=== PATIENT | female | born 1940 | race Hispanic/Latino ===

== ENCOUNTER 2016-12-16 10:14 | Emergency (ER) | payer MEDICARE ==
[~2016-12-16] VITALS: Ht 154.9 cm; Wt 70.5 kg
[~2016-12-16 10:14] MED LIST: AMLO5TAB2 PO; ASPI-973 PO; ATRINH INH; ATRV10T PO; Acetaminophen PO; BECL8.7A6 IH; CHOL100043 PO; FERR324T2 PO; FLUT16SP NS; GABA-500 PO; INSU100V7 SUBQ; LABE200T PO; LOPE2CAP PO; MONT10TA23 PO; MYCC TOPICAL; OMEP20CA11 PO; ONDA8TAB10 SL
[2016-12-16 10:44] VITALS: BP 128/46; PULSE 72; RESP 12; O2SAT 98
--- NOTE | 2016-12-16 11:30 | ED.REPORT ---
HPI-General Illness Date of Service Dec 16, 2016 ED Provider: Dariel Laguna MD 76 year old female with a history of diabetes, kidney diseased, and HTN presents to the ER via EMS accompanied by her daughter due to an episode of dizziness and near syncope this morning, with nausea and vomiting en route. Associated symptoms include weakness and fatigue. Daughter states that she accidentally took her morning amlodipine last night. She denies abdominal pain, hematemesis, bloody stools, melena, and fever. Patient was discharged from the hospital here a month ago with diagnoses of sepsis, and gangrenous cholecystitis. Since her discharge she has been weak and off-balance, and has fallen multiple times. Seen by Dr. Canada, Nephrology, yesterday for follow- up. Patient lives independently in her home, and receives weekly assistance from nurses at [facility]. Nursing Notes Stated Complaint: WEAK,DIZZY,NECK PAIN Chief Complaint: Neuro Symptoms/ Deficits Nursing Notes Reviewed: Yes Allergies: Coded Allergies: ciprofloxacin HCl (Verified Allergy, Mild, Rash,Itching,, 10/02/16) per PCP record from [facility] erythromycin base (Verified Allergy, Mild, unknown, 10/02/16) per PCP record at [facility] morphine (Verified Adverse Reaction, Intermediate, Nausea,Vomiting, ) Scheduled Amlodipine (Amlodipine) 5 Mg Tablet 10 MG PO DAILY Aspirin (Aspirin) 81 Mg Tablet 81 MG PO DAILY Atorvastatin (Lipitor) 10 Mg Tab 10 MG PO DAILY Cephalexin (Keflex) 500 Mg Capsule 500 MG PO QID Cholecalciferol (Vitamin D3) (Vitamin D) 1,000 Unit Tablet 2,000 UNIT PO DAILY Ferrous Sulfate (Ferrous Sulfate) 324 Mg Tablet.dr 324 MG PO DAILY Fluticasone Propionate (Fluticasone Propionate Nasal) 16 Gm [place].susp 2 SPRAY NS DAILY Gabapentin (Gabapentin) 100 Mg Capsule 100 MG PO HS Insulin Glargine (Lantus U100 Insulin Vial) 100 Unit/Ml Vial 8 UNIT SUBQ BID Ipratropium [place] (Atrovent HFA) 200 Puff/12.9 Gm Inhaler 2 PUFF INH QID Labetalol (Labetalol) 200 Mg Tablet 300 MG PO Q8H Montelukast (Montelukast) 10 Mg Tablet 10 MG PO HS Nystatin (Nystatin) 60 Applic/15 Gm Cream 1 APPLIC TOPICAL BID Omeprazole (Omeprazole) 20 Mg Capsule.dr 40 MG PO DAILY Scheduled PRN ([Acetaminophen]) 325 MG TABLET 650 MG PO QID PRN PRN For Pain Beclomethasone Dipropionate (Qvar) 8.7 Gm Aer.w.adap 2 PUFFS IH BID PRN PRN For Shortness of Breath Loperamide (Loperamide) 2 Mg Capsule 2 MG PO Q4H PRN PRN For Diarrhea or Loose Stool Miscellaneous Medications Ondansetron ODT (Ondansetron ODT) 8 Mg Tab.rapdis 8 MG SL General Time Seen by MD: 11:26 Chief Complaint Dizziness, Other (Near Syncope) Hx Obtained From: Patient Arrived By: Ambulance Sudden in Onset?: No Onset Occurred: 5 - 8 hours ago Associated with: Reports: Nausea, Vomiting, Denies: Abdominal pain, Chest pain, Cough, Fever, Shortness of breath Context Related History: Reports Diabetes mellitus Past Medical History Past Medical History h/o vertigo Severe HTN UTI Atypical pneumonia Reports: Asthma, Diabetes mellitus, GERD, Hyperlipidemia, Hypertension Reports: Kidney disease, Urinary tract infection Past Surgical History Reports: Appendectomy, Hysterectomy Family History noncontributory Smoking History Never Smoker Social History Alcohol Use: Denies alcohol use Other Social History: Good social support, , Local resident Ambulatory Status Independent Review of Systems Full Review of Systems Constitutional: Reports: Fatigue, Weakness - generalized, Denies: Chills, Fever Respiratory: Denies: Non-productive cough, Shortness of breath Cardiovascular: Denies: Chest pain GI: Reports: Nausea, Vomiting, Denies: Abdominal pain, Bloody/tarry stool, Hematemesis, Hematochezia, Melena Neurologic: Reports: Dizziness, Lightheaded, Problem walking, Denies: Focal weakness, Headache Complete sys rev & neg: except as marked. Physical Exam Vital Signs Vital Signs Date Time Temp Pulse Resp B/P Pulse Ox O2 Delivery O2 Flow Rate FiO2 12/16/16 15:21 81 13 155/53 96 Room Air 12/16/16 14:41 81 13 155/53 96 Room Air 12/16/16 14:18 84 13 152/48 97 Room Air 12/16/16 12:43 71 13 135/54 98 Room Air 12/16/16 10:44 36.4 72 12 128/46 98 Room Air Initial VS: Reviewed Neck: Supple, Non-tender, Full range of motion Extremities: Vascular intact, Neuro intact, No swelling, No tenderness Skin: Warm, Dry, No cyanosis Neurologic: Alert, Oriented, Nonfocal General/Constitutional: Awake, Alert, Well developed, Well nourished Head / Eyes: Atraumatic, Normocephalic, PERRL, EOMI Respiratory / Chest: Breath sounds NL, No respiratory distress, No rales, No rhonchi, No wheezing Cardiovascular: Heart rate NL, Regular rhythm, Heart sounds NL, Cap refill not delayed, Peripheral circulation NL Abdomen: Non-tender, No guarding, No rebound Neurologic: Oriented X3, Speech NL, No motor deficits, No sensory deficits, CN II - XII intact Interpretation & Diagnostics Lab Results Interpretation Result Diagram: 12/16/16 1145 12/16/16 1145 Test 12/16/16 11:45 12/16/16 12:40 White Blood Count 8.5th/mm3 (3.8-10.1) Red Blood Count 3.78mil/mm3 (3.90-5.20) Hemoglobin 10.5g/dL (12.0-15.6) Hematocrit 32.9% (35.0-46.0) Mean Corpuscular Volume 87.0fL (81-100) Mean Corpuscular Hemoglobin 27.8pg (27.0-35.0) Mean Corpuscular Hemoglobin Concent 31.9% (32.0-37.0) Red Cell Distribution Width 14.9% (12.3-15.4) Platelet Count 305bil/L (150-400) Neutrophils (%) (Auto) 57.4% (40-74) Lymphocytes (%) (Auto) 20.8% (14-46) Monocytes (%) (Auto) 8.2% (4-12) Eosinophils (%) (Auto) 9.4% (0-5) Basophils (%) (Auto) 0.9% (0-3) Sodium Level 139mEq/L (134-144) Potassium Level 4.4mEq/L (3.5-5.2) Chloride Level 105mEq/L (97-108) Carbon Dioxide Level 21mmol/L (18-29) Blood Urea Nitrogen 33mg/dL (8-27) Creatinine 1.54mg/dL (0.57-1.00) Estimat Glomerular Filtration Rate 47mL/min (>59) Glucose Level 38mg/dL (60-99) Calcium Level 9.5mg/dL (8.5-10.1) Magnesium Level 1.6mg/dL (1.6-2.6) Total Bilirubin 0.2mg/dL (0.0-1.2) Aspartate Amino Transf (AST/SGOT) 31U/L (0-50) Alanine Aminotransferase (ALT/SGPT) 35U/L (0-32) Alkaline Phosphatase 135U/L (25-165) Total Protein 8.3g/dL (6.4-8.4) Albumin 3.9g/dL (3.4-5.0) Urine Color Yellow (YELLOW) Urine Appearance Slightly cloudy Urine pH 5.5 (5.0-8.0) Urine Specific [place] 1.030 (1.003-1.035) Urine Protein 100mg/dL (NEG,TRACE) Urine Glucose (UA) Negativemg/dL (NEGATIVE) Urine Ketones Negativemg/dL (NEGATIVE) Urine Occult Blood Negative (NEGATIVE) Urine Nitrite Negative (NEGATIVE) Urine Bilirubin Negative (NEGATIVE) Urine Urobilinogen Normalmg/dL (NORMAL) Urine Leukocyte Esterase Trace (NEGATIVE) Urine RBC 0-2/hpf (0-2) Urine WBC 6-10/hpf (0-5) Urine Epithelial Cells Occasional/hpf (NONE-MOD) Urine Crystals Amorphous urates (NONE Urine Bacteria Many/hpf (NONE-FEW) Urine Hyaline Casts None/lpf (NONE) Urine Granular Casts None seen (NONE SEEN) Urine Waxy Casts None seen (NONE SEEN) Urine Red Blood Cell Casts None seen (NONE SEEN) Urine White Blood Cell Casts None seen (NONE SEEN) Urine Mucus None seen (None Seen) Urine Trichomonas None seen (NONE SEEN) Urine Yeast None (NONE SEEN) Urinalysis Comment None Urine Culture Reflexed Indicated ECG Interpretation ECG Interpretation: sinus rhythm, rate [address] changes T wave inversions in v5 and v6 Time: 13:13 Interpreted by: ED physician X-Ray Chest Interpretation Chest Xray Interpretation: IMPRESSION: Increased pulmonary vascularity suggesting mild pulmonary congestion. Dictated by: Odilia Kessler M.D. on 12/16/2016 at 12:20 Approved by: Odilia Kessler M.D. on 12/16/2016 at 12:21 View: Portable, 1 view Interpretation / Wet Read by: Interpret - Radiologist Re-Eval/Medical Decision Med Decision/Clinical Course 76-year-old female history of CK D, diabetes, hypertension presenting complaining of weakness 1 month. She reports she has felt weak since being discharged from the hospital one month ago. She is able to ambulate. Lab stable. Vital signs stable. Urine with UTI. Blood sugar was 200 home. It was 38 here but she had not eaten for many hours. She was given 1 amp of D50 and food and her blood sugar remained stable at 200 for greater than 1 hour. Patient was given 1 dose of Rocephin for UTI. We will treat for UTI. Recommend she follow up with primary doctor in 2 days. Recheck blood sugar every couple hours today. Return precautions given. Source of Hx: Old records Time of Eval: 14:47 Re-Evaluation/Progress Note: Discussed lab and radiology results and plan to discharge. Patient understands and agrees to the plan. Return precautions given. All other questions addressed. Counseled Regarding: Diagnosis, Lab results, Need for follow-up, When/why to return to ED Discharge & Departure Primary Impression: UTI (urinary tract infection) Additional Impression: Hypoglycemia Disposition: Home Discharge Condition All VS Reviewed: Yes Condition: Stable Patient Instructions: Urinary Tract Infection in Women (DC) Additional Instructions: Take antibiotics as scheduled, continue blood sugar checks every two hours. Follow-up with your primary care provider tomorrow. Return to the ER if you develop vomiting, abdominal pain, fever, vomiting, or any other worsening or concerning symptoms. Referrals: Jovana Estrada MD (PCP) Fangibmary jo Attestation Portions of this note were transcribed by Khanh Foss. I, Dr. Laguna, personally performed the history, physical exam and medical decision-making; I reviewed and confirmed the accuracy of the information in the transcribed note. Signed by: Genet Gillis, 12/16/2016 - 15:16 copies to: Jovana Estrada MD, Ben M MD Dec 16, 2016 11:29 KHANH FOSS Dec 16, 2016 11:44 Hernesto Amato Dec 16, 2016 13:11
[2016-12-16] MEDS ORDERED: 0.9% Sodium Chloride 1,000 ML IV ONE (11:44)
[2016-12-16] MEDS ORDERED: Ondansetron 2 mg/mL 2 mL Inj IVPUSH ONE (11:45)
[2016-12-16] MEDS ORDERED: Ondansetron 2 mg/mL 2 mL Inj IVPUSH PRN (11:45)
[2016-12-16 12:03] LABS: BASOPHILS % (AUTO) 0.9 % (0-3); EOSINOPHILS % (AUTO) 9.4 % (0-5); MONOCYTES % (AUTO) 8.2 % (4-12); Mean Corpuscular Hemoglobin 27.8 pg (27.0-35.0); NEUTROPHILS % (AUTO) 57.4 % (40-74); Platelet Count 305 bil/L (150-400)
--- NOTE | 2016-12-16 12:23 | DRSVH ---
PROCEDURE: X-RAY CHEST ONE VIEW, PORTABLE ([id number]) INDICATIONS: vomiting, weakness TECHNIQUE: One view of the chest was acquired. COMPARISON: [facility], CR, XR CHEST 1VW (PORTABLE), 10/14/2016, 5:10. FINDINGS: Surgical changes and devices: None. Lungs and pleura: Increased pulmonary vascularity. No focal consolidation. No pleural effusions or p neumothorax. Mediastinum: Mediastinal contours appear normal. Heart size is normal. Bones and chest wall: No suspicious bony lesions. Overlying soft tissues appear unremarkable. IMPRESSION: Increased pulmonary vascularity suggesting mild pulmonary congestion. Dictated by: Odilia Kessler M.D. on 12/16/2016 at 12:20 Approved by: Odilia Kessler M.D. on 12/16/2016 at 12:21
[2016-12-16 12:42] LABS: Magnesium 1.6 mg/dL (1.6-2.6)
[2016-12-16 12:43] VITALS: BP 135/54; PULSE 71; RESP 13; O2SAT 98
[2016-12-16 13:05] LABS: APPEARANCE,URINE SLIGHTLY CLOUDY (CLEAR,HAZY); COLOR,URINE YELLOW (YELLOW); OCCULT BLOOD,URINE NEGATIVE (NEGATIVE); PH,URINE 5.5 (5.0-8.0)
[2016-12-16 13:06] LABS: UROBILINOGEN,URINE NORMAL (NORMAL)
[2016-12-16] MEDS ORDERED: cefTRIAXone Inj 1,000 MG in Dextrose 5% Minibag Plus 50 ML IV SCH (13:20)
[2016-12-16 14:18] VITALS: BP 152/48; PULSE 84; RESP 13; O2SAT 97
[2016-12-16 14:41] VITALS: BP 155/53; PULSE 81; RESP 13; O2SAT 96
[2016-12-16] MEDS ORDERED: CEPH-512 PO (14:58)
[2016-12-16 15:21] VITALS: BP 155/53; PULSE 81; RESP 13; O2SAT 96
== END 2016-12-16 15:03 | disposition home or self-care (01) ==
LOC: EDUNIT# 10:14 → SED 10:14 → EDBD 10:14 → SED 15:03
DX: N39.0 Urinary tract infection, site not specified (principal); E11.649 Type 2 diabetes mellitus with hypoglycemia without coma; B96.89 Other specified bacterial agents as the cause of diseases classified elsewhere; R53.1 Weakness; I12.9 Hypertensive chronic kidney disease with stage 1 through stage 4 chronic kidney disease, or unspecified chronic kidney disease; E11.22 Type 2 diabetes mellitus with diabetic chronic kidney disease; N18.9 Chronic kidney disease, unspecified; J45.909 Unspecified asthma, uncomplicated; K21.9 Gastro-esophageal reflux disease without esophagitis; E78.5 Hyperlipidemia, unspecified; Z79.82 Long term (current) use of aspirin; Z79.4 Long term (current) use of insulin; Z88.1 Allergy status to other antibiotic agents; Z88.5 Allergy status to narcotic agent
CPT/HCPCS: 36415; 71010; 80053; 81000; 82948; 83735; 85025; 87086; 87088; 93005; 96361; 96365; 96375; 99285; J0696; J2405; J7030

== ENCOUNTER 2017-01-05 13:18 | Observation (INO) | payer MEDICARE ==
[~2017-01-05] VITALS: Ht 154.9 cm; Wt 68.5 kg
[2017-01-05] VITALS (11 sets, daily range): BP systolic 135–187; BP diastolic 52–70; PULSE 72–85; RESP 12–18; O2SAT 96–99
[~2017-01-05 13:18] MED LIST changes: +CEPH-512 PO
[2017-01-05 13:51] LABS: BASOPHILS % (AUTO) 0.4 % (0-3); EOSINOPHILS % (AUTO) 0.4 % (0-5); MONOCYTES % (AUTO) 2.4 % (4-12); Mean Corpuscular Hemoglobin 27.7 pg (27.0-35.0); Mean Corpuscular Volume 86.8 fL (81-100); NEUTROPHILS % (AUTO) 81.4 % (40-74); Platelet Count 278 bil/L (150-400)
[2017-01-05] MEDS ORDERED: 0.9% Sodium Chloride 1,000 ML IV ONE (14:09)
[2017-01-05] MEDS ORDERED: Ondansetron 2 mg/mL 2 mL Inj IV PRN ×2 (14:10→16:15)
--- NOTE | 2017-01-05 14:50 | ED.REPORT ---
HPI-Syncope Date of Service Jan 05, 2017 ED Provider: Abi Barillas MD History of Present Illness: Patient is a 76 y.o. F with past medical history of diabetes type II, TIA, HTN, vertigo, asthma, ROLA. She presents to ED via EMS with complaint of witnessed near sycopal episode. Patient reports that she was feeling ill and nauseaous, went into the kitichen and began to faint. Her son who witnessed the event stated that "I caught her and helped her and braced her up in a ebar hug and she woke up a bit and then vomited." Son stated that after patient vomited she was very confused and not herself. Patient stated that she has vomited 3-4 times since initial event. At time of examination patient states that she is feeling better, vomiting has made her feel better, able to recall events before and after near syncope, denies head trauma, reports similar events in the past. Patient denies headache, gait imbalance, visual loss, blood in vomit, diarrhea, constipation, dysuria, fever, chills. Nursing Notes Stated Complaint: NEAR SYNCOPE Chief Complaint: Neuro Symptoms/ Deficits Nursing Notes Reviewed: Yes Allergies: Coded Allergies: ciprofloxacin HCl (Verified Allergy, Mild, Rash,Itching,, 01/05/17) per PCP record from [facility] erythromycin base (Verified Allergy, Mild, unknown, 01/05/17) per PCP record at [facility] morphine (Verified Adverse Reaction, Intermediate, Nausea,Vomiting, ) Scheduled Amlodipine (Amlodipine) 5 Mg Tablet 10 MG PO DAILY Aspirin (Aspirin) 81 Mg Tablet 81 MG PO DAILY Atorvastatin (Lipitor) 10 Mg Tab 10 MG PO DAILY Cephalexin (Keflex) 500 Mg Capsule 500 MG PO QID Cholecalciferol (Vitamin D3) (Vitamin D) 1,000 Unit Tablet 2,000 UNIT PO DAILY Ferrous Sulfate (Ferrous Sulfate) 324 Mg Tablet.dr 324 MG PO DAILY Fluticasone Propionate (Fluticasone Propionate Nasal) 16 Gm [place].susp 2 SPRAY NS DAILY Gabapentin (Gabapentin) 100 Mg Capsule 100 MG PO HS Insulin Glargine (Lantus U100 Insulin Vial) 100 Unit/Ml Vial 8 UNIT SUBQ BID Ipratropium [place] (Atrovent HFA) 200 Puff/12.9 Gm Inhaler 2 PUFF INH QID Labetalol (Labetalol) 200 Mg Tablet 300 MG PO Q8H Montelukast (Montelukast) 10 Mg Tablet 10 MG PO HS Nystatin (Nystatin) 60 Applic/15 Gm Cream 1 APPLIC TOPICAL BID Omeprazole (Omeprazole) 20 Mg Capsule.dr 40 MG PO DAILY Scheduled PRN ([Acetaminophen]) 325 MG TABLET 650 MG PO QID PRN PRN For Pain Beclomethasone Dipropionate (Qvar) 8.7 Gm Aer.w.adap 2 PUFFS IH BID PRN PRN For Shortness of Breath Loperamide (Loperamide) 2 Mg Capsule 2 MG PO Q4H PRN PRN For Diarrhea or Loose Stool Miscellaneous Medications Ondansetron ODT (Ondansetron ODT) 8 Mg Tab.rapdis 8 MG SL General Time Seen by Provider: 13:50 Chief Complaint Almost passed out Hx Obtained From: Patient, Spouse, Son Arrived By: Ambulance Onset Occurred: Just prior to arrival Progression Since Onset: Rapidly improving Immunizations: All up to date Similar Sx Previous: Yes Risk-Syncope CAD Risk Stratification Hypertension PERC Rule Age 50 or over Well's Criteria for PE Well's PE Score: 0-2 pts (low risk 3.6%) KODY for STEMI Age 65-74 (2), DM / HTN / Angina (1) KODY for STEMI Score: 3 pts (4.4% 30d mort) KODY for UA/NSTEMI Age 65 yrs or over (1), 3+ CAD risk factors (1) KODY for UA/NSTEMI Score: 2 pts (8.3% 30d mort) Past Medical History Past Medical History h/o vertigo Severe HTN UTI Atypical pneumonia Reports: Asthma, Diabetes mellitus, GERD, Hyperlipidemia, Hypertension Reports: Kidney disease, Urinary tract infection Past Surgical History Reports: Appendectomy, Hysterectomy Family History noncontributory Smoking History Never Smoker Social History Alcohol Use: Denies alcohol use Other Social History: Good social support, , Local resident Ambulatory Status Independent Review of Systems Basic Review of Systems : No dysuria, No frequency Hematologic: No bleeding, No bruising Endocrine: No cold intolerance, No heat intolerance, No weight gain, No weight loss Constitutional: Denies: Chills, Fatigue, Fever Eyes: Denies: Blurred bilateral Ears / Nose / Throat: Denies: Ear ringing bilateral, Hearing loss bilateral Cardiovascular: Reports: Syncope, Denies: Chest pain, Dyspnea on exertion GI: Reports: Nausea, Vomiting, Denies: Abdominal pain, Bloody/tarry stool, Diarrhea, Hematemesis, Melena Musculoskeletal: Denies: Back pain, Extremity pain, Extremity swelling Neurologic: Reports: Syncope, Denies: Abnormal movement, Change LOC, Confusion, Dizziness, Focal weakness, Headache, Lightheaded, Numbness, Problem walking, Seizure, Shaking, Slurred speech, Unable to speak, Vision change, Weakness Complete sys rev & neg: except as marked. Physical Exam Initial Vital Signs Vital Signs (First) Date Time Temp Pulse Resp B/P Pulse Ox O2 Delivery O2 Flow Rate FiO2 01/05/17 13:30 36.9 77 18 152/56 98 Room Air Initial VS: Reviewed Head / Eyes: Atraumatic, Normocephalic, PERRL ENT: Mucous membranes moist, Conjunctiva normal, No scleral icterus Neck: Supple, Non-tender, Full range of motion Abdomen / GI: Soft, Non-tender, No guarding, No rebound, No distention Back: No CVA tenderness Lymphatic: No lymphadenopathy Upper Extremities: Vascular intact, Neuro intact, No swelling, No tenderness Psychiatric: Mood/affect normal, Behavior normal, Normal thought content General/Constitutional: Awake, Alert, Well appearing Respiratory / Chest: Breath sounds NL, Breath sounds = bilat, No respiratory distress, No rales, No rhonchi, No wheezing Cardiovascular: Heart rate NL, Regular rhythm, Heart sounds NL, No murmurs, Cap refill not delayed, Peripheral circulation NL Lower Extremity / Pelvis / MS: Inspection NL, No swelling, Non-tender, No erythema, No deformity, Neurologic intact, Vascular intact, No edema Neurologic: Oriented X3, Speech NL, No motor deficits, No sensory deficits, CN II - XII intact, Reflexes equal bilat, Cerebellar NL, Memory NL Abdomen: Soft, Non-tender, No guarding, No rebound Interpretation & Diagnostics Lab Results Interpretation Result Diagram: 01/05/17 1335 01/05/17 1400 Test 01/05/17 13:35 01/05/17 14:00 White Blood Count 9.8th/mm3 (3.8-10.1) Red Blood Count 4.01mil/mm3 (3.90-5.20) Hemoglobin 11.1g/dL (12.0-15.6) Hematocrit 34.8% (35.0-46.0) Mean Corpuscular Volume 86.8fL (81-100) Mean Corpuscular Hemoglobin 27.7pg (27.0-35.0) Mean Corpuscular Hemoglobin Concent 31.9% (32.0-37.0) Red Cell Distribution Width 14.5% (12.3-15.4) Platelet Count 278bil/L (150-400) Neutrophils (%) (Auto) 81.4% (40-74) Lymphocytes (%) (Auto) 13.2% (14-46) Monocytes (%) (Auto) 2.4% (4-12) Eosinophils (%) (Auto) 0.4% (0-5) Basophils (%) (Auto) 0.4% (0-3) Magnesium Level 1.6mg/dL (1.6-2.6) Sodium Level 141mEq/L (134-144) Potassium Level 4.1mEq/L (3.5-5.2) Chloride Level 105mEq/L (97-108) Carbon Dioxide Level 20mmol/L (18-29) Blood Urea Nitrogen 8mg/dL (8-27) Creatinine 0.58mg/dL (0.57-1.00) Estimat Glomerular Filtration Rate 146mL/min (>59) Glucose Level 64mg/dL (60-99) Calcium Level 8.3mg/dL (8.5-10.1) Total Bilirubin 0.3mg/dL (0.0-1.2) Aspartate Amino Transf (AST/SGOT) 31U/L (0-50) Alanine Aminotransferase (ALT/SGPT) 31U/L (0-32) Alkaline Phosphatase 165U/L (25-165) Troponin T < 0.010ug/L (0.0-0.011) Total Protein 5.9g/dL (6.4-8.4) Albumin 2.9g/dL (3.4-5.0) Hold [place] Top Tube Received (Received) ECG Interpretation Time: 14:00 Normal ECG Interpretation: Normal rate (78), Normal sinus rhythm, No acute ischemic changes, Normal QRS Atrium and Vent Size: Ventricle enlarged - L (with secondary repolarization abnormality) X-Ray Chest Interpretation Chest Xray Interpretation: IMPRESSION: No acute cardiopulmonary abnormality Dictated by: Roland Lua M.D. on 01/05/2017 at 14:49 Approved by: Roland Lua M.D. on 01/05/2017 at 14:50 CT Head Interpretation IMPRESSION: 1. No acute intracranial abnormality. Dictated by: Alix Polo M.D. on 01/05/2017 at 15:53 Approved by: Alix Polo M.D. on 01/05/2017 at 15:54 Interpretation / Wet Read by: Interpret - Radiologist Re-Eval/Medical Decision Med Decision/Clinical Course Patient is a 76 y.o. F with multiple risk factors for TIA/CVA presented with hsitory of acute onset near syncope and altered mental status, nausea and vomiting. By time of presentation to ED patient's condition vastly improved, no focal neurological deficits seen on exam. At this time a stroke is not suspected. However, given patient's history and risk factors CT scan of head ordered to rule out TIA/acute intracranial bleed. EKG did not show acute STEMI, troponin ordered to r/o cardiogenic causes. Patient treated for volume depleation, nausea, vomiting. DDx TIA, intracranial bleed, UTI, gastroenteritis, cardiogenic syncope, vasovagal syncope, dehydration Counseled Regarding: Diagnosis, Lab results, Need for follow-up, When/why to return to ED Discharge & Departure Impression: Primary Impression: Syncope Syncope type: unspecified Qualified Code: R55 - Syncope and collapse Additional Impression: Type II diabetes mellitus Diabetes mellitus complication status: without complication Qualified Code: E11.9 - Type 2 diabetes mellitus without complications Disposition: ADMITTED TO HOSPITAL Referrals: Jovana Estrada MD (PCP) Attending Statement Patient seen and examined. Acute syncopal episode concern for TIA. CT of the brain is unremarkable. Certainly may have been a vasovagal episode but at this point neurologic and cardiac etiologies are higher in the differential and patient will be admitted for additional evaluation Risk Factors NIH Stroke Scale Level of Consciousness: Alert and responsive (0) Ask Month & Age: Both questions right (0) Open/Close Eyes/Hand Drying Machine Receiver: Performs both tasks (0) Horizontal EO Movements: None (0) Visual [place]: No visual loss (0) Facial Palsy: Normal symmetry (0) Right Arm Motor Drift (10s): No drift 10 sec (0) Left Arm Motor Drift (10s): No drift 10 sec (0) Right Leg Motor Drift (5s): No drift 5 sec (0) Left Leg Motor Drift (5s): No drift 5 sec (0) Limb Ataxia FNF/Heel-Marrero: No ataxia (0) Sensation (Arms/Legs/Face): No sensory loss (0) Language Aphasia: No aphasia, normal (0) Dysarthria: No dysarthria, normal (0) Extinction/Inattention: No exctinct/inattent (0) NIHSS Score: 0 Time NIHSS Performed: 14:10 Date NIHSS Performed: Jan 05, 2017 )( CVA Risk Stratification Age >60 Diabetes mellitus Hypertension Prior CVA/TIA CONNOR NORTON DO Jan 05, 2017 14:50 Abi Barillas MD Jan 05, 2017 16:37
--- NOTE | 2017-01-05 14:52 | DRSVH ---
PROCEDURE: X-RAY CHEST ONE VIEW, PORTABLE ([id number]) INDICATIONS: SYNCOPAL TECHNIQUE: One view of the chest was acquired. COMPARISON: 12/16/2016 FINDINGS: Surgical changes and devices: None. Lungs and pleura: No pleural effusions or pneumothorax. Lungs are clear. Mediastinum: Mediastinal contours appear normal. Heart size is normal. Aortic calcifications. Prob able calcifications in the mitral annulus. Bones and chest wall: No suspicious bony lesions. Overlying soft tissues appear unremarkable. IMPRESSION: No acute cardiopulmonary abnormality Dictated by: Roland Lua M.D. on 01/05/2017 at 14:49 Approved by: Roland Lua M.D. on 01/05/2017 at 14:50
[2017-01-05 14:58] LABS: TROPONIN T < 0.010 ug/L (0.0-0.011)
--- NOTE | 2017-01-05 15:56 | DRSVH ---
PROCEDURE: CT BRAIN WITHOUT CONTRAST ([id number]) INDICATIONS: Syncope. TECHNIQUE: Noncontrast 4.5 mm thick angled axial sections acquired from the foramen magnum to the vertex, with c oronal reformats. COMPARISON: [facility], CT, CT BRAIN WO CON, 10/02/2016, 21:29. [facility], CT, CT BRAIN WO CON, 07/05/2015, 13:45. [facility], CT, BRAIN W/O CONTRAST, 09/06/2014, 18:47. FINDINGS: Image quality: Excellent. CSF spaces: Basal cisterns are patent. No extra-axial fluid collections. The ventricles are symmet willie in size and shape. Brain: No intracranial bleeds or masses. There is cerebral volume loss for age, with resultant vent ricular and sulcal prominence. There are periventricular and deep white matter chronic small vessel ischemic changes. There is intracranial internal carotid artery atherosclerosis. Skull and face: Calvarium and visualized facial bones appear intact, without suspicious lesions. Sinuses: Visualized sinuses and mastoids are clear. IMPRESSION: 1. No acute intracranial abnormality. Dictated by: Alix Polo M.D. on 01/05/2017 at 15:53 Approved by: Alix Polo M.D. on 01/05/2017 at 15:54
[2017-01-05] MEDS ORDERED: Polyethylene Glycol (PEG) 17 Gm Powder PO PRN (16:15)
[2017-01-05] MEDS ORDERED: Alum-Mag Hydrox-Simeth 30 mL Suspension PO PRN (16:15)
[2017-01-05] MEDS ORDERED: Labetalol 5 mg/mL 4 mL Inj IVPUSH PRN (16:15)
[2017-01-05] MEDS ORDERED: HYDROcodone-APAP 5-325 mg Tablet PO PRN (16:15)
[2017-01-05] MEDS ORDERED: Glucose 40% Oral Gel 15 Gm Tube PO PRN (16:40)
--- NOTE | 2017-01-05 17:03 | PCM.HPMED ---
Subjective Date of Service Jan 05, 2017 Primary Provider: Admitting Physician: Primary Care Physician: Jovana Estrada MD Attending Physician: Admit Status: From the Emergency Department, 23-Hour Observation Chief Complaint: Altered Mental Status, Fall History of Present Illness: Patient is a 76 year old female with a past medical history of Essential Hypertension, Diabetes Mellitus Type II, Hyperlipidemia, BPV, Asthma, and GERD. She presents to the ER at [facility] after experiencing a fall earlier today. Pt does not completely remember the fall, and therefore hx is taken from her son who witnessed the event. Pts son reports hearing his mother fall in the living room. When he ran into the room, he found her laying on her left side clutching her walker. He states she had not lost consciousness, but was unable to stand as bilateral legs seemed to be very weak. Pts son lifted her up and sat her on the couch. He reports his mother seemed very confused and was able to respond to his verbal commands. She also appeared to have left sided facial droop and appeared to drool out of the left side of her mouth. Pt then suddenly became nauseated and began to vomit. Shortly after vomiting, pts mentation returned to baseline and her facial droop resolved. Pt denies any preceding chest pain, shortness of breath, visual changes, palpitations, and headache. Pt denies any weakness in her upper and lower extremities at present. Pt is currently taking Aspirin daily. No other complaints or concerns at this time. Review of Systems: All systems reviewed and are negative except for what has already been mentioned in the HPI. Allergies Coded Allergies: ciprofloxacin HCl (Verified Allergy, Mild, Rash,Itching,, 01/05/17) per PCP record from [facility] erythromycin base (Verified Allergy, Mild, unknown, 01/05/17) per PCP record at [facility] morphine (Verified Adverse Reaction, Intermediate, Nausea,Vomiting, ) Home Medications Pts home medications have not yet been reconciled. PMH 1. Essential Hypertension 2. TIA 3. Hyperlipidemia 4. Asthma 5. Diabetes Mellitus Type II 6. BPV Surgical History 1. Hysterectomy 2. Appendectomy Family History Sister - Diabetes Mellitus Type II Social History Hx Alcohol Use: No Hx Substance Use: No Hx Tobacco Use: No Smoking Status: Never Smoker Exam Vital Signs Vital Sign - Last Date Time Temp Pulse Resp B/P Pulse Ox O2 Delivery O2 Flow Rate FiO2 01/05/17 13:30 36.9 77 18 152/56 98 Room Air Exam GENERAL: NAD, Pt laying in bed comfortably HEENT: AT/NC, PERRLA, EOMI, Mucus Membranes are moist CARDIAC: RRR; No M/R/G PULM: CTAB; No wheezes or rhonchi bilaterally ABD: Soft, Nontender, Nondistended, Positive bowel sounds in all quadrants, No Hepatosplenomegaly appreciated EXT: No C/C/E; No calf tenderness bilaterally SKIN: Warm, Dry, [place], and Intact NEURO: Alert and oriented x3; Following all commands; CN II-XII grossly intact ; 4/5 strength in bilateral upper and lower extremities PSYCH: Normal mood and affect Lab and Diagnostics Result Diagram: 01/05/17 1335 01/05/17 1400 X-Rays, CTs and MRIs CT BRAIN WITHOUT CONTRAST INDICATIONS: Syncope. TECHNIQUE: Noncontrast 4.5 mm thick angled axial sections acquired from the foramen magnum to the vertex, with coronal reformats. COMPARISON: [facility], CT, CT BRAIN WO CON, 10/02/2016, 21:29. [facility], CT, CT BRAIN WO CON, 07/05/2015, 13:45. [facility], CT, BRAIN W/O CONTRAST, 09/06/2014, 18:47. FINDINGS: Image quality: Excellent. CSF spaces: Basal cisterns are patent. No extra-axial fluid collections. The ventricles are symmetric in size and shape. Brain: No intracranial bleeds or masses. There is cerebral volume loss for age , with resultant ventricular and sulcal prominence. There are periventricular and deep white matter chronic small vessel ischemic changes. There is intracranial internal carotid artery atherosclerosis. Skull and face: Calvarium and visualized facial bones appear intact, without suspicious lesions. Sinuses: Visualized sinuses and mastoids are clear. IMPRESSION: 1. No acute intracranial abnormality. Assessment & Plan Patient is a 76 year old female with a past medical history of Essential Hypertension, Hyperlipidemia, Diabetes Mellitus Type II, TIA, GERD, and Asthma who presents to hospital with an Acute CVA. 1. Acute CVA - This is likely a TIA - Will admit to floor under observation - NPO for now - Will obtain a Speech Therapy evaluation before starting a diet - Start IV NS at 80 mL/hour while NPO - Continue home Aspirin - Start Plavix 75 mg PO daily, first dose now - Start Atorvastatin 40 mg PO daily - Check fasting lipid panel in AM - Will order MRI of brain without contrast - Will order an Echocardiogram - Will order a Carotid Duplex US - Will order a PT/OT evaluation - Telemetry monitoring - Hold antihypertensives for now to allow hypertension for first 24 hours - Give IV Lebatolol PRN for SBP greater than 220 mmHg 2. Essential Hypertension - Well controlled - Hold home antihypertensives for now given #1 - Monitor BP closely 3. Hyperlipidemia - Increase Atorvastatin to 40 mg PO daily now - Check fasting lipid panel in AM 4. Diabetes Mellitus, Type II - Start medium dose SSI - Check FSBS q AC and HS - Check HgbA1c now 5. Asthma - Not in acute exacerbation - Continue home inhalers 6. Prophylaxis - SCDs - PPI CODE STATUS: Partial Code (chest compressions okay, but DNI), per discussion with patient and family at bedside. Blake Evans MD Jan 05, 2017 17:03
[2017-01-05 17:19] LABS: APPEARANCE,URINE CLEAR (CLEAR,HAZY); COLOR,URINE YELLOW (YELLOW); OCCULT BLOOD,URINE MODERATE (NEGATIVE); PH,URINE 7.5 (5.0-8.0); UROBILINOGEN,URINE NORMAL (NORMAL)
[2017-01-05 17:52] LABS: TROPONIN T < 0.010 ug/L (0.0-0.011)
[2017-01-05] MEDS ORDERED: ATRINH INH (17:53)
[2017-01-05] MEDS ORDERED: ALBU8.5H2 INHALATION (17:53)
[2017-01-05] MEDS ORDERED: AMLO5TAB2 PO (17:53)
[2017-01-05] MEDS ORDERED: LABE300T PO (17:53)
[2017-01-05] MEDS ORDERED: INSU100V7 SUBQ (17:53)
--- NOTE | 2017-01-05 18:00 | DRSVH ---
PROCEDURE: US BILATERAL DUPLEX DOPPLER IMAGING OF THE CAROTIDS ([id number]) INDICATIONS: Evaluate stroke follow up TECHNIQUE: Color and pulse Doppler interrogation was performed of both carotid systems, with image documentation and velocity measurements. COMPARISON: [facility], US, US CAROTID DPLX DOPPLER BILAT, 10/07/2016, 15:11. FINDINGS: All stenosis calculations are based on NASCET criteria. Right side: Brachial blood pressure: Not obtained secondary to IV Common carotid artery peak systolic velocity: 77 cm/sec. Internal carotid artery peak systolic velocity: 80 cm/sec. Internal carotid artery end diastolic velocity: 14 cm/sec. External carotid artery peak systolic velocity: 154 cm/sec. ICA/CCA peak systolic ratio: 1.15. Man scale imaging description: Mild plaque at the bifurcation Percent internal carotid artery stenosis: Less than 50%. Vertebral artery: Flow direction is antegrade. Left side: Brachial blood pressure: 179/68 mm Hg. Common carotid artery peak systolic velocity: 90 cm/sec. Internal carotid artery peak systolic velocity: 90 cm/sec. Internal carotid artery end diastolic velocity: 18 cm/sec. External carotid artery peak systolic velocity: 183 cm/sec. ICA/CCA peak systolic ratio: 1.0. Man scale imaging description: Calcified plaque in the bifurcation and proximal ICA Percent internal carotid artery stenosis: 1.0. Vertebral artery: Flow direction is antegrade. IMPRESSION: Bilateral less than 50% ICA stenoses. Dictated by: Aguilar Palma M.D. on 01/05/2017 at 17:55 Approved by: Aguilar Palma M.D. on 01/05/2017 at 17:58
[2017-01-05 18:03] LABS: Magnesium 1.6 mg/dL (1.6-2.6)
[2017-01-05] MEDS: 0.9% Sodium Chloride 1,000 ML IV SCH (18:21)
--- NOTE | 2017-01-05 18:27 | NUR ---
ADMIT TO [facility] [place] Arrived to room 3010 and self transferred to hospital bed independently. Alert and oriented. Neurovascular checks within normal limits. C/o generalized weakness and mild nausea. c/o stiff neck pain to right side of neck, states present for 2 days now. Admit completed by patient and family. Med rec done by admit nurse. Reminded patient that she is NPO for now until swallow screen is completed. IV fluids running. director medical surgical on, sinus rhythm in 80's. Hourly monitoring continues.
[2017-01-05] MEDS ORDERED: Ipratropium 0.02% 0.5 mg/2.5 mL Inhalation Solution NEB ONE (20:25)
[2017-01-05] MEDS ORDERED: Fluticasone 100 mCg Inhaler INHALATION PRN (20:30)
[2017-01-05] MEDS: Ipratropium 0.02% 0.5 mg/2.5 mL Inhalation Solution NEB SCH (21:01)
[2017-01-05] MEDS: Insulin LISPRO 300 Unit/3 mL Inj SUBQ SCH ×2 (22:00→23:18)
[2017-01-05] MEDS: Famotidine Inj 20 MG in IV Premix 1 EACH IV SCH (22:59)
[2017-01-06] VITALS (14 sets, daily range): BP systolic 90–218; BP diastolic 50–92; PULSE 70–84; RESP 16–19; O2SAT 94–99
--- NOTE | 2017-01-06 06:38 | NUR ---
Activity Patient ambulating to BR with SBA. Patient states no pain. VSS. Neuro checks are unremarkable. Call light within reach. Care continues.
[2017-01-06 07:49] LABS: BASOPHILS % (AUTO) 0.5 % (0-3); EOSINOPHILS % (AUTO) 1.1 % (0-5); Mean Corpuscular Hemoglobin 27.6 pg (27.0-35.0); Mean Corpuscular Volume 86.7 fL (81-100); NEUTROPHILS % (AUTO) 63.8 % (40-74); Platelet Count 279 bil/L (150-400)
[2017-01-06 08:00] LABS: Magnesium 1.8 mg/dL (1.6-2.6)
[2017-01-06] MEDS: Insulin LISPRO 300 Unit/3 mL Inj SUBQ SCH ×4 (08:00→22:22)
[2017-01-06] MEDS: 0.9% Sodium Chloride 1,000 ML IV SCH ×2 (08:17→17:12)
[2017-01-06] MEDS: Fluticasone 0.05% 15 Spray/2 Gm 16 Gm Nasal Spray NASAL SCH (08:19)
[2017-01-06] MEDS: Ipratropium 0.02% 0.5 mg/2.5 mL Inhalation Solution NEB SCH ×4 (08:28→20:16)
[2017-01-06 08:50] LABS: INR 0.98 ratio
--- NOTE | 2017-01-06 09:41 | NUR ---
Evaluation completed. Please go to "Notes" then click on "Assessments and Notes" (bottom left corner of screen). Then select appropriate discipline tab on top of screen.
--- NOTE | 2017-01-06 10:30 | NUR ---
BP Pt BP at 218/84, HR 75. PRN Labetalol for BP 220/120. MD notified of VS. Repeated BP Q hour in 200's/80's. Continuing to monitor closely. Pt has no sx of CVA. Equal family service caseworker, no fascial droop, no slurred speech.
--- NOTE | 2017-01-06 11:00 | NUR ---
Pt off floor to MRI. rachel BARRETT removed. Addendum: 01/06/17 at 1404 by IAN ESCOBAR RN OFF FLOOR TO MRI AT 1200
--- NOTE | 2017-01-06 11:44 | DRSVH ---
[facility] [address] [place] [address] Echocardiogram Report Name: HORACE BERRY Date: Height: 61 in Hospital Exam Location: [facility] Weight: 148 lb Gender: Female BSA: 1.7 m2 : 1940 Age: 76 yrs BP: 181/76 mmHg Reason For Study: CVA Ordering Physician: Performed By: [facility] Interpretation Summary The ejection fraction is estimated to be 60-65%. There is moderate mitral annular calcification. There is trace tricuspid regurgitation. The right ventricular systolic pressure is estimated at 50 mmHg assuming a right atrial pressure of 3 mm Hg. Procedure: A two-dimensional transthoracic echocardiogram with color flow and Doppler was performed. The study quality was technically adequate. Comparison is made with the echocardiogram of 10-03-16. There has been no significant change since the previous study. The patient was in normal sinus rhythm during the exam. Left Ventricle: The left ventricle is normal in size, wall thickness, and systolic function without any focal wall motion abnormalities. The ejection fraction is estimated to be 60-65%. Assessment of diastolic parameters suggests a pseudonormalization pattern, consistent with elevated filling pressures. Right Ventricle: The right ventricle is normal in size, thickness and function. Atria: The left atrium is severely dilated. Right atrial size is normal. The interatrial septum is intact with no evidence for an atrial septal defect. Mitral Valve: The mitral valve leaflets appear mildly thickened, but open well. There is moderate mitral annular calcification. Aortic Valve: The aortic valve is trileaflet. The aortic valve opens well. No aortic regurgitation is present. Tricuspid Valve: The tricuspid valve leaflets are thin and pliable. There is trace tricuspid regurgitation. The right ventricular systolic pressure is estimated at 50 mmHg assuming a right atrial pressure of 3 mm Hg. Pulmonic Valve: The pulmonic valve is normal in structure and function. There is trace pulmonic regurgitation. Great Vessels: The aortic root is normal size. The dimensions of the ascending aorta are normal. The IVC is of normal diameter and collapses greater than 50% with a sniff. This suggests a low right atrial pressure of 3 mm Hg. Pericardium/ Pleura There is no pericardial effusion. There is no pleural effusion. MMode/2D Measurements & Calculations LVIDd: 5.5 cm LA dimension: 4.1 cm RA long axis Ao root diam LVIDs: 3.5 cm FS: 36.2 % LA A2 area: 23.3 cm RA area Aortic Jxn: 2.3 cm IVSd: 0.77 cm LA A4 area: 27.7 cm Ao Arch Diam (Prox LVPWd: 0.94 cm LA length (vol) : 14.1 cm Trans): 2.1 cm RA vol LA vol: 96.2 ml : 39.8 ml LA vol index RA : 23.9 mm/ RVDd major IVC diam: 1.5 cm : 4.9 cm LV casillas. diameter/BSA LV sys. diameter/BSA RVD1 (basal) RVD2 (mid): 2.9 cm (cm/m^2): 3.3 (cm/m^2): 2.1 Doppler Measurements & Calculations Ao V2 max MV E max cornelio MV E/A: 1.0 TR max cornelio : 146.3 cm/sec : 132.7 cm/sec Med Peak E' Cornelio : 342.2 cm/sec Ao max PG MV A max cornelio TR max PG : 8.6 mmHg : 128.3 cm/sec E/E' med: 42.2 : 46.8 mmHg Ao mean PG MV P1/2t: 72.9 msec Lat Peak E' Cornelio PA V2 max : 4.1 mmHg : 87.0 cm/sec E/E' lat: 26.6 PA mean PG E/e' average: 34.4 MV A dur: 0.14 sec PA Accel Time : 0.17 sec MV dec time MV P1/2t max cornelio Ao V2 mean PA V2 mean : 0.24 sec : 93.0 cm/sec : 61.5 cm/sec MVA(P1/2t): 3.0 cm2 Ao V2 VTI: 36.6 cm Electronically signed by: Clay De La Torre on Reading Physician:01/06/2017 11:43 AM
--- NOTE | 2017-01-06 11:47 | NUR ---
Evaluation completed. Please go to "Notes" then click on "Assessments and Notes" (bottom left corner of screen). Then select appropriate discipline tab on top of screen.
[2017-01-06] MEDS: Famotidine Inj 20 MG in IV Premix 1 EACH IV SCH ×2 (12:56→22:24)
--- NOTE | 2017-01-06 13:24 | DRSVH ---
PROCEDURE: MRI BRAIN WITHOUT CONTRAST ([id number]) INDICATIONS: TIA TECHNIQUE: Non-contrast axial T1 spin echo, axial T2 fast spin echo, sagittal and axial FLAIR, coronal T2 fast s pin echo, axial gradient echo, axial diffusion and ADC through the brain. COMPARISON: None. FINDINGS: Image quality: Excellent. CSF spaces: Ventricles appear symmetric in size and shape. Basal cisterns are patent. No extra-axi al fluid collections. Brain: No intracranial bleeds or mass effects. There is cerebral volume loss for age. There are pe riventricular and deep white matter chronic small vessel ischemic changes. Brainstem appears normal. Diffusion-weighted images show no acute ischemic insults. No chronic ischemic insults. Normal int ravascular flow voids are present. Skull and face: Calvarial bone marrow is normal in signal. Orbits are normal. Sinuses: A small amount of fluid is present within the left maxillary sinus. Sinuses and mastoids ar e otherwise clear. IMPRESSION: 1. No acute intracranial findings. Specifically, no acute or subacute infarct. 2. Mild findings likely associated with chronic microvascular ischemic changes. Dictated by: Jami Dean M.D. on 01/06/2017 at 13:04 Approved by: Jami Dean M.D. on 01/06/2017 at 13:23
[2017-01-06] MEDS ORDERED: CLOP75TA28 PO (14:00)
--- NOTE | 2017-01-06 14:05 | PCM.DIMED ---
Discharge Instructions Date of Service Jan 06, 2017 Dates of Hospitalization Jan 05, 2017 at 17:02 Discharge Diagnosis Discharge Diagnosis 1. Acute fall and transient altered mental status, resolved prior to admission. Unclear exact etiology but possibly due to acute transient ischemic attack (TIA). - workup including brain CT and MRI, echocardiogram, and carotid artery ultrasound all without any acute findings. 2. Essential Hypertension 3. Hyperlipidemia 4. Diabetes Mellitus, Type II 5. Asthma. stable. 6. Chronic kidney disease. stable. Diet Low fat, Low Sodium, Heart Healthy, Diabetic Activity No restrictions Call your provider Fever or Chills, Shortness of breath, Bleeding, Chest pain, Vomitting, Excessive diarrhea, Weakness (unilateral) Patient Instructions Seek immediate medical attention if any new or worsening signs or symptoms occur. Follow-up plan 1. Followup with primary care provider in 3-7 days Follow-up Provider: Jovana Estrada MD, Masoud Jan 06, 2017 14:05
[2017-01-06] MEDS ORDERED: Labetalol 5 mg/mL 4 mL Inj IVPUSH ONE (14:50)
[2017-01-06] MEDS ORDERED: hydrALAZINE 20 mg/mL Inj IV ONE (15:40)
--- NOTE | 2017-01-06 15:46 | PCM.DC.MED ---
Discharge Summary Date of Service Jan 06, 2017 Dates of Hospitalization Date of Hospital Admission Jan 05, 2017 at 17:02 Date of Discharge: Jan 06, 2017 Providers: Admitting Physician: Blake Evans MD Primary Care Physician: Jovana Estrada MD Attending Physician: Blake Evans MD Diagnosis at Time of Discharge Diagnosis at Time of Discharge 1. Acute fall and transient altered mental status, resolved prior to admission. Unclear exact etiology but possibly due to acute transient ischemic attack (TIA). - workup including brain CT and MRI, echocardiogram, and carotid artery ultrasound all without any acute findings. 2. Essential Hypertension 3. Hyperlipidemia 4. Diabetes Mellitus, Type II 5. Asthma. stable. 6. Chronic kidney disease. stable. Procedures XRay, CTs & MRIs Date of Service: 01/05/17 1413 PROCEDURE: CT BRAIN WITHOUT CONTRAST ([id number]) IMPRESSION: 1. No acute intracranial abnormality. Dictated by: Alix Polo M.D. on 01/05/2017 at 15:53 Approved by: Alix Polo M.D. on 01/05/2017 at 15:54 Date of Service: 01/06/17 0800 PROCEDURE: MRI BRAIN WITHOUT CONTRAST ([id number]) IMPRESSION: 1. No acute intracranial findings. Specifically, no acute or subacute infarct. 2. Mild findings likely associated with chronic microvascular ischemic changes. Dictated by: Jami Dean M.D. on 01/06/2017 at 13:04 Approved by: Jami Dean M.D. on 01/06/2017 at 13:23 Cardiac Echo Impression Date of Service: 01/06/17 0800 Echocardiogram Report Interpretation Summary The ejection fraction is estimated to be 60-65%. There is moderate mitral annular calcification. There is trace tricuspid regurgitation. The right ventricular systolic pressure is estimated at 50 mmHg assuming a right atrial pressure of 3 mm Hg. Electronically signed by: Clay De La Torre on Reading Physician:01/06/2017 11:43 AM Other Diagnostics Date of Service: 01/05/17 1612 PROCEDURE: US BILATERAL DUPLEX DOPPLER IMAGING OF THE CAROTIDS ([id number]) IMPRESSION: Bilateral less than 50% ICA stenoses. Dictated by: Aguilar Palma M.D. on 01/05/2017 at 17:55 Approved by: Aguilar Palma M.D. on 01/05/2017 at 17:58 Brief History As noted in H&P by Dr. Evans: Patient is a 76 year old female with a past medical history of Essential Hypertension, Diabetes Mellitus Type II, Hyperlipidemia, BPV, Asthma, and GERD. She presents to the ER at [facility] after experiencing a fall earlier today. Pt does not completely remember the fall, and therefore hx is taken from her son who witnessed the event. Pts son reports hearing his mother fall in the living room. When he ran into the room, he found her laying on her left side clutching her walker. He states she had not lost consciousness, but was unable to stand as bilateral legs seemed to be very weak. Pts son lifted her up and sat her on the couch. He reports his mother seemed very confused and was able to respond to his verbal commands. She also appeared to have left sided facial droop and appeared to drool out of the left side of her mouth. Pt then suddenly became nauseated and began to vomit. Shortly after vomiting, pts mentation returned to baseline and her facial droop resolved. Pt denies any preceding chest pain, shortness of breath, visual changes, palpitations, and headache. Pt denies any weakness in her upper and lower extremities at present. Pt is currently taking Aspirin daily. No other complaints or concerns at this time. Hospital Course 1. Acute fall and transient altered mental status, resolved prior to admission. Unclear exact etiology but possibly due to acute transient ischemic attack (TIA). - workup including brain CT and MRI, echocardiogram, and carotid artery ultrasound all without any acute findings. 2. Essential Hypertension - Blood pressure was elevated on day of d/c with SBP about 200 after her BP meds were placed on hold on admission. She received a dose of IV Labetalol, and Amlodipine 5mg po x 1 prior to discharge. Her BP has improved to 171/70 and plan is to resume home BP meds upon discharge home. 3. Hyperlipidemia - c/w home meds 4. Diabetes Mellitus, Type II - c/w home meds and f/u w/ PCP for further management 5. Asthma. stable. 6. Chronic kidney disease. stable. Exam Vital Signs (Last) Date Time Temp Pulse Resp B/P Pulse Ox O2 Delivery O2 Flow Rate FiO2 01/06/17 15:20 36.7 71 16 206/92 99 Room Air Test 01/05/17 14:00 01/05/17 16:42 01/05/17 17:05 01/06/17 06:05 Total Bilirubin 0.3mg/dL (0.0-1.2) Aspartate Amino Transf (AST/SGOT) 31U/L (0-50) Alanine Aminotransferase (ALT/SGPT) 31U/L (0-32) Alkaline Phosphatase 165U/L (25-165) Total Protein 5.9g/dL (6.4-8.4) Albumin 2.9g/dL (3.4-5.0) Hold [place] Top Tube Received (Received) Troponin T < 0.010ug/L (0.0-0.011) Urine Color Yellow (YELLOW) Urine Appearance Clear (CLEAR,HAZY) Urine pH 7.5 (5.0-8.0) Urine Specific [place] 1.020 (1.003-1.035) Urine Protein Negativemg/dL (NEG,TRACE) Urine Glucose (UA) Negativemg/dL (NEGATIVE) Urine Ketones Negativemg/dL (NEGATIVE) Urine Occult Blood Moderate (NEGATIVE) Urine Nitrite Negative (NEGATIVE) Urine Bilirubin Negative (NEGATIVE) Urine Urobilinogen Normalmg/dL (NORMAL) Urine Leukocyte Esterase Negative (NEGATIVE) Urine RBC 3-10/hpf (0-2) Urine WBC 0-5/hpf (0-5) Urine Epithelial Cells Few/hpf (NONE-MOD) Urine Crystals None seen (NONE SEEN) Urine Bacteria Few/hpf (NONE-FEW) Urine Hyaline Casts None/lpf (NONE) Urine Granular Casts None seen (NONE SEEN) Urine Waxy Casts None seen (NONE SEEN) Urine Red Blood Cell Casts None seen (NONE SEEN) Urine White Blood Cell Casts None seen (NONE SEEN) Urine Mucus None seen (None Seen) Urine Trichomonas None seen (NONE SEEN) Urine Yeast None (NONE SEEN) Urinalysis Comment None Urine Culture Reflexed Not indicated White Blood Count 8.5th/mm3 (3.8-10.1) Red Blood Count 3.84mil/mm3 (3.90-5.20) Hemoglobin 10.6g/dL (12.0-15.6) Hematocrit 33.3% (35.0-46.0) Mean Corpuscular Volume 86.7fL (81-100) Mean Corpuscular Hemoglobin 27.6pg (27.0-35.0) Mean Corpuscular Hemoglobin Concent 31.8% (32.0-37.0) Red Cell Distribution Width 14.6% (12.3-15.4) Platelet Count 279bil/L (150-400) Neutrophils (%) (Auto) 63.8% (40-74) Lymphocytes (%) (Auto) 24.1% (14-46) Monocytes (%) (Auto) 9.0% (4-12) Eosinophils (%) (Auto) 1.1% (0-5) Basophils (%) (Auto) 0.5% (0-3) Sodium Level 137mEq/L (134-144) Potassium Level 4.6mEq/L (3.5-5.2) Chloride Level 104mEq/L (97-108) Carbon Dioxide Level 20mmol/L (18-29) Blood Urea Nitrogen 36mg/dL (8-27) Creatinine 1.40mg/dL (0.57-1.00) Estimat Glomerular Filtration Rate 53mL/min (>59) Glucose Level 139mg/dL (60-99) Calcium Level 9.3mg/dL (8.5-10.1) Magnesium Level 1.8mg/dL (1.6-2.6) Triglycerides Level 273mg/dL (0-149) Cholesterol Level 164mg/dL (100-199) LDL Cholesterol, Calculated 56.400mg/dL (0-99) VLDL Cholesterol 54.600mg/dL HDL Cholesterol 53mg/dL (>39) Cholesterol/HDL Ratio 3.09 (0.0-4.4) Test 01/06/17 08:25 Prothrombin Time 10.5sec (8.1-12.5) Prothromb Time International Ratio 0.98ratio Activated Partial Thromboplast Time 22.2sec (22.8-33.0) Discharge Medications Discharge Medications Amlodipine (Amlodipine) 5 Mg Tablet 5 MG PO DAILY (Reported) Aspirin (Aspirin) 81 Mg Tablet 81 MG PO DAILY Prescribed by: Parag HUNT MD Atorvastatin (Lipitor) 10 Mg Tab 10 MG PO HS (Reported) Cholecalciferol (Vitamin D3) (Vitamin D) 1,000 Unit Tablet 2,000 UNIT PO DAILY Prescribed by: YOMI RODRIGUEZ MD Clopidogrel (Clopidogrel) 75 Mg Tablet 75 MG PO DAILY Prescribed by: GERTRUDE JACOB MD Ferrous Sulfate (Ferrous Sulfate) 324 Mg Tablet.dr 324 MG PO DAILY (Reported) Gabapentin (Gabapentin) 100 Mg Capsule 100 MG PO HS (Reported) Insulin Glargine (Lantus U100 Insulin Vial) 100 Unit/Ml Vial 15-20 UNIT SUBQ BID (Reported) Ipratropium [place] (Atrovent HFA) 200 Puff/12.9 Gm Inhaler 2 PUFF INH QID ( Reported) Labetalol (Labetalol) 300 Mg Tablet 300 MG PO TID (Reported) Montelukast (Montelukast) 10 Mg Tablet 10 MG PO HS (Reported) Omeprazole (Omeprazole) 20 Mg Capsule.dr 20 MG PO BID (Reported) As needed Albuterol HFA (Proair HFA) 8.5 Gm Hfa.aer.ad 2 PUFFS INHALATION Q4H PRN PRN For Shortness of Breath (Reported) Fluticasone Propionate (Fluticasone Propionate Nasal) 16 Gm [place].susp 2 SPRAY NS DAILY PRN PRN allergies (Reported) Loperamide (Loperamide) 2 Mg Capsule 2 MG PO Q4H PRN PRN For Diarrhea or Loose Stool (Reported) Ondansetron ODT (Ondansetron ODT) 8 Mg Tab.rapdis 8 MG SL QID PRN PRN For Nausea (Reported) Followup Plan Disposition: Home Follow-up plan 1. Followup with primary care provider in 3-7 days Discharge Diet: Low fat, Low Sodium, Heart Healthy, Diabetic Discharge Activity: No restrictions Patient Instructions Seek immediate medical attention if any new or worsening signs or symptoms occur. Follow-up Provider: Jovana Estrada MD Time spent 40 min copies to: Jovana Estrada MD, Masoud Jan 06, 2017 15:46
--- NOTE | 2017-01-06 19:34 | NUR ---
BP Pt BP in 200s/80s. Given order for ONCE dose IV Labetalol. BP dropped to 190s/80s. MD Notified. New orders for IV Hydralazine and PO Amlodipine. BP dropped to 171/80. Check prior to Discharge BP at 90/50. MD paged, child therapist Hospitalist paged. Discharge postponed. Continuing with care, NOC shift aware and following up.
[2017-01-07] VITALS (14 sets, daily range): BP systolic 76–182; BP diastolic 49–80; PULSE 90–122; RESP 16–18; O2SAT 96–100
--- NOTE | 2017-01-07 01:43 | NUR ---
HTN Pt's Blood pressure returned to systolic of 179. She has no complaints. Equal strength throughout her extremities save she mobilizes with a walker. Denies pain. Care ongoing
[2017-01-07] MEDS: 0.9% Sodium Chloride 1,000 ML IV SCH (05:42)
[2017-01-07] MEDS: Ipratropium 0.02% 0.5 mg/2.5 mL Inhalation Solution NEB SCH ×4 (07:56→20:48)
[2017-01-07] MEDS: Famotidine Inj 20 MG in IV Premix 1 EACH IV SCH ×2 (08:30→20:34)
[2017-01-07] MEDS ORDERED: LABETALOL 300 MG PO SCH (08:30)
[2017-01-07] MEDS: Insulin LISPRO 300 Unit/3 mL Inj SUBQ SCH ×4 (10:11→21:54)
[2017-01-07] MEDS: LABETALOL PO SCH ×6 (10:12→20:35)
[2017-01-07] MEDS: Fluticasone 0.05% 15 Spray/2 Gm 16 Gm Nasal Spray NASAL SCH (10:12)
--- NOTE | 2017-01-07 10:14 | NUR ---
Social Work: Initial Assessment / Readiness for d/c Data: Pt is a 76 y/o female admitted for syncope, CVA r/o. Pt's PCP is Dr Estrada, pt's insurance is [employer]. EMR reviewed. Pt discussed in rounds. MD states pt likely to d/c today. PT recommending HH at this time. NEEDLE FELT MAKING MACHINE OPERATOR met with pt at bedside, role explained. Pt states that she lives in [place] with her spouse and son. She states she does not have AD/DPOA and declined information offered by NEEDLE FELT MAKING MACHINE OPERATOR. Pt states she has a walker and cane she uses at home, no hx of SNF, pt states she has HH, unsure of which company. Pt states she has no LTC or VA benefits, and is not a caregiver for anyone. NEEDLE FELT MAKING MACHINE OPERATOR checked pt's last visit and [facility] was referred at that time. NEEDLE FELT MAKING MACHINE OPERATOR called [facility], confirmed they are open with pt. Access given, no need for F2F. NEEDLE FELT MAKING MACHINE OPERATOR will continue to follow. Assessment: Pt who is independent at baseline. Plan: Pt will d/c home via POV with family, likely today per MD, with resume [facility]. NEEDLE FELT MAKING MACHINE OPERATOR will continue to follow. RAVINDER Hoover Addendum: 01/07/17 at 1023 by NEFTALI NGUYEN Amended: Links added.
--- NOTE | 2017-01-07 11:13 | NUR ---
Social Work: Discharge Data: Pt is on day 2 of hospitalization. EMR reviewed. D/C orders are in. WAREHOUSE INVENTORY CLERK notified [facility]. No further d/c planning needs at this time. WAREHOUSE INVENTORY CLERK will continue to follow if needs arise. Assessment: Pt who is independent at baseline. Plan: Pt will d/c home via POV with family with resume HH with [facility], PT. No further d/c planning needs at this time. WAREHOUSE INVENTORY CLERK will continue to follow if needs arise. RAVINDER Hoover
--- NOTE | 2017-01-07 15:05 | NUR ---
Dizziness/BP: According to family, patient had episode of unsteady while standing and not responding to questions while getting dressed. Patient states she remembers episode and felt dizzy. Neuro check negative, BP 108/65. MD notified. Requested orthostatic BP. Ortho BP 118/70 lying, 93/59 sitting, 76/49 stand. MD notified. Received orders to cancel discharge, restart IV, place on telemetry. Tele ST low 100s per telegraph operator.
--- NOTE | 2017-01-07 16:38 | PCM.PNMED ---
Subjective Date of Service Jan 07, 2017 Subjective pt reported unsteadiness and weakness yesterday prior to d/c and again today Exam Vital Signs Vital Sign - Last Date Time Temp Pulse Resp B/P Pulse Ox O2 Delivery O2 Flow Rate FiO2 01/07/17 15:28 104 130/72 100 Room Air 01/07/17 13:55 36.6 18 Intake and Output 01/06/17 01/06/17 01/07/17 Cumulative From/Thru 15:00 23:00 07:00 01/05/17 13:30 - 01/07/17 06:15 Intake Total 200 ml 300 ml 1814 ml Output Total 800 ml 2950 ml Balance 200 ml -500 ml -1136 ml Intake Oral 200 ml 300 ml 900 ml IV Total 914 ml Output Urine Total 800 ml 2950 ml # Voids 2 2 General: Alert, Cooperative, No Acute Distress Head: Normal Eyes: Scleral Anicteric Nose: Mucous Membr Moist/Babbie Mouth: Mucous Membr Moist/Babbie Neck: Supple Chest & Lungs: Chest Wall Normal, Clear to auscultation & percussion Cardiovascular: Regular Rate/Rhythm Abdomen: Non-tender, Non-distended, Normoactive bowel tones, Soft Extremities: No cyanosis/clubbing/edma bilat Neurological: Grossly Neurologically Intact, Normal Speech IVs and Medications Medications Reviewed: Medications were reviewed in detail Lab and Diagnostics Result Diagram: 01/06/17 0605 01/06/17 0605 X-Rays, CTs and MRIs Date of Service: 01/05/17 1413 PROCEDURE: CT BRAIN WITHOUT CONTRAST ([id number]) IMPRESSION: 1. No acute intracranial abnormality. Dictated by: Alix Polo M.D. on 01/05/2017 at 15:53 Approved by: Alix Polo M.D. on 01/05/2017 at 15:54 Date of Service: 01/06/17 0800 PROCEDURE: MRI BRAIN WITHOUT CONTRAST ([id number]) IMPRESSION: 1. No acute intracranial findings. Specifically, no acute or subacute infarct. 2. Mild findings likely associated with chronic microvascular ischemic changes. Dictated by: Jami Dean M.D. on 01/06/2017 at 13:04 Approved by: Jami Dean M.D. on 01/06/2017 at 13:23 Cardiac Echo Impressions Date of Service: 01/06/17 0800 Echocardiogram Report Interpretation Summary The ejection fraction is estimated to be 60-65%. There is moderate mitral annular calcification. There is trace tricuspid regurgitation. The right ventricular systolic pressure is estimated at 50 mmHg assuming a right atrial pressure of 3 mm Hg. Electronically signed by: Clay De La Torre on Reading Physician:01/06/2017 11:43 AM Additional Diagnostics Date of Service: 01/05/17 1612 PROCEDURE: US BILATERAL DUPLEX DOPPLER IMAGING OF THE CAROTIDS ([id number]) IMPRESSION: Bilateral less than 50% ICA stenoses. Dictated by: Aguilar Palma M.D. on 01/05/2017 at 17:55 Approved by: Aguilar Palma M.D. on 01/05/2017 at 17:58 Assessment & Plan 76 year old female with a past medical history of Essential Hypertension, Diabetes Mellitus Type II, Hyperlipidemia, BPV, Asthma, and GERD. She presents to the ER at [facility] after experiencing a fall earlier today. Pt does not completely remember the fall, and therefore hx is taken from her son who witnessed the event. Pts son reports hearing his mother fall in the living room. When he ran into the room, he found her laying on her left side clutching her walker. # Acute fall and transient altered mental status, resolved prior to admission. Unclear exact etiology but possibly due to acute transient ischemic attack (TIA) . - workup including brain CT and MRI, echocardiogram, and carotid artery ultrasound all without any acute findings. - workup 01/07 suggestive of underlying orthostatic hypotension, likely present on admission as well # Essential Hypertension with associated orthostatic hypotension. poa. - d/c was cancelled on 01/06 and again on 01/07 due to poor BP control with patient demonstrating significant hypertension at rest and orthostatic hypotension with standing and ambulation - resume home BP meds today and c/w physical therapy eval # Hyperlipidemia - c/w home meds # Diabetes Mellitus, Type II - c/w home meds and f/u w/ PCP for further management # Asthma. stable. # Chronic kidney disease. stable. Dispo: 1-2 days pending stabilizing BP VTE Mechanical Devices: Intermittant Pneumatic CD Time spent 35 min Ridge Cruz Jan 07, 2017 16:38
[2017-01-07] MEDS ORDERED: 0.9% Sodium Chloride 1,000 ML IV ONE (16:40)
[2017-01-08] VITALS (9 sets, daily range): BP systolic 109–176; BP diastolic 56–82; PULSE 81–115; RESP 18; O2SAT 95–98
--- NOTE | 2017-01-08 05:52 | NUR ---
activity pt up to the bathroom SBA with FWW multiple times this shift. she denies dizziness and was steady on her feet. scheduled BP meds given and pt has remained hypertensive. she has had no complaints, uneventful night. will continue to monitor.
[2017-01-08] MEDS: Famotidine Inj 20 MG in IV Premix 1 EACH IV SCH (08:02)
[2017-01-08] MEDS: LABETALOL PO SCH ×2 (08:02)
[2017-01-08] MEDS: Insulin LISPRO 300 Unit/3 mL Inj SUBQ SCH ×2 (08:03→11:36)
[2017-01-08 08:43] LABS: Mean Corpuscular Hemoglobin 27.6 pg (27.0-35.0); Mean Corpuscular Volume 87.5 fL (81-100)
[2017-01-08] MEDS: Ipratropium 0.02% 0.5 mg/2.5 mL Inhalation Solution NEB SCH (08:51)
[2017-01-08] MEDS: Fluticasone 0.05% 15 Spray/2 Gm 16 Gm Nasal Spray NASAL SCH (09:57)
--- NOTE | 2017-01-08 11:37 | NUR ---
Social Work: Discharge Data: Pt is on day 3 of hospitalization. EMR reviewed. D/C orders are in. Pt did not d/c yesterday due to blood pressure, per MD. JUTE BAG SEWER notified [facility]. No further d/c planning needs at this time. JUTE BAG SEWER will continue to follow if needs arise. Assessment: Pt who is independent at baseline. Plan: Pt will d/c home via POV with family with resume HH with [facility], PT. No further d/c planning needs at this time. JUTE BAG SEWER will continue to follow if needs arise. RAVINDER Hoover
--- NOTE | 2017-01-08 12:15 | NUR ---
discharge paperwork reviewed with pt and family-no questions at this time. belongings are bagged and given to pt, transported via W/C by [facility]. pt denies any distress/or pain and agrees to monitor her BP at home to prevent syncope episodes.
--- NOTE | 2017-01-08 16:50 | PCM.DC.MED ---
Discharge Summary Date of Service Jan 08, 2017 Dates of Hospitalization Date of Hospital Admission Jan 05, 2017 at 17:02 Date of Discharge: Jan 08, 2017 Providers: Admitting Physician: Blake Evans MD Primary Care Physician: Jovana Estrada MD Attending Physician: Blake Evans MD Diagnosis at Time of Discharge Diagnosis at Time of Discharge 1. Acute fall and transient altered mental status, resolved prior to admission. Unclear exact etiology but possibly due to acute transient ischemic attack (TIA). - workup including brain CT and MRI, echocardiogram, and carotid artery ultrasound all without any acute findings. 2. Essential Hypertension 3. Hyperlipidemia 4. Diabetes Mellitus, Type II 5. Asthma. stable. 6. Chronic kidney disease. stable. 7. Orthostatic hypotension Procedures XRay, CTs & MRIs Date of Service: 01/05/17 1413 PROCEDURE: CT BRAIN WITHOUT CONTRAST ([id number]) IMPRESSION: 1. No acute intracranial abnormality. Dictated by: Alix Polo M.D. on 01/05/2017 at 15:53 Approved by: Alix Polo M.D. on 01/05/2017 at 15:54 Date of Service: 01/06/17 0800 PROCEDURE: MRI BRAIN WITHOUT CONTRAST ([id number]) IMPRESSION: 1. No acute intracranial findings. Specifically, no acute or subacute infarct. 2. Mild findings likely associated with chronic microvascular ischemic changes. Dictated by: Jami Dean M.D. on 01/06/2017 at 13:04 Approved by: Jami Dean M.D. on 01/06/2017 at 13:23 Cardiac Echo Impression Date of Service: 01/06/17 0800 Echocardiogram Report Interpretation Summary The ejection fraction is estimated to be 60-65%. There is moderate mitral annular calcification. There is trace tricuspid regurgitation. The right ventricular systolic pressure is estimated at 50 mmHg assuming a right atrial pressure of 3 mm Hg. Electronically signed by: Clay De La Torre on Reading Physician:01/06/2017 11:43 AM Other Diagnostics Date of Service: 01/05/17 1612 PROCEDURE: US BILATERAL DUPLEX DOPPLER IMAGING OF THE CAROTIDS ([id number]) IMPRESSION: Bilateral less than 50% ICA stenoses. Dictated by: Aguilar Palma M.D. on 01/05/2017 at 17:55 Approved by: Aguilar Palma M.D. on 01/05/2017 at 17:58 Brief History As noted in H&P by Dr. Evans: Patient is a 76 year old female with a past medical history of Essential Hypertension, Diabetes Mellitus Type II, Hyperlipidemia, BPV, Asthma, and GERD. She presents to the ER at [facility] after experiencing a fall earlier today. Pt does not completely remember the fall, and therefore hx is taken from her son who witnessed the event. Pts son reports hearing his mother fall in the living room. When he ran into the room, he found her laying on her left side clutching her walker. He states she had not lost consciousness, but was unable to stand as bilateral legs seemed to be very weak. Pts son lifted her up and sat her on the couch. He reports his mother seemed very confused and was able to respond to his verbal commands. She also appeared to have left sided facial droop and appeared to drool out of the left side of her mouth. Pt then suddenly became nauseated and began to vomit. Shortly after vomiting, pts mentation returned to baseline and her facial droop resolved. Pt denies any preceding chest pain, shortness of breath, visual changes, palpitations, and headache. Pt denies any weakness in her upper and lower extremities at present. Pt is currently taking Aspirin daily. No other complaints or concerns at this time. Hospital Course # Acute fall and transient altered mental status, resolved prior to admission. Unclear exact etiology but possibly due to acute transient ischemic attack (TIA) . - workup including brain CT and MRI, echocardiogram, and carotid artery ultrasound all without any acute findings. - workup 01/07 suggestive of underlying orthostatic hypotension, likely present on admission as well - She is being discharged on additional Plavix at this time with presumption that her presentation may have been partially due to TIA. further f/u and adjustment of her meds will be deferred to her PCP as outpatient. # Essential Hypertension with associated orthostatic hypotension. poa. - d/c was cancelled on 01/06 and again on 01/07 due to poor BP control with patient demonstrating significant hypertension at rest and orthostatic hypotension with standing and ambulation - resumed home BP meds on 01/07 - she was evaluated by PT on 01/08 who noted patient able to tolerate the ambulation and PT exercises without any reported lightheadedness but towards the end of PT she was noted to be hypotensive while standing which resolved fairly quickly after sitting down in bed. It is felt that patient's orthostatic hypotension may be partially due to generalized deconditioning that may improve with further home PT. Given her h/o of DM she may also have some underlying autonomic dysfunction. I attempted to set her up with outpatient neurology f/u but unfortunately the earliest available appointment with out neurologist was in May 2017. Instead she has been setup with f/u with PCP office next week with hope of further outpatient referral and setup with neurology to be considered by the PCP. # Hyperlipidemia - c/w home meds # Diabetes Mellitus, Type II - c/w home meds and f/u w/ PCP for further management # Asthma. stable. # Chronic kidney disease. stable. by day of d/c lungs CTA bilat. CV: RRR. she denies any lightheadedness or discomfort and requesting d/c home. Exam Vital Signs (Last) Date Time Temp Pulse Resp B/P Pulse Ox O2 Delivery O2 Flow Rate FiO2 01/08/17 11:06 159/69 01/08/17 11:05 Room Air 01/08/17 10:21 36.7 81 18 95 Test 01/05/17 14:00 01/05/17 16:42 01/05/17 17:05 01/06/17 06:05 Total Bilirubin 0.3mg/dL (0.0-1.2) Aspartate Amino Transf (AST/SGOT) 31U/L (0-50) Alanine Aminotransferase (ALT/SGPT) 31U/L (0-32) Alkaline Phosphatase 165U/L (25-165) Total Protein 5.9g/dL (6.4-8.4) Albumin 2.9g/dL (3.4-5.0) Hold [place] Top Tube Received (Received) Troponin T < 0.010ug/L (0.0-0.011) Urine Color Yellow (YELLOW) Urine Appearance Clear (CLEAR,HAZY) Urine pH 7.5 (5.0-8.0) Urine Specific [place] 1.020 (1.003-1.035) Urine Protein Negativemg/dL (NEG,TRACE) Urine Glucose (UA) Negativemg/dL (NEGATIVE) Urine Ketones Negativemg/dL (NEGATIVE) Urine Occult Blood Moderate (NEGATIVE) Urine Nitrite Negative (NEGATIVE) Urine Bilirubin Negative (NEGATIVE) Urine Urobilinogen Normalmg/dL (NORMAL) Urine Leukocyte Esterase Negative (NEGATIVE) Urine RBC 3-10/hpf (0-2) Urine WBC 0-5/hpf (0-5) Urine Epithelial Cells Few/hpf (NONE-MOD) Urine Crystals None seen (NONE SEEN) Urine Bacteria Few/hpf (NONE-FEW) Urine Hyaline Casts None/lpf (NONE) Urine Granular Casts None seen (NONE SEEN) Urine Waxy Casts None seen (NONE SEEN) Urine Red Blood Cell Casts None seen (NONE SEEN) Urine White Blood Cell Casts None seen (NONE SEEN) Urine Mucus None seen (None Seen) Urine Trichomonas None seen (NONE SEEN) Urine Yeast None (NONE SEEN) Urinalysis Comment None Urine Culture Reflexed Not indicated Neutrophils (%) (Auto) 63.8% (40-74) Lymphocytes (%) (Auto) 24.1% (14-46) Monocytes (%) (Auto) 9.0% (4-12) Eosinophils (%) (Auto) 1.1% (0-5) Basophils (%) (Auto) 0.5% (0-3) Magnesium Level 1.8mg/dL (1.6-2.6) Triglycerides Level 273mg/dL (0-149) Cholesterol Level 164mg/dL (100-199) LDL Cholesterol, Calculated 56.400mg/dL (0-99) VLDL Cholesterol 54.600mg/dL HDL Cholesterol 53mg/dL (>39) Cholesterol/HDL Ratio 3.09 (0.0-4.4) Test 01/06/17 08:25 01/08/17 08:20 Prothrombin Time 10.5sec (8.1-12.5) Prothromb Time International Ratio 0.98ratio Activated Partial Thromboplast Time 22.2sec (22.8-33.0) White Blood Count 9.2th/mm3 (3.8-10.1) Red Blood Count 3.84mil/mm3 (3.90-5.20) Hemoglobin 10.6g/dL (12.0-15.6) Hematocrit 33.6% (35.0-46.0) Mean Corpuscular Volume 87.5fL (81-100) Mean Corpuscular Hemoglobin 27.6pg (27.0-35.0) Mean Corpuscular Hemoglobin Concent 31.5% (32.0-37.0) Red Cell Distribution Width 14.6% (12.3-15.4) Platelet Count 242bil/L (150-400) Sodium Level 134mEq/L (134-144) Potassium Level 5.0mEq/L (3.5-5.2) Chloride Level 103mEq/L (97-108) Carbon Dioxide Level 20mmol/L (18-29) Blood Urea Nitrogen 40mg/dL (8-27) Creatinine 1.50mg/dL (0.57-1.00) Estimat Glomerular Filtration Rate 49mL/min (>59) Glucose Level 301mg/dL (60-99) Calcium Level 8.9mg/dL (8.5-10.1) Thyroid Stimulating Hormone (TSH) 2.150uIU/mL (0.450-4.500) Free Thyroxine 1.08ng/dL (0.82-1.77) Discharge Medications Discharge Medications Amlodipine (Amlodipine) 5 Mg Tablet 5 MG PO DAILY (Reported) Aspirin (Aspirin) 81 Mg Tablet 81 MG PO DAILY Prescribed by: Parag HUNT MD Atorvastatin (Lipitor) 10 Mg Tab 10 MG PO HS (Reported) Cholecalciferol (Vitamin D3) (Vitamin D) 1,000 Unit Tablet 2,000 UNIT PO DAILY Prescribed by: YOMI RODRIGUEZ MD Clopidogrel (Clopidogrel) 75 Mg Tablet 75 MG PO DAILY Prescribed by: GERTRUDE JACOB MD Ferrous Sulfate (Ferrous Sulfate) 324 Mg Tablet.dr 324 MG PO DAILY (Reported) Gabapentin (Gabapentin) 100 Mg Capsule 100 MG PO HS (Reported) Insulin Glargine (Lantus U100 Insulin Vial) 100 Unit/Ml Vial 15-20 UNIT SUBQ BID (Reported) Ipratropium [place] (Atrovent HFA) 200 Puff/12.9 Gm Inhaler 2 PUFF INH QID ( Reported) Labetalol (Labetalol) 300 Mg Tablet 300 MG PO TID (Reported) Montelukast (Montelukast) 10 Mg Tablet 10 MG PO HS (Reported) Omeprazole (Omeprazole) 20 Mg Capsule.dr 20 MG PO BID (Reported) As needed Albuterol HFA (Proair HFA) 8.5 Gm Hfa.aer.ad 2 PUFFS INHALATION Q4H PRN PRN For Shortness of Breath (Reported) Fluticasone Propionate (Fluticasone Propionate Nasal) 16 Gm [place].susp 2 SPRAY NS DAILY PRN PRN allergies (Reported) Loperamide (Loperamide) 2 Mg Capsule 2 MG PO Q4H PRN PRN For Diarrhea or Loose Stool (Reported) Ondansetron ODT (Ondansetron ODT) 8 Mg Tab.rapdis 8 MG SL QID PRN PRN For Nausea (Reported) Followup Plan Disposition: Home with Follow-up plan 1. Followup with primary care provider in 3-7 days Discharge Diet: Low fat, Low Sodium, Heart Healthy, Diabetic Discharge Activity: No restrictions Patient Instructions Seek immediate medical attention if any new or worsening signs or symptoms occur. Follow-up Provider: Jovana Estrada MD Time spent 35 min copies to: Jovana Estrada MD, Masoud Jan 08, 2017 16:50
== END 2017-01-08 12:16 | disposition home or self-care (01) ==
LOC: EDUNIT# 13:18 → EDBD 13:18 → SED 13:18 → MPC 17:02
PROVIDERS: ADMIT Family Medicine; ATTEND Family Medicine
DX: R41.82 Altered mental status, unspecified (principal); I95.1 Orthostatic hypotension; I12.9 Hypertensive chronic kidney disease with stage 1 through stage 4 chronic kidney disease, or unspecified chronic kidney disease; E11.22 Type 2 diabetes mellitus with diabetic chronic kidney disease; N18.9 Chronic kidney disease, unspecified; Z79.4 Long term (current) use of insulin; Z79.82 Long term (current) use of aspirin; E78.5 Hyperlipidemia, unspecified; J45.909 Unspecified asthma, uncomplicated; K21.9 Gastro-esophageal reflux disease without esophagitis; W18.30XA Fall on same level, unspecified, initial encounter; Y93.9 Activity, unspecified; Y92.018 Other place in single-family (private) house as the place of occurrence of the external cause; Y99.8 Other external cause status; Z86.73 Personal history of transient ischemic attack (TIA), and cerebral infarction without residual deficits
CPT/HCPCS: 36415; 70450; 70551; 71010; 80048; 80053; 80061; 81000; 83735; 84439; 84443; 84484; 85025; 85027; 85610; 85730; 92610; 93005; 93880; 94640; 94664; 96361; 96374; 96375; 96376; 97116; 97162; 97166; 99285; C8929; G0378; J0360; J1815; J2405; J3490; J7030

== ENCOUNTER 2017-01-16 09:34 | Emergency (ER) | payer MEDICARE ==
[~2017-01-16] VITALS: Ht 154.9 cm; Wt 68.6 kg
[~2017-01-16 09:34] MED LIST changes: +ALBU8.5H2 INHALATION; -Acetaminophen PO; -BECL8.7A6 IH; -CEPH-512 PO; +CLOP75TA28 PO; -LABE200T PO; +LABE300T PO; -MYCC TOPICAL
[2017-01-16 09:46] VITALS: BP 108/60; PULSE 89; RESP 10; O2SAT 97
--- NOTE | 2017-01-16 10:11 | ED.REPORT ---
HPI-Abd Pain F 40 and Over Date of Service Jan 16, 2017 ED Provider: Tani Pace DO The patient is a 76 year old female w/ a hx of HTN, asthma, DM, and recent CO who presents to the ED accompanied by her family due to diarrhea every ten minutes since yesterday evening. Associated symptoms include abdominal pain and 3 episodes of vomiting. Per the pt's family, she was in the hospital last week for 3 days due to a CO w/ brief LOC. Since the hospitalization, she had one episode of LOC after her her blood sugar dropped. The paramedics were called but she did not go to the hospital. Another family member was recently hospitalized with rotavirus. She denies hematochezia, hematemesis, and nausea. Nursing Notes Stated Complaint: DIARRHEA Chief Complaint: Female Abdominal Pain Nursing Notes Reviewed: Yes Allergies: Coded Allergies: pioglitazone (Verified Allergy, Intermediate, Nausea,Vomiting, 01/05/17) rosiglitazone (Verified Allergy, Intermediate, Nausea,Vomiting, 01/05/17) amoxicillin (Verified Allergy, Mild, itching, 01/05/17) ciprofloxacin HCl (Verified Allergy, Mild, Rash,Itching,, 01/05/17) per PCP record from [facility] clavulanic acid (Verified Allergy, Mild, itching, 01/05/17) erythromycin base (Verified Allergy, Mild, unknown, 01/05/17) per PCP record at [facility] morphine (Verified Adverse Reaction, Intermediate, Nausea,Vomiting, ) Scheduled Amlodipine (Amlodipine) 5 Mg Tablet 5 MG PO DAILY Aspirin (Aspirin) 81 Mg Tablet 81 MG PO DAILY Atorvastatin (Lipitor) 10 Mg Tab 10 MG PO HS Cholecalciferol (Vitamin D3) (Vitamin D) 1,000 Unit Tablet 2,000 UNIT PO DAILY Clopidogrel (Clopidogrel) 75 Mg Tablet 75 MG PO DAILY Ferrous Sulfate (Ferrous Sulfate) 324 Mg Tablet.dr 324 MG PO DAILY Gabapentin (Gabapentin) 100 Mg Capsule 100 MG PO HS Insulin Glargine (Lantus U100 Insulin Vial) 100 Unit/Ml Vial 15-20 UNIT SUBQ BID Ipratropium [place] (Atrovent HFA) 200 Puff/12.9 Gm Inhaler 2 PUFF INH QID Labetalol (Labetalol) 300 Mg Tablet 300 MG PO TID Montelukast (Montelukast) 10 Mg Tablet 10 MG PO HS Omeprazole (Omeprazole) 20 Mg Capsule.dr 20 MG PO BID Scheduled PRN Albuterol HFA (Proair HFA) 8.5 Gm Hfa.aer.ad 2 PUFFS INHALATION Q4H PRN PRN For Shortness of Breath Fluticasone Propionate (Fluticasone Propionate Nasal) 16 Gm [place].susp 2 SPRAY NS DAILY PRN PRN allergies Loperamide (Loperamide) 2 Mg Capsule 2 MG PO Q4H PRN PRN For Diarrhea or Loose Stool Ondansetron ODT (Ondansetron ODT) 8 Mg Tab.rapdis 8 MG SL QID PRN PRN For Nausea Ondansetron ODT (Zofran ODT) 4 Mg Tablet 4 MG PO Q4H PRN PRN For Nausea General Time Seen by MD: 10:10 Chief Complaint Diarrhea moderate Hx Obtained From: Patient Arrived By: Walk-in Sudden in Onset?: Yes Onset Occurred: Yesterday Symptom Duration: Since onset Progression since Onset: Unchanged Location: : Abdomen lower: Abdomen upper Radiation: : Does not radiate Severity: Current: Mild Recent Healthcare: Recent doctor visit, Recent hospitalization Similar Sx Previous: No Past Medical History Past Medical History h/o vertigo Severe HTN UTI Atypical pneumonia recent [place] Reports: Asthma, Diabetes mellitus, GERD, Hyperlipidemia, Hypertension Reports: Kidney disease, Urinary tract infection Past Surgical History Reports: Appendectomy, Hysterectomy Family History noncontributory Smoking History Never Smoker Social History Alcohol Use: Denies alcohol use Other Social History: Good social support, , Local resident Ambulatory Status Independent Review of Systems GI: Reports: Abdominal pain, Diarrhea, Vomiting, Denies: Hematemesis, Hematochezia, Nausea Complete sys rev & neg: except as marked. Physical Exam Vital Signs Vital Signs (First) Date Time Temp Pulse Resp B/P Pulse Ox O2 Delivery O2 Flow Rate FiO2 01/16/17 09:46 36.9 89 10 108/60 97 Room Air Initial VS: Reviewed Head / Eyes: Atraumatic, Normocephalic, PERRL ENT: Mucous membranes moist, Conjunctiva normal, No scleral icterus Extremities: Vascular intact, Neuro intact, No swelling, No tenderness Skin: Warm, Dry, No cyanosis Neurologic: Alert, Oriented, Nonfocal General/Constitutional: Awake, Alert, Cooperative, Not toxic appearing Respiratory / Chest: Atraumatic, Breath sounds NL, Breath sounds = bilat, No respiratory distress Cardiovascular: Heart rate NL, Regular rhythm, Heart sounds NL, No gallop, No murmurs, No rubs Abdomen: Atraumatic, Soft, No guarding, No rebound Tenderness/Guarding/Rebound: Positive: Tender LLQ... (Mild), Tender RLQ... ( Mild), Tender suprapubic Back: Atraumatic, Inspection NL, Full range of motion, Painless range of motion , Non-tender Interpretation & Diagnostics Lab Results Interpretation Result Diagram: 01/16/17 1150 01/16/17 1150 Test 01/16/17 11:50 01/16/17 13:25 01/16/17 15:11 White Blood Count 9.7th/mm3 (3.8-10.1) Red Blood Count 4.00mil/mm3 (3.90-5.20) Hemoglobin 11.1g/dL (12.0-15.6) Hematocrit 34.2% (35.0-46.0) Mean Corpuscular Volume 85.5fL (81-100) Mean Corpuscular Hemoglobin 27.8pg (27.0-35.0) Mean Corpuscular Hemoglobin Concent 32.5% (32.0-37.0) Red Cell Distribution Width 14.4% (12.3-15.4) Platelet Count 269bil/L (150-400) Neutrophils (%) (Auto) 76% (40-74) Lymphocytes (%) (Auto) 14% (14-46) Monocytes (%) (Auto) 3% (4-12) Eosinophils (%) (Auto) 3% (0-5) Basophils (%) (Auto) 0% (0-3) Band Neutrophils % 2% (1-5) Metamyelocytes % 1% (0-0) Myelocytes % 1% (0-0) Sodium Level 131mEq/L (134-144) Potassium Level 4.9mEq/L (3.5-5.2) Chloride Level 97mEq/L (97-108) Carbon Dioxide Level 18mmol/L (18-29) Blood Urea Nitrogen 36mg/dL (8-27) Creatinine 1.53mg/dL (0.57-1.00) Estimat Glomerular Filtration Rate 48mL/min (>59) Glucose Level 139mg/dL (60-99) Calcium Level 8.8mg/dL (8.5-10.1) Magnesium Level 1.4mg/dL (1.6-2.6) Total Bilirubin 0.4mg/dL (0.0-1.2) Aspartate Amino Transf (AST/SGOT) 91U/L (0-50) Alanine Aminotransferase (ALT/SGPT) 92U/L (0-32) Alkaline Phosphatase 121U/L (25-165) Total Protein 6.9g/dL (6.4-8.4) Albumin 3.6g/dL (3.4-5.0) Lipase 50U/L (13-60) Lactic Acid Level 0.6mmol/L (0.4-2.0) Urine Color Straw (YELLOW) Urine Appearance Hazy (CLEAR,HAZY) Urine pH 6.0 (5.0-8.0) Urine Specific [place] 1.015 (1.003-1.035) Urine Protein 30mg/dL (NEG,TRACE) Urine Glucose (UA) Negativemg/dL (NEGATIVE) Urine Ketones Negativemg/dL (NEGATIVE) Urine Occult Blood Moderate (NEGATIVE) Urine Nitrite Positive (NEGATIVE) Urine Bilirubin Negative (NEGATIVE) Urine Urobilinogen Normalmg/dL (NORMAL) Urine Leukocyte Esterase Negative (NEGATIVE) Urine RBC 0-2/hpf (0-2) Urine WBC 6-10/hpf (0-5) Urine Epithelial Cells Occasional/hpf (NONE-MOD) Urine Crystals None seen (NONE SEEN) Urine Bacteria Many/hpf (NONE-FEW) Urine Hyaline Casts None/lpf (NONE) Urine Granular Casts None seen (NONE SEEN) Urine Waxy Casts None seen (NONE SEEN) Urine Red Blood Cell Casts None seen (NONE SEEN) Urine White Blood Cell Casts None seen (NONE SEEN) Urine Mucus None seen (None Seen) Urine Trichomonas None seen (NONE SEEN) Urine Yeast None (NONE SEEN) Urinalysis Comment None Urine Culture Reflexed Indicated X-Ray Abdominal Interpretation IMPRESSION: No acute abnormality as above Dictated by: Aguilar Palma M.D. on 01/16/2017 at 11:58 Approved by: Aguilar Palma M.D. on 01/16/2017 at 11:59 Study: 2 view Interpretation / Wet Read by: Interpret - Radiologist Re-Eval/Medical Decision Med Decision/Clinical Course 76-year-old female with a history of hypertension, CKD 3 with a baseline creatinine of 1.5, and diabetes presents with diarrhea and nausea since last evening. A family member is hospitalized currently with rotavirus. Interestingly her stool PCR returned positive for Norovirus. Advised her that there is nothing we can do other than symptomatic cares. It does not appear that she is excessively dehydrated at this time as her creatinine is at baseline. She was given 1 L of fluid while in the emergency department today. Her nausea is improved with Zofran. I have discharged her with Zofran and parameters of when to return to the hospital she is not getting better. I have also advised her regarding contact precautions at home to prevent the spread of this contagious illness. Patient understands the plan and agrees. Re-Evaluation/Progress : Time of Eval: 15:11 Patient Status: Condition improved Re-Evaluation/Progress Note: Pt rechecked. Informed pt of diagnosis of norovirus and plan of treatment. F/U and RTER warnings given. Pt understands and agrees with plan. Counseled Regarding: Diagnosis, Lab results, Need for follow-up, When/why to return to ED Discharge & Departure Primary Impression: Norovirus Additional Impressions: Diarrhea Nausea & vomiting Vomiting type: unspecified Vomiting Intractability: unspecified Qualified Code: R11.2 - Nausea with vomiting, unspecified Disposition: Home Discharge Condition All VS Reviewed: Yes Condition: Stable Additional Instructions: There are no dangerous causes for your symptoms. Your lab results show that you have Norovirus. This is a common virus that can lead to a lot of vomiting, nausea and diarrhea. The best course of action is to drink plenty of fluids, stay well hydrated, and get a lot of rest. Make sure you are urinating at least twice a day. I will give you a prescription for antinausea medication, Zofran. Discontinue taking Loperamide while you are sick as this will continue to irritate your stomach. The virus is very contagious, so make sure everyone in the family is washing their hands thoroughly and maintaining good hygiene. The virus is contagious for as long as she is having loose stools. Follow up with your primary care physician in a week for further care and evaluation. Return to the Emergency Department for any new or worsening symptoms. I hope you feel better soon! Referrals: Jovana Estrada MD (PCP) Isabel Attestation Portion of this note were transcribed by Jessica Shannon. I, Dr. Pace, personally performed the history, physical exam, and medical decision-making: I reviewed and confirmed the accuracy for the information in the transcribed note. Signed by: isabel Vazquez, 01/16/17 1300 copies to: Jovana Estrada MD, Gary R DO Jan 16, 2017 10:11 Jessica Shannon Jan 16, 2017 10:52
[2017-01-16] MEDS ORDERED: Ondansetron 2 mg/mL 2 mL Inj IVPUSH ONE (10:50)
[2017-01-16] MEDS ORDERED: Ketorolac 15 mg/mL Inj IVPUSH ONE (10:50)
[2017-01-16] MEDS ORDERED: 0.9% Sodium Chloride 1,000 ML IV ONE (10:50)
--- NOTE | 2017-01-16 12:01 | DRSVH ---
PROCEDURE: X-RAY ACUTE ABDOMINAL SERIES ([id number]) INDICATIONS: abdominal pain TECHNIQUE: One view chest and two views of the abdomen were acquired. COMPARISON: [facility], CR, XR ABD ACUTE SERIES 3VW, 05/06/2016, 12:50. FINDINGS: Surgical changes and devices: None. Chest: Lungs are clear. Heart size is normal. No pleural effusions. No pneumoperitoneum. Abdomen: Bowel gas pattern is normal. No suspicious calcifications. Visualized solid organ contour s appear normal. Bones: No suspicious bony lesions. IMPRESSION: No acute abnormality as above Dictated by: Aguilar Palma M.D. on 01/16/2017 at 11:58 Approved by: Aguilar Palma M.D. on 01/16/2017 at 11:59
[2017-01-16 12:59] LABS: Mean Corpuscular Hemoglobin 27.8 pg (27.0-35.0); Mean Corpuscular Volume 85.5 fL (81-100); Platelet Count 269 bil/L (150-400)
[2017-01-16 13:19] LABS: BASOPHILS % (AUTO) 0 % (0-3); EOSINOPHILS % (AUTO) 3 % (0-5); MONOCYTES % (AUTO) 3 % (4-12); NEUTROPHILS % (AUTO) 76 % (40-74)
[2017-01-16 13:22] LABS: Magnesium 1.4 mg/dL (1.6-2.6)
[2017-01-16] MEDS ORDERED: ONDA4TAB9 PO (15:29)
[2017-01-16 15:41] LABS: APPEARANCE,URINE HAZY (CLEAR,HAZY); COLOR,URINE STRAW (YELLOW); OCCULT BLOOD,URINE MODERATE (NEGATIVE); UROBILINOGEN,URINE NORMAL (NORMAL)
[2017-01-16 16:09] VITALS: BP 159/55; PULSE 89; RESP 10; O2SAT 97
== END 2017-01-16 16:10 | disposition home or self-care (01) ==
LOC: SED 09:34
DX: A08.11 Acute gastroenteropathy due to Norwalk agent (principal); J45.909 Unspecified asthma, uncomplicated; K21.9 Gastro-esophageal reflux disease without esophagitis; E78.5 Hyperlipidemia, unspecified; E11.59 Type 2 diabetes mellitus with other circulatory complications; I11.9 Hypertensive heart disease without heart failure; I25.2 Old myocardial infarction; Z79.82 Long term (current) use of aspirin; Z79.4 Long term (current) use of insulin; Z88.1 Allergy status to other antibiotic agents; Z88.5 Allergy status to narcotic agent; Z88.8 Allergy status to other drugs, medicaments and biological substances
CPT/HCPCS: 36415; 74022; 80053; 81000; 83605; 83690; 83735; 85025; 87086; 87088; 87507; 96361; 96374; 96375; 99285; J1885; J2405; J7030

== ENCOUNTER 2017-02-15 11:40 | Inpatient (IN) | payer MEDICARE ==
[~2017-02-15] VITALS: Ht 154.9 cm; Wt 69.0 kg
[~2017-02-15 11:40] MED LIST changes: +ONDA4TAB9 PO
[2017-02-15 11:44] VITALS: BP 105/60; PULSE 84; RESP 16; O2SAT 98
--- NOTE | 2017-02-15 11:55 | ED.REPORT ---
HPI-NVD Date of Service Feb 15, 2017 ED Provider: Elvi Navas History of Present Illness: diarrhea for a few days, yesterday more than 15 times and 7 times this am. no blood. Bautista Estrada is primary care. last visit was 7 days ago for check on diabetes. vomiting also yesterday 4 to 5 times a day. Abd pain with vomiting Nursing Notes Stated Complaint: DIARRHEA/POSSIBLE DEHYDRATION Chief Complaint: Female Abdominal Pain Nursing Notes Reviewed: Yes Allergies: Coded Allergies: pioglitazone (Verified Allergy, Intermediate, Nausea,Vomiting, 02/15/17) rosiglitazone (Verified Allergy, Intermediate, Nausea,Vomiting, 02/15/17) amoxicillin (Verified Allergy, Mild, itching, 02/15/17) ciprofloxacin HCl (Verified Allergy, Mild, Rash,Itching,, 02/15/17) per PCP record from [facility] clavulanic acid (Verified Allergy, Mild, itching, 02/15/17) erythromycin base (Verified Allergy, Mild, unknown, 02/15/17) per PCP record at [facility] morphine (Verified Adverse Reaction, Intermediate, Nausea,Vomiting, 02/15/17 ) Scheduled Amlodipine (Amlodipine) 5 Mg Tablet 5 MG PO DAILY Aspirin (Aspirin) 81 Mg Tablet 81 MG PO DAILY Atorvastatin (Lipitor) 10 Mg Tab 10 MG PO HS Cholecalciferol (Vitamin D3) (Vitamin D) 1,000 Unit Tablet 2,000 UNIT PO DAILY Clopidogrel (Clopidogrel) 75 Mg Tablet 75 MG PO DAILY Ferrous Sulfate (Ferrous Sulfate) 324 Mg Tablet.dr 324 MG PO DAILY Gabapentin (Gabapentin) 100 Mg Capsule 100 MG PO HS Insulin Glargine (Lantus U100 Insulin Vial) 100 Unit/Ml Vial 15-20 UNIT SUBQ BID Ipratropium [place] (Atrovent HFA) 200 Puff/12.9 Gm Inhaler 2 PUFF INH QID Labetalol (Labetalol) 300 Mg Tablet 300 MG PO TID Montelukast (Montelukast) 10 Mg Tablet 10 MG PO HS Omeprazole (Omeprazole) 20 Mg Capsule.dr 20 MG PO BID Scheduled PRN Albuterol HFA (Proair HFA) 8.5 Gm Hfa.aer.ad 2 PUFFS INHALATION Q4H PRN PRN For Shortness of Breath Fluticasone Propionate (Fluticasone Propionate Nasal) 16 Gm [place].susp 2 SPRAY NS DAILY PRN PRN allergies Loperamide (Loperamide) 2 Mg Capsule 2 MG PO Q4H PRN PRN For Diarrhea or Loose Stool Ondansetron ODT (Ondansetron ODT) 8 Mg Tab.rapdis 8 MG SL QID PRN PRN For Nausea Ondansetron ODT (Zofran ODT) 4 Mg Tablet 4 MG PO Q4H PRN PRN For Nausea General Time Seen by MD: 11:54 Chief Complaint Nausea, Vomiting, Diarrhea Hx Obtained From: Patient Onset Occurred: 2 days ago Symptom Duration: Since onset Diarrhea: Diarrhea > 10 episodes Past Medical History Past Medical History h/o vertigo Severe HTN UTI Atypical pneumonia recent [place] Reports: Asthma, Diabetes mellitus, GERD, Hyperlipidemia, Hypertension Reports: Kidney disease, Urinary tract infection Past Surgical History Reports: Appendectomy, Hysterectomy Family History noncontributory Smoking History Never Smoker Social History Alcohol Use: Denies alcohol use Other Social History: Good social support, , Local resident Occupation lives with and son, no work or school 02/15/2017 Ambulatory Status Independent Review of Systems Basic Review of Systems Eyes: Vision NL, No discharge Hematologic: No bleeding, No bruising Psychiatric: Normal thought content Physical Exam Initial Vital Signs Vital Signs (First) Date Time Temp Pulse Resp B/P Pulse Ox O2 Delivery O2 Flow Rate FiO2 02/15/17 11:44 36.4 84 16 105/60 98 Room Air Initial VS: Reviewed, Vital signs normal Head / Eyes: Atraumatic, Normocephalic, PERRL ENT: Mucous membranes moist, Conjunctiva normal, No scleral icterus Neck: Supple, Non-tender, Full range of motion Respiratory: Breath sounds normal, Clear to auscultation, No respiratory distress Cardiovascular: Regular rate & rhythm, Heart sounds normal, Intact distal pulses Back: No CVA tenderness Lymphatic: No lymphadenopathy Extremities: Vascular intact, Neuro intact, No swelling, No tenderness Skin: Warm, Dry, No cyanosis Neurologic: Alert, Oriented, Nonfocal Psychiatric: Mood/affect normal, Behavior normal, Normal thought content General/Constitutional: Awake, Alert, No acute distress, Well appearing, Well developed, Well hydrated Abdomen: Atraumatic, Soft, Non-tender, [place]'s non-tender Bowel Sounds / Distention: Positive: Bowel sounds hyperactive ENT: Atraumatic, Airway patent, Mucous membranes moist, Pharynx NL Respiratory / Chest: Atraumatic, Breath sounds NL, Breath sounds = bilat, No respiratory distress Cardiovascular: Heart rate NL, Regular rhythm, Heart sounds NL, No gallop Interpretation & Diagnostics Lab Results Interpretation Result Diagram: 02/15/17 1230 02/15/17 1528 Test 02/15/17 12:30 02/15/17 14:52 02/15/17 15:28 White Blood Count 8.0th/mm3 (3.8-10.1) Red Blood Count 3.87mil/mm3 (3.90-5.20) Hemoglobin 10.7g/dL (12.0-15.6) Hematocrit 34.4% (35.0-46.0) Mean Corpuscular Volume 88.9fL (81-100) Mean Corpuscular Hemoglobin 27.6pg (27.0-35.0) Mean Corpuscular Hemoglobin Concent 31.1% (32.0-37.0) Red Cell Distribution Width 13.8% (12.3-15.4) Platelet Count 291bil/L (150-400) Neutrophils (%) (Auto) 64% (40-74) Lymphocytes (%) (Auto) 12% (14-46) Monocytes (%) (Auto) 11% (4-12) Eosinophils (%) (Auto) 4% (0-5) Basophils (%) (Auto) 0% (0-3) Band Neutrophils % 3% (1-5) Metamyelocytes % 2% (0-0) Myelocytes % 4% (0-0) Prothrombin Time 10.8sec (8.1-12.5) Prothromb Time International Ratio 1.01ratio Sodium Level 134mEq/L (134-144) Potassium Level 5.1mEq/L (3.5-5.2) Chloride Level 98mEq/L (97-108) Carbon Dioxide Level 19mmol/L (18-29) Estimat Glomerular Filtration Rate 32mL/min (>59) Glucose Level 89mg/dL (60-99) Calcium Level 9.6mg/dL (8.5-10.1) Magnesium Level 1.3mg/dL (1.6-2.6) Total Bilirubin 0.3mg/dL (0.0-1.2) Aspartate Amino Transf (AST/SGOT) 95U/L (0-50) Alanine Aminotransferase (ALT/SGPT) 105U/L (0-32) Alkaline Phosphatase 125U/L (25-165) Total Protein 8.2g/dL (6.4-8.4) Albumin 4.0g/dL (3.4-5.0) Procalcitonin 0.13ng/mL (0.00-0.08) Lactic Acid Level 0.6mmol/L (0.4-2.0) Blood Urea Nitrogen 30mg/dL (8-27) Creatinine 1.85mg/dL (0.57-1.00) BUN/Creatinine Ratio 16.21 (7-24) Lab Results Interpretation: PCR is positive for e-coli and rotravirus A Re-Eval/Medical Decision Med Decision/Clinical Course 77 year old female presents for evualation of diarrhea and vomiting for 2 to 3 days. Stool pcr is positive for e-coli and rotra virus A. No sign of appy or bowel obstruction Discharge & Departure Impression: Primary Impression: Diarrhea Diarrhea type: unspecified type Qualified Code: R19.7 - Diarrhea, unspecified Additional Impression: E. coli infection Disposition: ADMITTED TO HOSPITAL Referrals: Jovana Estrada MD (PCP) EDSupervising Provider for APC: Luan Gregg MD copies to: Jovana Estrada MD, Sue ARNP Feb 15, 2017 11:55
[2017-02-15] MEDS ORDERED: Ondansetron 2 mg/mL 2 mL Inj IVPUSH ONE (12:10)
[2017-02-15] MEDS ORDERED: 0.9% Sodium Chloride 1,000 ML IV ONE ×3 (12:10→15:25)
[2017-02-15 12:42] LABS: Mean Corpuscular Hemoglobin 27.6 pg (27.0-35.0); Mean Corpuscular Volume 88.9 fL (81-100); Platelet Count 291 bil/L (150-400)
[2017-02-15 13:00] LABS: Magnesium 1.3 mg/dL (1.6-2.6)
[2017-02-15 13:39] LABS: BASOPHILS % (AUTO) 0 % (0-3); EOSINOPHILS % (AUTO) 4 % (0-5); MONOCYTES % (AUTO) 11 % (4-12); NEUTROPHILS % (AUTO) 64 % (40-74)
[2017-02-15 14:21] LABS: INR 1.01 ratio
[2017-02-15 15:14] VITALS: BP 129/68; PULSE 88; RESP 18; O2SAT 97
[2017-02-15] MEDS ORDERED: Ondansetron 2 mg/mL 2 mL Inj IVPUSH PRN (15:55)
[2017-02-15] MEDS ORDERED: Alum-Mag Hydrox-Simeth 30 mL Suspension PO PRN (15:55)
[2017-02-15] MEDS ORDERED: HYDROcodone-APAP 5-325 mg Tablet PO PRN (15:55)
[2017-02-15] MEDS ORDERED: Polyethylene Glycol (PEG) 17 Gm Powder PO PRN (15:55)
[2017-02-15] MEDS ORDERED: Magnesium Sulf 4 Gm/100 mL H2O 4 GM in IV Premix 1 EACH IV ONE (16:00)
--- NOTE | 2017-02-15 16:06 | PCM.HPMED ---
Subjective Date of Service Feb 15, 2017 Primary Provider: Admitting Physician: Blake Evans MD Primary Care Physician: Jovana Estrada MD Attending Physician: Blake Evans MD Admit Status: From the Emergency Department Chief Complaint: Diarrhea, Nausea and Vomiting History of Present Illness: Patient is a 77 year old female with a past medical history of Essential Hypertension, Diabetes Mellitus Type II, Hyperlipidemia, TIA, Asthma, Chronic Kidney Disease, and GERD. She presents to the ER at [facility] complaining of diarrhea for the last day or so. She has also been experiencing significant nausea and vomiting. She has been unable to tolerate any PO for a day and a half now. She has been having up to 15 watery bowel movements per day. Pt does complain of some mild abdominal cramping. Pt denies any recent sick contacts. Pt has not had any antibiotics recently. No other complaints or concerns at this time. Review of Systems: All systems reviewed and are negative except for what has already been mentioned in the HPI. Allergies Coded Allergies: pioglitazone (Verified Allergy, Intermediate, Nausea,Vomiting, 02/15/17) rosiglitazone (Verified Allergy, Intermediate, Nausea,Vomiting, 02/15/17) amoxicillin (Verified Allergy, Mild, itching, 02/15/17) ciprofloxacin HCl (Verified Allergy, Mild, Rash,Itching,, 02/15/17) per PCP record from [facility] clavulanic acid (Verified Allergy, Mild, itching, 02/15/17) erythromycin base (Verified Allergy, Mild, unknown, 02/15/17) per PCP record at [facility] morphine (Verified Adverse Reaction, Intermediate, Nausea,Vomiting, 02/15/17 ) Home Medications Pts medication reconciliation has not yet been completed. PMH 1. Essential Hypertension 2. Chronic Kidney Disease 3. Hyperlipidemia 4. Diabetes Mellitus, Type II 5. TIA 6. Asthma Surgical History 1. Hysterectomy 2. Appendectomy Family History Sister - Diabetes Mellitus Social History Hx Alcohol Use: No Hx Substance Use: No Hx Tobacco Use: No Smoking Status: Never Smoker Exam Vital Signs Vital Sign - Last Date Time Temp Pulse Resp B/P Pulse Ox O2 Delivery O2 Flow Rate FiO2 02/15/17 15:14 36.9 88 18 129/68 97 Room Air Exam GENERAL: NAD, Pt laying in bed comfortably HEENT: AT/NC, PERRLA, EOMI, Mucus Membranes are moist CARDIAC: RRR; No M/R/G PULM: CTAB; No wheezes or rhonchi bilaterally ABD: Soft, Mild TTP , Nondistended, Positive bowel sounds in all quadrants, No Hepatosplenomegaly appreciated EXT: No C/C/E; No calf tenderness bilaterally SKIN: Warm, Dry, [place], and Intact NEURO: Alert and oriented x3; Following all commands PSYCH: Normal mood and affect Lab and Diagnostics Result Diagram: 02/15/17 1230 02/15/17 1230 Assessment & Plan 1. Gastroenteritis, Viral - Will send stool for rapid biofire now - Start IV NS at 100 mL/hour - Pt was bolused with 3 liters of NS in the ER - Advance diet as tolerated - IV Zofran PRN for nausea and vomiting - Repeat BMP in AM 2. Acute Kidney Injury on CKD - Basline creatinine is around 1.4-1.5 - Continue IV fluids - Recheck BMP in AM - Avoid nephrotoxic substances - Likely secondary to severe dehydration from diarrhea 3. Dehydration - See #1 and #2 4. Essential Hypertension - Resume home medications 5. Diabetes Mellitus Type II - Check FSBS q AC and HS - SSI for now 6. Hyperlipidemia - Continue home statin therapy Partial Code, per discussion with patient at bedside. She would like chest compressions only and DOES NOT want to be intubated. Blake Evans MD Feb 15, 2017 16:06
[2017-02-15] MEDS ORDERED: Glucose 40% Oral Gel 15 Gm Tube PO PRN (16:25)
[2017-02-15 17:14] VITALS: BP 160/67; PULSE 95; RESP 18; O2SAT 100
[2017-02-15] MEDS: Insulin LISPRO 300 Unit/3 mL Inj SUBQ SCH ×2 (17:30→23:45)
[2017-02-15] MEDS: 0.9% Sodium Chloride 1,000 ML IV SCH (17:32)
[2017-02-15 17:52] VITALS: PULSE 95
--- NOTE | 2017-02-15 19:16 | NUR ---
Admit patient admitted to room 1003 from ER for abd pain with diarrhea for last few days up to 15 stools in a day. Patient with left upper abd/flank pain rated 10/10 refused narcotic for pain took Tylenol only. patient did ask for ibuprofen but Dr declined to order related to patients kidney function and this was relayed to patient .. family at bedside and precautions discussed regarding enteric precautions as patient is being tested for several stool infections.
[2017-02-15 19:51] VITALS: BP 170/74; PULSE 101; RESP 19; O2SAT 95
[2017-02-15 20:00] VITALS: PULSE 101
[2017-02-16 00:29] VITALS: BP 157/65; PULSE 86; RESP 18; O2SAT 93
[2017-02-16] MEDS: 0.9% Sodium Chloride 1,000 ML IV SCH ×3 (01:51→18:29)
[2017-02-16 05:25] LABS: Mean Corpuscular Hemoglobin 28.2 pg (27.0-35.0); Mean Corpuscular Volume 90.4 fL (81-100); Platelet Count 235 bil/L (150-400)
[2017-02-16 05:27] VITALS: BP 165/72; PULSE 84; RESP 18; O2SAT 93
[2017-02-16 05:45] LABS: Magnesium 2.4 mg/dL (1.6-2.6)
--- NOTE | 2017-02-16 05:59 | DRSVH ---
PROCEDURE: X-RAY ACUTE ABDOMINAL SERIES ([id number]) INDICATIONS: vomiting diarrhea TECHNIQUE: One view chest and two views of the abdomen were acquired. COMPARISON: None. FINDINGS: Surgical changes and devices: None. Chest: There is diffuse interstitial disease. No focal consolidation.. Heart size is normal. No ple ural effusions. No pneumoperitoneum. Abdomen: Bowel gas pattern is normal. No suspicious calcifications. Visualized solid organ contour s appear normal. Bones: No suspicious bony lesions. IMPRESSION: No bowel obstruction or free air. Dictated by: Aguilar Palma M.D. on 02/15/2017 at 13:17 Approved by: Aguilar Palma M.D. on 02/15/2017 at 13:22
[2017-02-16 06:07] LABS: BASOPHILS % (AUTO) 0 % (0-3); EOSINOPHILS % (AUTO) 0 % (0-5); MONOCYTES % (AUTO) 18 % (4-12); NEUTROPHILS % (AUTO) 50 % (40-74)
--- NOTE | 2017-02-16 06:36 | NUR ---
Incontinence/Pain Patient incontinent of both bladder and bowel, Small skin tears noted on anus, treated with frequent changes and application of Calmoseptine. Pain poorly managed Tylenol marginally effective. Heat used in addition to medication.
[2017-02-16] MEDS: Insulin LISPRO 300 Unit/3 mL Inj SUBQ SCH ×4 (08:00→22:00)
[2017-02-16] MEDS ORDERED: PANT40TA3 PO (08:29)
[2017-02-16] MEDS ORDERED: CHOL200047 PO (08:29)
[2017-02-16] MEDS ORDERED: ATRINH INH (08:42)
[2017-02-16] MEDS ORDERED: RANI150C4 PO (08:42)
[2017-02-16 09:45] VITALS: PULSE 76
[2017-02-16 10:33] LABS: APPEARANCE,URINE HAZY (CLEAR,HAZY); COLOR,URINE YELLOW (YELLOW); OCCULT BLOOD,URINE TRACE (NEGATIVE); PH,URINE 5.5 (5.0-8.0); UROBILINOGEN,URINE NORMAL (NORMAL)
--- NOTE | 2017-02-16 10:38 | PCM.PNMED ---
Subjective Date of Service Feb 16, 2017 Subjective Pt complains of continued diarrhea. She states it is better than previous. She denies nausea and vomiting at present. She does complain of significant urinary frequency and dysuria since last night. No other complaints or concerns at this time. Exam Vital Signs Vital Sign - Last Date Time Temp Pulse Resp B/P Pulse Ox O2 Delivery O2 Flow Rate FiO2 02/16/17 09:45 76 02/16/17 05:27 37.3 18 165/72 93 Room Air Intake and Output 02/15/17 02/15/17 02/16/17 Cumulative From/Thru 15:00 23:00 07:00 02/15/17 11:44 - 02/16/17 06:33 Intake Total 2000 ml 1000 ml 720 ml 3720 ml Output Total 0 ml 0 ml Balance 2000 ml 1000 ml 720 ml 3720 ml Intake Oral 0 ml 720 ml 720 ml IV Total 2000 ml 1000 ml 3000 ml Output Urine Total 0 ml 0 ml # Voids 3 3 # Bowel Movements 1 1 Exam GENERAL: NAD, Pt laying in bed comfortably HEENT: AT/NC, PERRLA, EOMI, Mucus Membranes are moist CARDIAC: RRR; No M/R/G PULM: CTAB; No wheezes or rhonchi bilaterally ABD: Soft, Nontender, Nondistended, Positive bowel sounds in all quadrants, No Hepatosplenomegaly appreciated EXT: No C/C/E; No calf tenderness bilaterally SKIN: Warm, Dry, [place], and Intact NEURO: Alert and oriented x3; Following all commands PSYCH: Normal mood and affect IVs and Medications Medications Reviewed: Medications were reviewed in detail Lab and Diagnostics Result Diagram: 02/16/17 0438 02/16/17 043 Assessment & Plan 1. Gastroenteritis, Viral - Stool positive for Epec and Rotavirus - Continue IV NS at 100 mL/hour - Pt was bolused with 3 liters of NS in the ER - Advance diet as tolerated - Continue IV Zofran PRN for nausea and vomiting - Repeat BMP in AM 2. Acute Kidney Injury on CKD - Pts renal function is returning to baseline with IV fluids - Basline creatinine is around 1.4-1.5 - Continue IV fluids at current rate for now - Recheck BMP in AM - Avoid nephrotoxic substances - Likely secondary to severe dehydration from diarrhea 3. Dysuria - Possibly secondary to UTI - Check UA with culture if indicated 4. Dehydration - See #1 and #2 5. Essential Hypertension - Resume home medications 6. Diabetes Mellitus Type II - Check FSBS q AC and HS - SSI for now 7. Hyperlipidemia - Continue home statin therapy VTE Mechanical Devices: Intermittant Pneumatic CD Blake Evans MD Feb 16, 2017 10:38
[2017-02-16 11:07] VITALS: BP 173/62; PULSE 78; RESP 17; O2SAT 96
--- NOTE | 2017-02-16 13:03 | NUR ---
Social Work-initial assessment: Data:See initial assessment. Pt is a 77 y/o female who was admitted on 02/15/17 for E Coli per H&P. Pt's insurance is [facility] and PCP is Jovana Estrada MD. EMR Reviewed. Pt's readmission score is 3-high risk. SW met with pt at bedside to discuss discharge planning, SW role explained. Pt is alert and oriented x3. pt resides at home with her where she remains independent with ADLS. Pt uses a fww at baseline and does not drive. Pt is currently open with [facility] for RN and PT. SW confirmed with Yazan Borrego and provided access. Pt has no SNF history. Pt has no [facility]PC care or VA benefits. SW discussed DPOA/ advanced directive, pt confirms she has not completed this and is not interested in any information. Pt states her will provide transport home at discharge. Pt will need resume HH orders through [facility] at discharge. SW provided phone number and plan on white board in room.SW will continue to follow. Assessment:Pt who is independent at baseline. plan:Pt to discharge home when medically stable via pOV. Pt will need resume HH orders for RN and PT through [facility]. SW will continue to follow. RAVINDER Medrano Addendum: 02/16/17 at 1307 by DENISE BUSH SS Amended: Links added.
--- NOTE | 2017-02-16 13:19 | NUR ---
diarrhea pt continues to have large amt diarrhea, WIRE MACHINE CUTTER reported very large liquid stool, denies nausea, eating a little, but seems to have poor appetite still. Also skin around anus is very red and raw, applied Camoseptine
[2017-02-16 15:20] VITALS: BP 197/86; PULSE 85; RESP 17; O2SAT 97
[2017-02-16 20:09] VITALS: BP 195/73; PULSE 81; RESP 16; O2SAT 97
[2017-02-17] VITALS (9 sets, daily range): BP systolic 168–192; BP diastolic 62–81; PULSE 59–92; RESP 14–20; O2SAT 95–99
--- NOTE | 2017-02-17 04:37 | NUR ---
Diarrhea Continues to have copious amount of very watery diarrhea. Perianal area very tender, red and excoriated; treated with barrier cream with every change. Intermittent abdominal cramping marginally well treated with prn Tylenol. Med rec in computer completed per RN notified to review. Hourly rounding ongoing.
[2017-02-17] MEDS: 0.9% Sodium Chloride 1,000 ML IV SCH ×2 (04:57→16:30)
[2017-02-17 05:33] LABS: BASOPHILS % (AUTO) 0.3 % (0-3); EOSINOPHILS % (AUTO) 3.9 % (0-5); MONOCYTES % (AUTO) 13.3 % (4-12); Mean Corpuscular Hemoglobin 27.7 pg (27.0-35.0); NEUTROPHILS % (AUTO) 57.7 % (40-74); Platelet Count 264 bil/L (150-400)
[2017-02-17] MEDS: Insulin LISPRO 300 Unit/3 mL Inj SUBQ SCH ×4 (07:30→21:18)
[2017-02-17] MEDS: cefTRIAXone Inj 2,000 MG in Dextrose 5% Minibag Plus 50 ML IV SCH (09:20)
--- NOTE | 2017-02-17 10:58 | PCM.PNMED ---
Subjective Date of Service Feb 17, 2017 Subjective Pt continues to complain of diarrhea. She has had 14 bowel movements in the last day. She denies nausea and vomiting. She continues to have dysuria. Pt denies any fever. No other complaints or concerns at this time. Exam Vital Signs Vital Sign - Last Date Time Temp Pulse Resp B/P Pulse Ox O2 Delivery O2 Flow Rate FiO2 02/17/17 09:22 37.0 85 14 181/62 97 Room Air Intake and Output 02/16/17 02/16/17 02/17/17 Cumulative From/Thru 15:00 23:00 07:00 02/15/17 11:44 - 02/17/17 06:19 Intake Total 2392 ml 2022 ml 8134 ml Output Total 670 ml 4858 ml 5528 ml Balance 1722 ml -2836 ml 2606 ml Intake Oral 420 ml 800 ml 1940 ml IV Total 1972 ml 1222 ml 6194 ml Output Urine Total 670 ml 170 ml 840 ml Urine/Stool Mix 4688 ml 4688 ml # Voids 9 14 26 # Bowel Movements 14 15 Exam GENERAL: NAD, Pt laying in bed comfortably HEENT: AT/NC, PERRLA, EOMI, Mucus Membranes are moist CARDIAC: RRR; No M/R/G PULM: CTAB; No wheezes or rhonchi bilaterally ABD: Soft, Nontender, Nondistended, Positive bowel sounds in all quadrants, No Hepatosplenomegaly appreciated EXT: No C/C/E; No calf tenderness bilaterally SKIN: Warm, Dry, [place], and Intact NEURO: Alert and oriented x3; Following all commands PSYCH: Normal mood and affect IVs and Medications Medications Reviewed: Medications were reviewed in detail Lab and Diagnostics Result Diagram: 02/17/172 02/17/17 044 Assessment & Plan 1. Gastroenteritis, Viral - Stool positive for Epec and Rotavirus - Continue IV NS at 100 mL/hour - Pt was bolused with 3 liters of NS in the ER - Continue to push PO - Continue IV Zofran PRN for nausea and vomiting - Repeat BMP in AM 2. Acute Kidney Injury on CKD - Pts renal function is back to baseline - Continue IV fluids at current rate for now given pt continues to have significant diarrhea - Recheck BMP in AM - Avoid nephrotoxic substances - Likely secondary to severe dehydration from diarrhea 3. Acute UTI - Present on admission - UA consistent with UTI, culture pending - Start Rocephin 2 grams IV daily now 4. Dehydration - See #1 and #2 5. Essential Hypertension - Uncontrolled - Increase Amlodipine to 10 mg PO daily 6. Diabetes Mellitus Type II - Continue to check FSBS q AC and HS - Continue SSI for now 7. Hyperlipidemia - Continue home statin therapy VTE Mechanical Devices: Intermittant Pneumatic CD Blake Evans MD Feb 17, 2017 10:58
--- NOTE | 2017-02-17 15:51 | NUR ---
GI/skin Denies abd pain and nausea. Tolerates general diet (sandwich and cottage cheese for lunch). Frequent diarrhea; incontinent of stool and urine. Aurea-rectal area/buttocks red and excoriated. Meticulous skin care with calmoseptine/barrier cream and frequent brief changes. Discussed fecal management system/rectal tube with patient and daughter, but pt adamantly refuses despite education.
--- NOTE | 2017-02-17 23:12 | NUR ---
Skin Pt has had 3 very loose diarreah stool this evening. Barrier creme applied as well as good jayson care. Pt is able to notify nurse when she has a BM which will decrease the amt of time the loose stool is on her skin. I encouraged her to do this measure. Care ongoing
[2017-02-18] MEDS: 0.9% Sodium Chloride 1,000 ML IV SCH ×3 (01:52→21:35)
--- NOTE | 2017-02-18 03:13 | NUR ---
Skin Pt's jayson area is very excoriated and bleeding (small amt) Pt cries when she is changed for loose stool. Barrier creme and camoseptime applied. Pt refuses rectal tube despite education. Pt refuses any pain medicine except tylenol.
[2017-02-18 04:35] VITALS: PULSE 97
[2017-02-18 04:54] VITALS: BP 170/73; PULSE 92; RESP 20; O2SAT 96
[2017-02-18 05:37] LABS: BASOPHILS % (AUTO) 0.2 % (0-3); EOSINOPHILS % (AUTO) 5.4 % (0-5); MONOCYTES % (AUTO) 9.2 % (4-12); Mean Corpuscular Hemoglobin 27.4 pg (27.0-35.0); Mean Corpuscular Volume 88.3 fL (81-100); NEUTROPHILS % (AUTO) 63.4 % (40-74); Platelet Count 259 bil/L (150-400)
[2017-02-18] MEDS: Insulin LISPRO 300 Unit/3 mL Inj SUBQ SCH ×4 (08:00→22:00)
[2017-02-18] MEDS ORDERED: Ipratropium HFA 200 Puff 12.9 Gm Inhaler INHALATION PRN (08:15)
[2017-02-18 08:54] VITALS: BP 183/79; PULSE 87; RESP 18; O2SAT 97
[2017-02-18] MEDS: Pantoprazole 40 mg ER24 Tablet PO SCH (10:07)
[2017-02-18] MEDS: cefTRIAXone Inj 2,000 MG in Dextrose 5% Minibag Plus 50 ML IV SCH (10:13)
[2017-02-18] MEDS ORDERED: Albuterol 2.5 mg/3 mL Inhalation Solution NEB PRN (11:00)
[2017-02-18 11:23] VITALS: PULSE 80
--- NOTE | 2017-02-18 12:09 | PCM.PNMED ---
Subjective Date of Service Feb 18, 2017 Subjective Pt continues to have diarrhea. She has had 7 bowel movements overnight. She denies nausea and vomiting. She denies fever and abdominal pain. No other complaints or concerns at this time. Exam Vital Signs Vital Sign - Last Date Time Temp Pulse Resp B/P Pulse Ox O2 Delivery O2 Flow Rate FiO2 02/18/17 11:23 80 02/18/17 08:54 36.6 18 183/79 97 Room Air Intake and Output 02/17/17 02/17/17 02/18/17 Cumulative From/Thru 15:00 23:00 07:00 02/15/17 11:44 - 02/18/17 06:27 Intake Total 1890 ml 1532 ml 13545 ml Output Total 687 ml 6215 ml Balance 1203 ml 1532 ml 5341 ml Intake Oral 900 ml 400 ml 3240 ml IV Total 990 ml 1132 ml 8316 ml Output Urine Total 840 ml Urine/Stool Mix 687 ml 5375 ml # Voids 3 29 # Bowel Movements 8 23 Exam GENERAL: NAD, Pt laying in bed comfortably HEENT: AT/NC, PERRLA, EOMI, Mucus Membranes are moist CARDIAC: RRR; No M/R/G PULM: CTAB; No wheezes or rhonchi bilaterally ABD: Soft, Nontender, Nondistended, Positive bowel sounds in all quadrants, No Hepatosplenomegaly appreciated EXT: No C/C/E; No calf tenderness bilaterally SKIN: Warm, Dry, [place], and Intact NEURO: Alert and oriented x3; Following all commands PSYCH: Normal mood and affect IVs and Medications Medications Reviewed: Medications were reviewed in detail Lab and Diagnostics Result Diagram: 02/18/1710 02/18/17 0510 Assessment & Plan 1. Gastroenteritis, Viral - Stool positive for Epec and Rotavirus - Continue IV NS at 100 mL/hour - Pt was bolused with 3 liters of NS in the ER - Continue to push PO - Continue IV Zofran PRN for nausea and vomiting - Repeat BMP in AM 2. Acute Kidney Injury on CKD - Pts renal function is back to baseline - Continue IV fluids at current rate for now given pt continues to have significant diarrhea - Recheck BMP in AM - Avoid nephrotoxic substances - Likely secondary to severe dehydration from diarrhea 3. Acute UTI - Present on admission - UA consistent with UTI, culture pending - Continue Rocephin 2 grams IV daily now 4. Dehydration - See #1 and #2 5. Essential Hypertension - Uncontrolled - Continue Amlodipine to 10 mg PO daily - Resume home Labetolol 300 mg PO BID 6. Diabetes Mellitus Type II - Continue to check FSBS q AC and HS - Continue SSI for now 7. Hyperlipidemia - Continue home statin therapy VTE Mechanical Devices: Intermittant Pneumatic CD Blake Evans MD Feb 18, 2017 12:09
[2017-02-18] MEDS: Fluticasone 0.05% 15 Spray/2 Gm 16 Gm Nasal Spray NASAL SCH (12:29)
--- NOTE | 2017-02-18 13:05 | NUR ---
Social work-continued d/c planning: Data:EMR reviewed. Pt si on day 3 for e-coli per H&P. Pt is not medically stable anticipate several more days. Pt resides at home with her and is open [facility]. Per RN notes, pt is a 2 person max assist, pt may need PT evaluation prior to discharge. SW will continue to follow. Assessment:pt who would benefit from HH. Plan;Pt to likely discharge home with resume [facility] when medically stable. Pt may need PT evaluation prior to discharge. SW will continue to follow. RAVINDER Medrano
[2017-02-18 14:38] VITALS: BP 157/68; PULSE 74; RESP 16; O2SAT 97
--- NOTE | 2017-02-18 14:49 | NUR ---
PCR LAB Per lab: PCR sent today. Results were identical to the 02/16 results. There for not logged into computer. Results remain the same. Care continues
--- NOTE | 2017-02-18 15:04 | NUR ---
NUTRITION ASSESSMENT: ASSESS: Pt is a 77yo F admitted for viral gastroenteritis. She continue to have persistent diarrhea. She is tolerating her heart healthy diet well at 25-100% of meals. Wt has been stable. PMHX: HTN, CKD, HLD, T2DM, TIA, Asthma LABS: Reviewed. Medicaid Nurse 1.11, Glu 210, ALT 39, Alb 3.2 MEDS: Reviewed. Vit D, Insulin GI: BMx14 02/18 SKIN: Kp 19 CURRENT WTS: 66.9kg, BMI 28.9kg/m2, admit wt 65.8kg DIET: Heart Healthy, PO 25-100% EST. NEEDS: Kcals: 1675-2005kcal/day (25-30kcal/kg) Pro: 65-80g/day (1.0-1.2g/kg) NUTRITION DIAGNOSIS: 1.) Altered GI function related to gastroenteritis as evidence by pt with persistent diarrhea NUTRITION INTERVENTION: 1.) Will add Glucerna on L tray to help supplement PO intake 2.) Encourage fluids MONITOR / EVAL: PO, GI, wt, labs, POC, nutrition status. Will continue to monitor per moderate nutrition risk guidelines.
[2017-02-18 17:08] VITALS: BP 147/64; PULSE 74; RESP 16; O2SAT 97
--- NOTE | 2017-02-18 18:36 | NUR ---
Wound Care Wound orders received, pt seen at bedside with nursing. 77 yo female admitted with rotovirus and e coli, reporting multiple episodes of loose stool. Patient now presents with moisture associated skin breakdown at both buttocks and groin. Recommend frequent pericare, utilizing wet wipes to clean stool and shield wipes for skin protection only, leave brief open to improve airflow. Encourage sidelying.
[2017-02-19] VITALS (8 sets, daily range): BP systolic 125–176; BP diastolic 58–71; PULSE 72–86; RESP 16; O2SAT 97–99
--- NOTE | 2017-02-19 05:20 | NUR ---
Incontinence Patient incontinent of both urine and stool and not notifying staff when brief needs to be changed. Skin tears on buttocks. Staff checking and changing patient every two hours or sooner as needed. Per wound nurse, wet wipes to clean stool and shield wipes for skin protection only and leave brief open for better airflow. Patient denied pain and nausea this shift. Call light and tray table within reach. Will continue to monitor patient hourly.
[2017-02-19] MEDS: Fluticasone 0.05% 15 Spray/2 Gm 16 Gm Nasal Spray NASAL SCH (08:43)
[2017-02-19] MEDS: Pantoprazole 40 mg ER24 Tablet PO SCH (08:45)
[2017-02-19] MEDS: Insulin LISPRO 300 Unit/3 mL Inj SUBQ SCH ×4 (08:45→22:20)
[2017-02-19] MEDS: cefTRIAXone Inj 2,000 MG in Dextrose 5% Minibag Plus 50 ML IV SCH (08:47)
[2017-02-19] MEDS: 0.9% Sodium Chloride 1,000 ML IV SCH (09:51)
--- NOTE | 2017-02-19 11:20 | PCM.PNMED ---
Subjective Date of Service Feb 19, 2017 Subjective Pt states she is feeling much better today. She states she has only had 2 bowel movements this morning, but did have 10 last night. Pt denies abdominal pain and fever. No other complaints or concerns at this time. Exam Vital Signs Vital Sign - Last Date Time Temp Pulse Resp B/P Pulse Ox O2 Delivery O2 Flow Rate FiO2 02/19/17 08:32 36.5 86 16 176/71 97 Room Air Intake and Output 02/18/17 02/18/17 02/19/17 Cumulative From/Thru 15:00 23:00 07:00 02/15/17 11:44 - 02/19/17 05:38 Intake Total 1160 ml 2082 ml 63368 ml Output Total 614 ml 6829 ml Balance 1160 ml 1468 ml 7969 ml Intake Oral 760 ml 300 ml 4300 ml IV Total 400 ml 1782 ml 41970 ml Output Urine Total 614 ml 1454 ml Urine/Stool Mix 5375 ml # Voids 3 1 33 # Bowel Movements 2 1 26 Exam GENERAL: NAD, Pt laying in bed comfortably HEENT: AT/NC, PERRLA, EOMI, Mucus Membranes are moist CARDIAC: RRR; No M/R/G PULM: CTAB; No wheezes or rhonchi bilaterally ABD: Soft, Nontender, Nondistended, Positive bowel sounds in all quadrants, No Hepatosplenomegaly appreciated NEURO: Alert and oriented x3; Following all commands PSYCH: Normal mood and affect IVs and Medications Medications Reviewed: Medications were reviewed in detail Lab and Diagnostics Result Diagram: 02/18/17 0510 02/19/17 0450 Assessment & Plan 1. Gastroenteritis, Viral - Improving - Stool positive for Epec and Rotavirus - Continue IV NS at 100 mL/hour while pt is having diarrhea - Pt was bolused with 3 liters of NS in the ER on admission - Continue to push PO - Continue IV Zofran PRN for nausea and vomiting - Repeat BMP in AM 2. Acute Kidney Injury on CKD - Pts renal function is back to baseline - Continue IV fluids at current rate for now given pt continues to have significant diarrhea - Recheck BMP in AM - Avoid nephrotoxic substances - Likely secondary to severe dehydration from diarrhea 3. Acute UTI - Present on admission - Urine culture is positive for E. Coli ESBL - Stop Rocephin now - ID consult placed in [employer] 4. Dehydration - Resolving with IV fluids as mentioned above - See #1 and #2 5. Essential Hypertension - Continue Amlodipine to 10 mg PO daily - Continue home Labetolol 300 mg PO BID 6. Diabetes Mellitus Type II - Continue to check FSBS q AC and HS - Continue SSI for now 7. Hyperlipidemia - Continue home statin therapy 8. Disposition - Anticipate discharge to home once pt is having no more than 3 bowel movements per day and is no longer requiring IV fluids, anticipate pt may be able to discharge to home in AM (02/20/2017) VTE Mechanical Devices: Intermittant Pneumatic CD Blake Evans MD Feb 19, 2017 11:20
--- NOTE | 2017-02-19 13:22 | NUR ---
Evaluation completed. Please go to "Notes" then click on "Assessments and Notes" (bottom left corner of screen). Then select appropriate discipline tab on top of screen.
--- NOTE | 2017-02-19 19:19 | NUR ---
Mentation / Ambulation Pt seems in better spirits today and seems more talkative with staff. Pt has also been using call light to tall staff when she needs to void and has been continent. Ambulating SBA 1 assist to commode. Care continues
--- NOTE | 2017-02-19 23:45 | CONS ---
[address] [address] CONSULTATION REPORT PATIENT: HORACE BERRY : 1940 MR#: [id number] ADMIT: 02/15/2017 JOB ID: [id number] DATE OF SERVICE: 02/19/[address] Evans for this consult. REASON FOR CONSULTATION: Diarrhea with possible UTI. 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 She reports that many other people in her family have had a similar process including a daughter and some grandchildren but she has been careful to isolate herself from them. One of her children had this so bad that she was actually seen here in the hospital fairly recently. The patient noted that she did not have any significant fevers, chills or sweats with these GI symptoms. She did note she also had a bit of dysuria which seems to have improved obtuse marginal the last day or two since she has been getting some antibiotics. She notes that the diarrhea is now starting to improve. PAST MEDICAL HISTORY: 1. Essential hypertension. 2. Chronic renal insufficiency. 3. Type 2 diabetes. 4. Hyperlipidemia. 5. Asthma. FAMILY HISTORY: Positive for diabetes in a sister but negative for tuberculosis in any family members she is aware of including 1st and 2nd degree family members. 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 She is a nonsmoker, nondrinker. PHYSICAL EXAMINATION: Reveals an afebrile woman, temperature 36.5, pulse 75, respiratory rate 16, blood pressure 125/58. She is saturating well on room air. She is mentally sharp, alert and oriented. No evidence of head trauma. No scleral icterus. Oral cavity without thrush or hairy leukoplakia. Neck is supple. Lungs are clear. Cardiac tones: Regular rate and rhythm. Abdomen is soft, nontender, without organomegaly. No suprapubic fullness. She does not have a Vargas catheter. No palpable cervical or inguinal adenopathy. No evidence of synovitis. No peripheral edema. No cellulitis. Patient is neurologically intact throughout. The remainder of the physical is normal. LABORATORIES: Include white count normal on admission 8000, still 8000. Normal diff though she did have a bit of a left shift when she first came in. Creatinine is 1.11. LFTs normal. Procalcitonin basically negative at 0.13. Urinalysis on admission had only 6-10 white cells, but it did grow two different organisms including an ESBL E. coli and a Klebsiella that was moderately resistant as well including resistance to first generation cephalosporins, Cipro and Bactrim. The stool was positive for rotavirus A. Interestingly, we looked back at the daughter's stool PCR as part of an epidemiologic investigation and found that she also had rotavirus A. IMAGING: Includes an abdominal radiograph done on the when she was in the ED that was negative. IMPRESSION: This woman presents with basically rotavirus infection. The EPEC found on the PCR is of uncertain significance as we get a lot of positives and some believed these may represent false positives, but the rotavirus is confirmed and definitely was circulating through her family. I doubt that she has much going on in terms of urinary tract infection, but she did note that she had some minimal dysuria. Her urinalysis is actually normal for a woman her age with less than 10 white cells, but it is probably reasonable to give a single dose of fosfomycin as treatment. Ceftriaxone will not work in terms of treating her urinary tract infection and will predispose her to worse problems. RECOMMENDATIONS: 1. DC ceftriaxone. 2. We have written for 3 g of fosfomycin x1. 3. From an Infectious Disease point of view, the patient can be discharged at any time. 4. ID will sign off. Thank you very much for this consult.
[2017-02-20 00:14] VITALS: BP 149/62; PULSE 75; RESP 16; O2SAT 99
[2017-02-20] MEDS: 0.9% Sodium Chloride 1,000 ML IV SCH (02:20)
--- NOTE | 2017-02-20 02:46 | NUR ---
Incontinence Pt refused to ambulate/BRP at night due to loose stool, which continues to irritate excoriation. This GAGE DESIGNER encouraged PT to continue use BRP to help less irritation to skin break down. Pt REF to ambulate at nights & would rather wear briefs. GAGE DESIGNER has been using skin barrier wipes with each brief change. GAGE DESIGNER has educated Pt about lack of using BRP, voiding & having stool lying in brief will not help heal open wound using skin barrier wipes. Pt will only get out of bed with male nurse, not with GAGE DESIGNER on shift.
--- NOTE | 2017-02-20 03:48 | NUR ---
Incontinent Patient continues to have several loose stools this shift. Patient wearing brief and incontinent. Patient was able to get up to the bathroom once this shift. Tylenol given for pain /10 once this shift. Standby assist with FWW, gate a bit unsteady. Vitals stable.
[2017-02-20 05:26] VITALS: BP 139/57; PULSE 74; RESP 18; O2SAT 98
[2017-02-20 08:00] VITALS: PULSE 84
[2017-02-20 08:13] VITALS: BP 138/67; PULSE 79; RESP 18; O2SAT 97
[2017-02-20] MEDS: Pantoprazole 40 mg ER24 Tablet PO SCH (09:10)
--- NOTE | 2017-02-20 09:17 | PCM.DIMED ---
Ziyad Haines DO 02/20/17 0916: Discharge Instructions Date of Service Feb 20, 2017 Dates of Hospitalization Feb 15, 2017 at 15:40 Discharge Diagnosis Discharge Diagnosis 1. Gastroenteritis, Viral 2. Acute Kidney Injury on Chronic Kidney Disease 3. Acute Urinary Tract Infection 4. Dehydration 5. Essential Hypertension 6. Diabetes Mellitus Type II 7. Hyperlipidemia Medication Instructions Please continue to take your home medications. Take them as directed. Diet Heart Healthy, Diabetic Activity Home Health Phyical Therapy Call your provider Fever or Chills, Shortness of breath, Bleeding, Chest pain, Vomitting, Excessive diarrhea, Weakness (unilateral) Patient Instructions During this hospitalization you were treated for a viral gastroenteritis ( Rotavirus) and possible urinary tract infection. You can continue to treat symptomatically and eat your regular diet as you tolerate. Follow-up plan You should follow up with your primary care physician, Dr. Jovana Estrada, to ensure you fully improve. Follow-up Provider: Jovana Estrada MD Follow-up with PCP in: 1 week John Lorenzo MD 02/20/17 1443: Discharge Instructions Attending's Statement The patient was seen and examined together with Dr. Haines on 02/20/2017 and I agree with the history, exam and plan as outlined in the note above. Ziyad Haines DO Feb 20, 2017 09:16 John Lorenzo MD Feb 20, 2017 14:43
[2017-02-20] MEDS: Insulin LISPRO 300 Unit/3 mL Inj SUBQ SCH ×2 (09:34→12:00)
[2017-02-20] MEDS: Fluticasone 0.05% 15 Spray/2 Gm 16 Gm Nasal Spray NASAL SCH (09:35)
--- NOTE | 2017-02-20 11:37 | PCM.DC.MED ---
Discharge Summary Date of Service Feb 20, 2017 Dates of Hospitalization Date of Hospital Admission Feb 15, 2017 at 15:40 Date of Discharge: Feb 20, 2017 Providers: Admitting Physician: Blake Evans MD Primary Care Physician: Jovana Estrada MD Attending Physician: Blake Evans MD Diagnosis at Time of Discharge Diagnosis at Time of Discharge 1. Viral gastroenteritis 2. Acute Kidney Injury on Chronic Kidney Disease 3. Acute Urinary Tract Infection 4. Dehydration 5. Essential Hypertension 6. Diabetes Mellitus Type II 7. Hyperlipidemia Consultations Dr. Vaughn Covarrubias of Infectious Disease Procedures XRay, CTs & MRIs Date of Service: 02/15/17 1208 PROCEDURE: X-RAY ACUTE ABDOMINAL SERIES ([id number]) INDICATIONS: vomiting diarrhea TECHNIQUE: One view chest and two views of the abdomen were acquired. COMPARISON: None. FINDINGS: Surgical changes and devices: None. Chest: There is diffuse interstitial disease. No focal consolidation.. Heart size is normal. No pleural effusions. No pneumoperitoneum. Abdomen: Bowel gas pattern is normal. No suspicious calcifications. Visualized solid organ contours appear normal. Bones: No suspicious bony lesions. IMPRESSION: No bowel obstruction or free air. Dictated by: Aguilra Palma M.D. on 02/15/2017 at 13:17 Brief History Per admit note by Dr. Blake Evans dated 02/15/2017: Patient is a 77 year old female with a past medical history of Essential Hypertension, Diabetes Mellitus Type II, Hyperlipidemia, TIA, Asthma, Chronic Kidney Disease, and GERD. She presents to the ER at [facility] complaining of diarrhea for the last day or so. She has also been experiencing significant nausea and vomiting. She has been unable to tolerate any PO for a day and a half now. She has been having up to 15 watery bowel movements per day. Pt does complain of some mild abdominal cramping. Pt denies any recent sick contacts. Pt has not had any antibiotics recently. No other complaints or concerns at this time. Hospital Course Patient is a 77 year old female with essential hypertension, Diabetes Mellitus Type II, Hyperlipidemia, TIA, Asthma, Chronic Kidney Disease, and GERD presenting with diarrhea, nausea and vomiting, and admitted for viral gastroenteritis. 1. Viral gastroenteritis. Present on admission. Improving - Stool positive for Epec and Rotavirus A - Patient received IV fluids and anti-emetics - Infectious Disease was consulted and determined EPEC is of uncertain significance and may be a false positive - Patient able to tolerate po, and her diarrhea improved by day of discharge 2. Acute Kidney Injury on CKD. Present on admission. Improving - Likely secondary to dehydration and diarrhea from above - Patient received IV fluids with improvement in creatinine 3. Acute UTI. Present on admission. Resolved - Urine culture positive for E. Coli ESBL - Infectious Disease was consulted and single dose fosfomycin was given as treatment 4. Dehydration. Present on admission. Resolved - Secondary to diarrhea and vomiting - Resolved with IV fluids as mentioned above 5. Essential Hypertension, chronic. Present on admission - Home antihypertensive regimen was continued during the hospitalization - amlodipine to 10 mg PO daily and labetalol 300 mg PO BID 6. Diabetes Mellitus Type II, chronic. Present on admission - Patient was placed on a correctional low dose insulin Lispro during hospitalization 7. Hyperlipidemia, chronic. Present on admission - Patient was continued on her home statin therapy Exam Vital Signs (Last) Date Time Temp Pulse Resp B/P Pulse Ox O2 Delivery O2 Flow Rate FiO2 02/20/17 08:13 35.5 79 18 138/67 97 Room Air Exam General: Patient sitting upright in bed. No acute distress, well-developed, well -nourished, appropriately interactive HEENT: Normocephalic, atraumatic. Oropharynx free of erythema and cobble stoning with moist mucosa. Neck: Supple Cardiovascular: Regular rate and rhythm with no murmurs, rubs, or gallops appreciated Pulmonary: Clear to auscultation bilaterally with no crackles, wheezes, or rhonchi. Normal respiratory effort with no use of accessory muscles. Abdomen: Bowel tones present. Soft, nontender, nondistended. Extremities: No clubbing, cyanosis, edema, or lymphadenopathy appreciated. Skin: Normal temperature, turgor, and texture; no rash, ulcers, or subcutaneous nodules appreciated. Neurological: Cranial nerves grossly intact. Psychiatric: Normal mood and affect. Alert and oriented to person, place, and time. Test 02/15/17 12:30 02/15/17 14:52 02/15/17 15:28 02/16/17 04:38 Metamyelocytes % 2% (0-0) Myelocytes % 4% (0-0) Prothrombin Time 10.8sec (8.1-12.5) Prothromb Time International Ratio 1.01ratio Lactic Acid Level 0.6mmol/L (0.4-2.0) BUN/Creatinine Ratio 16.21 (7-24) Band Neutrophils % 2% (1-5) Magnesium Level 2.4mg/dL (1.6-2.6) Procalcitonin 0.13ng/mL (0.00-0.08) Test 02/16/17 10:00 02/18/17 05:10 02/20/17 04:50 Urine Color Yellow (YELLOW) Urine Appearance Hazy (CLEAR,HAZY) Urine pH 5.5 (5.0-8.0) Urine Specific [place] 1.010 (1.003-1.035) Urine Protein Tracemg/dL (NEG,TRACE) Urine Glucose (UA) Negativemg/dL (NEGATIVE) Urine Ketones Negativemg/dL (NEGATIVE) Urine Occult Blood Trace (NEGATIVE) Urine Nitrite Positive (NEGATIVE) Urine Bilirubin Negative (NEGATIVE) Urine Urobilinogen Normalmg/dL (NORMAL) Urine Leukocyte Esterase Negative (NEGATIVE) Urine RBC 0-2/hpf (0-2) Urine WBC 6-10/hpf (0-5) Urine Epithelial Cells Few/hpf (NONE-MOD) Urine Crystals None seen (NONE SEEN) Urine Bacteria Many/hpf (NONE-FEW) Urine Hyaline Casts None/lpf (NONE) Urine Granular Casts None seen (NONE SEEN) Urine Waxy Casts None seen (NONE SEEN) Urine Red Blood Cell Casts None seen (NONE SEEN) Urine White Blood Cell Casts None seen (NONE SEEN) Urine Mucus None seen (None Seen) Urine Trichomonas None seen (NONE SEEN) Urine Yeast None (NONE SEEN) Urinalysis Comment None Urine Culture Reflexed Indicated White Blood Count 8.8th/mm3 (3.8-10.1) Red Blood Count 3.68mil/mm3 (3.90-5.20) Hemoglobin 10.1g/dL (12.0-15.6) Hematocrit 32.5% (35.0-46.0) Mean Corpuscular Volume 88.3fL (81-100) Mean Corpuscular Hemoglobin 27.4pg (27.0-35.0) Mean Corpuscular Hemoglobin Concent 31.1% (32.0-37.0) Red Cell Distribution Width 13.6% (12.3-15.4) Platelet Count 259bil/L (150-400) Neutrophils (%) (Auto) 63.4% (40-74) Lymphocytes (%) (Auto) 21.1% (14-46) Monocytes (%) (Auto) 9.2% (4-12) Eosinophils (%) (Auto) 5.4% (0-5) Basophils (%) (Auto) 0.2% (0-3) Sodium Level 144mEq/L (134-144) Potassium Level 3.8mEq/L (3.5-5.2) Chloride Level 113mEq/L (97-108) Carbon Dioxide Level 17mmol/L (18-29) Blood Urea Nitrogen 12mg/dL (8-27) Creatinine 1.17mg/dL (0.57-1.00) Estimat Glomerular Filtration Rate 65mL/min (>59) Glucose Level 142mg/dL (60-99) Calcium Level 8.8mg/dL (8.5-10.1) Total Bilirubin 0.2mg/dL (0.0-1.2) Aspartate Amino Transf (AST/SGOT) 23U/L (0-50) Alanine Aminotransferase (ALT/SGPT) 26U/L (0-32) Alkaline Phosphatase 88U/L (25-165) Total Protein 6.4g/dL (6.4-8.4) Albumin 3.4g/dL (3.4-5.0) Discharge Medications Discharge Medications Amlodipine (Amlodipine) 5 Mg Tablet 5 MG PO BID (Reported) Atorvastatin (Lipitor) 10 Mg Tab 10 MG PO HS (Reported) Cholecalciferol (Vitamin D3) (Vitamin D3) 2,000 Unit Capsule 2,000 UNIT PO DAILY (Reported) Clopidogrel (Clopidogrel) 75 Mg Tablet 75 MG PO DAILY Prescribed by: GERTRUDE JACOB MD Ferrous Sulfate (Ferrous Sulfate) 324 Mg Tablet.dr 324 MG PO DAILY (Reported) Fluticasone Propionate (Fluticasone Propionate Nasal) 16 Gm [place].susp 2 SPRAY NS Morning & Noon (Reported) Gabapentin (Gabapentin) 100 Mg Capsule 100-200 MG PO HS (Reported) Insulin Glargine (Lantus U100 Insulin Vial) 100 Unit/Ml Vial 15 UNIT SUBQ BIDWM (Reported) Labetalol (Labetalol) 300 Mg Tablet 300 MG PO TID (Reported) Montelukast (Montelukast) 10 Mg Tablet 10 MG PO HS (Reported) Pantoprazole DR (Pantoprazole DR) 40 Mg Tablet.dr 40 MG PO DAILY (Reported) Ranitidine (Ranitidine) 150 Mg Capsule 150 MG PO BID (Reported) As needed Albuterol HFA (Proair HFA) 8.5 Gm Hfa.aer.ad 2 PUFFS INHALATION TID PRN PRN For Shortness of Breath (Reported) Ipratropium [place] (Atrovent HFA) 200 Puff/12.9 Gm Inhaler 2 PUFF INH BID PRN PRN For Shortness of Breath (Reported) Loperamide (Loperamide) 2 Mg Capsule 2 MG PO DAILY PRN PRN For Diarrhea or Loose Stool (Reported) Ondansetron ODT (Zofran ODT) 4 Mg Tablet 4 MG PO Q4H PRN PRN For Nausea Prescribed by: RADHA DAUGHERTY, DO Additional med instructions Please continue to take your home medications. Take them as directed. Followup Plan Disposition: home Follow-up plan You should follow up with your primary care physician, Dr. Jovana Estrada, to ensure you fully improve. Discharge Diet: Heart Healthy, Diabetic Discharge Activity: Home Health Phyical Therapy Patient Instructions During this hospitalization you were treated for a viral gastroenteritis ( Rotavirus) and possible urinary tract infection. You can continue to treat symptomatically and eat your regular diet as you tolerate. Follow-up Provider: Jovana Estrada MD Follow-up with PCP in: 1 week Time spent 35 minutes reviewing chart and coordinating discharge Attending Statement The patient was seen and examined together with Dr. Haines on 02/20/2017 and I agree with the discharge summary outlined in the note above. copies to: Jovana Estrada MD, Bob A DO Feb 20, 2017 11:37 John Lorenzo MD Feb 20, 2017 14:44
[2017-02-20 12:47] VITALS: BP 174/77; PULSE 72; RESP 18; O2SAT 97
--- NOTE | 2017-02-20 13:58 | NUR ---
Discharge All DC education and instructions given to patient with family present. Patient and family verbalize understanding of all medications and follow up plan of care. DC packet and Care notes reviewed with patient and family. IV access DC'd intact.
== END 2017-02-20 14:36 | disposition home or self-care (01) | DRG 392 ==
LOC: SED 11:40 → OSC 15:40
PROVIDERS: ADMIT Family Medicine; ATTEND Family Medicine
DX: A08.0 Rotaviral enteritis (principal); N39.0 Urinary tract infection, site not specified; N17.9 Acute kidney failure, unspecified; I10 Essential (primary) hypertension; E78.5 Hyperlipidemia, unspecified; K21.9 Gastro-esophageal reflux disease without esophagitis; E11.9 Type 2 diabetes mellitus without complications; J45.909 Unspecified asthma, uncomplicated; Z16.19 Resistance to other specified beta lactam antibiotics; E86.0 Dehydration; Z79.4 Long term (current) use of insulin; Z79.51 Long term (current) use of inhaled steroids

== ENCOUNTER 2017-05-26 14:45 | Inpatient (IN) | payer MEDICARE ==
[~2017-05-26] VITALS: Ht 154.9 cm; Wt 68.3 kg
[~2017-05-26 14:45] MED LIST changes: -ASPI-973 PO; -CHOL100043 PO; +CHOL200047 PO; -OMEP20CA11 PO; -ONDA8TAB10 SL; +PANT40TA3 PO; +RANI150C4 PO
[2017-05-26 14:48] VITALS: BP 93/50; PULSE 72; RESP 16; O2SAT 98
--- NOTE | 2017-05-26 16:35 | ED.REPORT ---
HPI-NVD Date of Service May 26, 2017 ED Provider: History of Present Illness: diarrhea times 4 days, worse today and stomach pain that started with the diarrhea. vomiting 3 times today. last urinate just [employer]. primary care is priscila estrada. diabetic. asthma. denies blood in stool or vomit. Nursing Notes Stated Complaint: NOT FEELING WELL, DIARRHEA, DIZZY, HEADACHE Chief Complaint: Female Abdominal Pain Nursing Notes Reviewed: Yes Allergies: Coded Allergies: pioglitazone (Verified Allergy, Intermediate, Nausea,Vomiting, 05/26/17) rosiglitazone (Verified Allergy, Intermediate, Nausea,Vomiting, 05/26/17) amoxicillin (Verified Allergy, Mild, itching, 05/26/17) ciprofloxacin HCl (Verified Allergy, Mild, Rash,Itching,, 05/26/17) per PCP record from [facility] clavulanic acid (Verified Allergy, Mild, itching, 05/26/17) erythromycin base (Verified Allergy, Mild, unknown, 05/26/17) per PCP record at [facility] morphine (Verified Adverse Reaction, Intermediate, Nausea,Vomiting, ) Scheduled Amlodipine (Amlodipine) 5 Mg Tablet 10 MG PO DAILY Atorvastatin (Lipitor) 10 Mg Tab 10 MG PO HS Cholecalciferol (Vitamin D3) (Vitamin D3) 2,000 Unit Capsule 2,000 UNIT PO DAILY Clopidogrel (Clopidogrel) 75 Mg Tablet 75 MG PO DAILY Ferrous Sulfate (Ferrous Sulfate) 324 Mg Tablet.dr 324 MG PO DAILY Fluticasone Propionate (Fluticasone Propionate Nasal) 16 Gm [place].susp 2 SPRAY NS Morning & Noon Gabapentin (Gabapentin) 100 Mg Capsule 100-200 MG PO HS Insulin Glargine (Lantus U100 Insulin Vial) 100 Unit/Ml Vial 15 UNIT SUBQ BIDWM Labetalol (Labetalol) 300 Mg Tablet 300 MG PO TID Montelukast (Montelukast) 10 Mg Tablet 10 MG PO HS Pantoprazole DR (Pantoprazole DR) 40 Mg Tablet.dr 40 MG PO DAILY Ranitidine (Ranitidine) 150 Mg Capsule 150 MG PO BID Scheduled PRN Albuterol HFA (Proair HFA) 8.5 Gm Hfa.aer.ad 2 PUFFS INHALATION TID PRN PRN For Shortness of Breath Beclomethasone Dipropionate (Qvar) 8.7 Gm Aer.w.adap 2 PUFF INHALATION DIRECTED PRN PRN For Wheezing Ipratropium [place] (Atrovent HFA) 200 Puff/12.9 Gm Inhaler 2 PUFF INH BID PRN PRN For Shortness of Breath Loperamide (Loperamide) 2 Mg Capsule 2 MG PO DAILY PRN PRN For Diarrhea or Loose Stool Ondansetron ODT (Zofran ODT) 4 Mg Tablet 4 MG PO Q4H PRN PRN For Nausea General Time Seen by MD: 16:34 Chief Complaint Nausea, Vomiting, Diarrhea, Abd pain, intermittent Hx Obtained From: Patient Onset Occurred: 4 days ago Symptom Duration: Since onset Vomiting: Vomiting 4-6 episodes Diarrhea: Diarrhea 4-6 episodes Associated with: Reports: Abdominal pain Past Medical History Past Medical History h/o vertigo Severe HTN UTI Atypical pneumonia recent [place] Reports: Asthma, Diabetes mellitus, GERD, Hyperlipidemia, Hypertension Reports: Kidney disease, Urinary tract infection Past Surgical History Reports: Appendectomy, Cholecystectomy, Hysterectomy Family History noncontributory Smoking History Never Smoker Social History Alcohol Use: Denies alcohol use Other Social History: Good social support, , Local resident Occupation lives with and son, no work or school 02/15/2017 Ambulatory Status Independent Review of Systems Basic Review of Systems Eyes: Vision NL, No discharge Hematologic: No bleeding, No bruising Psychiatric: Normal thought content Physical Exam Initial Vital Signs Vital Signs (First) Date Time Temp Pulse Resp B/P Pulse Ox O2 Delivery O2 Flow Rate FiO2 05/26/17 14:48 36.4 72 16 93/50 98 Room Air Initial VS: Reviewed, Vital signs normal Head / Eyes: Atraumatic, Normocephalic, PERRL ENT: Mucous membranes moist, Conjunctiva normal, No scleral icterus Neck: Supple, Non-tender, Full range of motion Respiratory: Breath sounds normal, Clear to auscultation, No respiratory distress Cardiovascular: Regular rate & rhythm, Heart sounds normal, Intact distal pulses Back: No CVA tenderness Lymphatic: No lymphadenopathy Extremities: Vascular intact, Neuro intact, No swelling, No tenderness Skin: Warm, Dry, No cyanosis Neurologic: Alert, Oriented, Nonfocal Psychiatric: Mood/affect normal, Behavior normal, Normal thought content General/Constitutional: Awake, Alert, No acute distress, Well appearing, Well developed, Well hydrated, Well nourished, Cooperative, Not toxic appearing Abdomen: Atraumatic, Soft, Non-tender, McBurney's non-tender, No guarding, No rebound, BS normoactive (decrease bowel tones), No distention, No hernia, No palpable mass, No pulsatile mass ENT: Atraumatic, Airway patent, Mucous membranes moist, Pharynx NL Respiratory / Chest: Atraumatic, Breath sounds NL, Breath sounds = bilat, No respiratory distress Cardiovascular: Heart rate NL, Regular rhythm, Heart sounds NL, No gallop Interpretation & Diagnostics Interpretation & Diagnostics: TECHNIQUE: Noncontrast 5 mm thick sections acquired from the diaphragms to the symphysis. 5 mm thick coronal and sagittal reformats were then performed. For radiation dose reduction, the following was used: automated exposure control, adjustment of mA and/or kV according to patient size. COMPARISON: [facility], CT, CT ABD PELVIS W CON, 10/20/2016, 10:14. FINDINGS: Image quality: Excellent. Lung bases: No change in mild bibasilar interstitial pulmonary opacification. Lung bases are otherwise clear. Heart size is normal. Urinary system: Both kidneys are normal in size. No kidney stones. No hydronephrosis or perinephric fat stranding. Both ureters appear non-dilated throughout their expected courses. Bladder wall thickness is normal; no calcified bladder stones. Moderate gas within the urinary bladder is present. Other solid organs: Liver and spleen are normal in size. Gallbladder is surgically absent. Pancreas is normal in contours. No adrenal nodules. Peritoneum and bowel: No change and small hiatal hernia. Unenhanced bowel loops demonstrate normal wall thickness and caliber. No free fluid or air. Nodes and vessels: No retroperitoneal or mesenteric adenopathy by size criteria. Aorta and inferior vena cava are normal in caliber. Abdominal wall: No change in 15 mm diameter fat-containing umbilical hernia. Pelvis: No free pelvic fluid. No inguinal hernias or adenopathy. Bones: No suspicious bony lesions. 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 No vertebral body compression fractures. IMPRESSION: 1. No evidence of urinary tract calcification, nor obstruction. 2. Gas within the urinary bladder, which may represent recent catheterization. Correlation recommended. If there is no history of recent bladder catheterization, colovesical fistula should be considered. 3. Appendix not seen. No evidence of appendicitis. 4. Bilateral pars interarticularis defects. 5. Small hiatal hernia. Dictated by: Alix Polo M.D. on 05/26/2017 at 18:57 Approved by: Alix Polo M.D. on 05/26/2017 at 19:00 Lab Results Interpretation Result Diagram: 05/26/17 1705 05/26/17 2155 Test 05/26/17 17:05 05/26/17 17:09 White Blood Count 5.4th/mm3 (3.8-10.1) Red Blood Count 3.94mil/mm3 (3.90-5.20) Hemoglobin 10.7g/dL (12.0-15.6) Hematocrit 33.4% (35.0-46.0) Mean Corpuscular Volume 84.8fL (81-100) Mean Corpuscular Hemoglobin 27.2pg (27.0-35.0) Mean Corpuscular Hemoglobin Concent 32.0% (32.0-37.0) Red Cell Distribution Width 13.6% (12.3-15.4) Platelet Count 257bil/L (150-400) Neutrophils (%) (Auto) 55.8% (40-74) Lymphocytes (%) (Auto) 22.7% (14-46) Monocytes (%) (Auto) 16.8% (4-12) Eosinophils (%) (Auto) 3.3% (0-5) Basophils (%) (Auto) 0.7% (0-3) Sodium Level 133mEq/L (134-144) Chloride Level 103mEq/L (97-108) Carbon Dioxide Level 13mmol/L (18-29) Blood Urea Nitrogen 43mg/dL (8-27) Creatinine 2.73mg/dL (0.57-1.00) Estimat Glomerular Filtration Rate 24mL/min (>59) Glucose Level 124mg/dL (60-99) Calcium Level 9.2mg/dL (8.5-10.1) Magnesium Level 1.6mg/dL (1.6-2.6) Total Bilirubin 0.3mg/dL (0.0-1.2) Aspartate Amino Transf (AST/SGOT) 52U/L (0-50) Alanine Aminotransferase (ALT/SGPT) 53U/L (0-32) Alkaline Phosphatase 145U/L (25-165) Total Protein 7.9g/dL (6.4-8.4) Albumin 3.9g/dL (3.4-5.0) Lipase 37U/L (13-60) Hold [place] Top Tube Received (Received) Lactic Acid Level 1.0mmol/L (0.4-2.0) Troponin T < 0.010ug/L (0.0-0.011) Lab Results Interpretation: awaiting stool and urine samples X-Ray Chest Interpretation Chest Xray Interpretation: ROCEDURE: X-RAY CHEST, TWO VIEWS ([id number]) INDICATIONS: abd pain, vomiting TECHNIQUE: 2 views of the chest were acquired. COMPARISON: [facility], CR, XR CHEST 2VW, 10/06/2016, 10:36. [facility], CR, XR CHEST 2VW, 07/30/2016, 13:31. [facility], CR, XR CHEST 2VW, 05/06/2016, 14:31. [facility], CR, XR ABD ACUTE SERIES 3VW, 02/15/2017, 12:23. FINDINGS: Surgical changes and devices: None. Lungs and pleura: No pleural effusions or pneumothorax. Mild basilar predominant interstitial pulmonary opacity is unchanged. Lungs are otherwise clear. Mediastinum: Mediastinal contours are normal. Heart size is normal. Bones and chest wall: No suspicious bony abnormalities. Soft tissues appear unremarkable. IMPRESSION: No acute process. Dictated by: Alix Polo M.D. on 05/26/2017 at 17:14 Approved by: Alix Polo M.D. on 05/26/2017 at 17:14 Re-Eval/Medical Decision Med Decision/Clinical Course 77 year old female presents to the ER for 4 days hx of vomiting and diarrhea with abd pain. Patient is diabetic and has asthma. Labs indicate acute renal injury. Fluids are running, awaiting urine and stool samples. Will not treat mild elevation in potassium, EKG is normal and patient is getting fluid and will be getting insulin later. Discussed with Dr. Merida will admit. No sign of appendicitis or acute abd. Discharge & Departure Impression: Primary Impression: Acute kidney injury Additional Impressions: Nausea & vomiting Vomiting type: unspecified Diarrhea Diarrhea type: unspecified type Qualified Code: R19.7 - Diarrhea, unspecified Type II diabetes mellitus Disposition: ADMITTED TO HOSPITAL Referrals: Jovana Estrada MD (PCP) EDSupervising Provider for APC: Ryder Merida MD Attending Statement I saw the patient with the LAST REPAIRER HELPER. I agree with the plan and findings as documented above. Has an ROLA and hyperkalemia w/o acute changes on EKG. Plan for admission as per above. copies to: Jovana Estrada MD, Sue ARNP May 26, 2017 16:34 Ryder Merida MD May 26, 2017 18:34 Elvi Navas May 26, 2017 16:34 Ryder Merida MD May 26, 2017 18:34
[2017-05-26] MEDS ORDERED: Ondansetron 2 mg/mL 2 mL Inj IVPUSH ONE (16:45)
[2017-05-26] MEDS ORDERED: HYDROmorphone 0.5 mg/0.5 mL iSecure Syringe IVPUSH ONE (16:45)
[2017-05-26] MEDS ORDERED: 0.9% Sodium Chloride 1,000 ML IV ONE ×2 (16:45→18:35)
[2017-05-26 17:08] LABS: BASOPHILS % (AUTO) 0.7 % (0-3); EOSINOPHILS % (AUTO) 3.3 % (0-5); MONOCYTES % (AUTO) 16.8 % (4-12); Mean Corpuscular Hemoglobin 27.2 pg (27.0-35.0); Mean Corpuscular Volume 84.8 fL (81-100); NEUTROPHILS % (AUTO) 55.8 % (40-74); Platelet Count 257 bil/L (150-400)
--- NOTE | 2017-05-26 17:16 | DRSVH ---
PROCEDURE: X-RAY CHEST, TWO VIEWS ([id number]) INDICATIONS: abd pain, vomiting TECHNIQUE: 2 views of the chest were acquired. COMPARISON: [facility], CR, XR CHEST 2VW, 10/06/2016, 10:36. [facility], C R, XR CHEST 2VW, 07/30/2016, 13:31. [facility], CR, XR CHEST 2VW, 05/06/2016, 14:31. [facility], CR, XR ABD ACUTE SERIES 3VW, 02/15/2017, 12:23. FINDINGS: Surgical changes and devices: None. Lungs and pleura: No pleural effusions or pneumothorax. Mild basilar predominant interstitial pulmon tommie opacity is unchanged. Lungs are otherwise clear. Mediastinum: Mediastinal contours are normal. Heart size is normal. Bones and chest wall: No suspicious bony abnormalities. Soft tissues appear unremarkable. IMPRESSION: No acute process. Dictated by: Alix Polo M.D. on 05/26/2017 at 17:14 Approved by: Alix Polo M.D. on 05/26/2017 at 17:14
[2017-05-26 18:12] VITALS: BP 145/56; PULSE 62; O2SAT 97
[2017-05-26 18:21] LABS: Magnesium 1.6 mg/dL (1.6-2.6)
--- NOTE | 2017-05-26 19:02 | DRSVH ---
PROCEDURE: CT KUB ([id number]) INDICATIONS: abd apin TECHNIQUE: Noncontrast 5 mm thick sections acquired from the diaphragms to the symphysis. 5 mm thick coronal an d sagittal reformats were then performed. For radiation dose reduction, the following was used: aut omated exposure control, adjustment of mA and/or kV according to patient size. COMPARISON: [facility], CT, CT ABD PELVIS W CON, 10/20/2016, 10:14. FINDINGS: Image quality: Excellent. Lung bases: No change in mild bibasilar interstitial pulmonary opacification. Lung bases are otherwi se clear. Heart size is normal. Urinary system: Both kidneys are normal in size. No kidney stones. No hydronephrosis or perinephri c fat stranding. Both ureters appear non-dilated throughout their expected courses. Bladder wall th ickness is normal; no calcified bladder stones. Moderate gas within the urinary bladder is present. Other solid organs: Liver and spleen are normal in size. Gallbladder is surgically absent. Pancrea s is normal in contours. No adrenal nodules. Peritoneum and bowel: No change and small hiatal hernia. Unenhanced bowel loops demonstrate normal wa ll thickness and caliber. No free fluid or air. Nodes and vessels: No retroperitoneal or mesenteric adenopathy by size criteria. Aorta and inferior vena cava are normal in caliber. Abdominal wall: No change in 15 mm diameter fat-containing umbilical hernia. Pelvis: No free pelvic fluid. No inguinal hernias or adenopathy. Bones: No suspicious bony lesions. 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 No ve rtebral body compression fractures. IMPRESSION: 1. No evidence of urinary tract calcification, nor obstruction. 2. Gas within the urinary bladder, which may represent recent catheterization. Correlation recommende d. If there is no history of recent bladder catheterization, colovesical fistula should be considered . 3. Appendix not seen. No evidence of appendicitis. 4. Bilateral pars interarticularis defects. 5. Small hiatal hernia. Dictated by: Alix Polo M.D. on 05/26/2017 at 18:57 Approved by: Alix Polo M.D. on 05/26/2017 at 19:00
[2017-05-26 19:25] VITALS: BP 147/45; PULSE 74; O2SAT 97
[2017-05-26] MEDS ORDERED: Alum-Mag Hydrox-Simeth 30 mL Suspension PO PRN (19:30)
[2017-05-26] MEDS ORDERED: Ondansetron 2 mg/mL 2 mL Inj IVPUSH PRN (19:30)
[2017-05-26] MEDS ORDERED: Polyethylene Glycol (PEG) 17 Gm Powder PO PRN (19:30)
--- NOTE | 2017-05-26 19:41 | PCM.HPMED ---
Subjective Date of Service May 26, 2017 Primary Provider: Admitting Physician: Primary Care Physician: Jovana Estrada MD Attending Physician: Chief Complaint: Diarrhea and vomiting for 4 days History of Present Illness: Jessica Hunter is a 77-year-old female with past medical issues significant for [place], TIA, diabetes mellitus, hyperlipidemia, hypertension, and cholecystectomy in October 2016 who presents with ongoing diarrhea since cholecystectomy. Patient is Wallisian-speaking and was in the bathroom for a significant portion of my history due to ongoing diarrhea. History was therefore obtained from both the patient, , and daughter. Patient was admitted in February for diarrhea and stool was positive for rotavirus. Patient received supportive therapy and symptomatically improved. Patient states that diarrhea has continued since this hospitalization waxing and waning with significant worsening over the last 4 days. Patient has had poor oral intake as this typically causes diarrhea and vomiting. Patient also notes diffuse abdominal pain with no radiation. She states it feels like a bloating, gassy feeling. Patient had recent antibiotic use with Bactrim started on 05/10/17. Patient's believes she has had a colonoscopy in the past but I found no records to support this. Patient has also been taking Tylenol daily to help with her abdominal pain. Patient has been trialed on H2 blockers and proton pump inhibitors with no improvement. In the ED vitals were temperature 36.4, pulse 72, respiratory rate 16, blood pressure 93/50, pulse oximetry 98% on room air. Initial labs significant for potassium of 6.0,, BUN 43, creatinine 2.73, lactic acid 1.0, AST 52, ALT 53. EKG normal sinus rhythm with minimally peaked T waves in the anterior leads. In the ED patient was given 2 L of fluid along with Zofran. Review of Systems: Comprehensive review of systems was conducted with the patient and found to be negative except as noted above in HPI. Allergies Coded Allergies: pioglitazone (Verified Allergy, Intermediate, Nausea,Vomiting, 05/26/17) rosiglitazone (Verified Allergy, Intermediate, Nausea,Vomiting, 05/26/17) amoxicillin (Verified Allergy, Mild, itching, 05/26/17) ciprofloxacin HCl (Verified Allergy, Mild, Rash,Itching,, 05/26/17) per PCP record from [facility] clavulanic acid (Verified Allergy, Mild, itching, 05/26/17) erythromycin base (Verified Allergy, Mild, unknown, 05/26/17) per PCP record at [facility] morphine (Verified Adverse Reaction, Intermediate, Nausea,Vomiting, ) Home Medications Albuterol Amlodipine 10 mg daily Atorvastatin 10 mg daily Atrovent 2 puffs 4 times a day Clopidogrel 75 mg daily Ferrous sulfate 324 mg daily Gabapentin 900 mg nightly Labetalol 300 mg 3 times a day Lantus 15 units twice a day Loperamide 2 mg when necessary Meclizine when necessary Zofran when necessary Pantoprazole 40 mg daily Qvar twice a day Ranitidine 150 mg twice a day PMH Severe Hypertension Chronic kidney disease stage IV Hyperlipidemia Diabetes mellitus type II Asthma TIA Surgical History Cystectomy, hysterectomy, appendectomy Family History Siblings - Diabetes Mellitus Parents when patient was 4 years old No history of cancer or heart disease Social History Hx Alcohol Use: No Hx Substance Use: No Hx Tobacco Use: No Smoking Status: Never Smoker Living Arrangement: with Family Exam Vital Signs Vital Sign - Last Date Time Temp Pulse Resp B/P Pulse Ox O2 Delivery O2 Flow Rate FiO2 05/26/17 19:25 74 147/45 97 Room Air 05/26/17 14:48 36.4 16 Exam General: No acute distress, well-developed, well-nourished, appropriately interactive HEENT: Normocephalic, atraumatic. External ears without defect. Pupils equal, round, and reactive to light and accommodation. Anicteric sclerae, moist conjunctivae, and no lid lag. Oropharynx free of erythema and cobble stoning with moist mucosa. Neck: Supple with full range of motion. No jugular venous distension. No bruits. No lymphadenopathy or thyromegaly. Cardiovascular: Regular rate and rhythm with no murmurs, rubs, or gallops appreciated Pulmonary: Clear to auscultation bilaterally with no crackles, wheezes, or rhonchi. Normal respiratory effort with no use of accessory muscles. Abdomen: Bowel tones present. Soft, nontender, nondistended. No hepatosplenomegaly or masses appreciated. Extremities: No clubbing, cyanosis, edema, or lymphadenopathy appreciated. Skin: Normal temperature, turgor, and texture; no rash, ulcers, or subcutaneous nodules appreciated. Neurological: Cranial nerves grossly intact. Normal muscle strength, tone, and bulk. Reflexes, coordination, and sensory function within normal limits. No known gait impairment. Psychiatric: Normal mood and affect. Alert and oriented to person, place, and time. Lab and Diagnostics Labs AST 52 ALT 53 Lactic acid 1 Troponin less than 0.010 Result Diagram: 05/26/17 1705 05/26/17 1705 Microbiology Blood, stool, and urine cultures obtained and sent. X-Rays, CTs and MRIs CT KUB IMPRESSION: 1. No evidence of urinary tract calcification, nor obstruction. 2. Gas within the urinary bladder, which may represent recent catheterization. Correlation recommended. If there is no history of recent bladder catheterization, colovesical fistula should be considered. 3. Appendix not seen. No evidence of appendicitis. 4. Bilateral pars interarticularis defects. 5. Small hiatal hernia. Dictated by: Alix Polo M.D. on 05/26/2017 at 18:57 Approved by: Alix Polo M.D. on 05/26/2017 at 19:00 X-RAY CHEST, TWO VIEWS IMPRESSION: No acute process. Dictated by: Alix Polo M.D. on 05/26/2017 at 17:14 Approved by: Alix Polo M.D. on 05/26/2017 at 17:14 12-lead ECG EKG on 05/26/17: Sinus rhythm with rate of 68 Minimally peaked T waves in anterior leads Cardiac Echo Impressions Echocardiogram Report Interpretation Summary The ejection fraction is estimated to be 60-65%. There is moderate mitral annular calcification. There is trace tricuspid regurgitation. The right ventricular systolic pressure is estimated at 50 mmHg assuming a right atrial pressure of 3 mm Hg. Electronically signed by: Clay De La Torre on Reading Physician:01/06/2017 11:43 AM Assessment & Plan Jessica Hunter is a 77-year-old female with past medical issues significant for [place], TIA, diabetes mellitus, hyperlipidemia, hypertension, and cholecystectomy in October 2016 who presents with ongoing diarrhea since cholecystectomy. Admitted for acute on chronic kidney injury, hyperkalemia, and ongoing diarrhea. Diarrhea, present on admission, active. - Etiology possibly secondary to cholecystectomy in October versus viral etiology versus recent antibiotic use. - Stool PCR ordered and sent from the ED. - 2 L of IV fluids given in the ED. Continue at 150 ml/hr. - Advance diet as tolerated. - Closely monitor electrolytes and fluid status. - Repeat BMP in the morning. Hyperkalemia, present on admission, active. - Potassium 6.0 on admission. - Repeat potassium pending as patient has had no intervention has been 4 hours since last check. - If potassium remains elevated will likely treat with insulin as patient will need her daily dose of Lantus. Acute on chronic kidney injury, present on admission, active. - Per outpatient records BUN and creatinine were 28 and 1.45 on 03/20/17. - On presentation to ED BUN was 43 and creatinine 2.73. - Likely secondary to ongoing diarrhea and vomiting. - IV fluids as above. - Day to consider renal ultrasound. - Urinalysis and culture pending. CT finding of gas within the urinary bladder, present on admission, active. - Patient with no recent history of catheterization. - Consider further workup including cystogram. Hypertension, present on admission, active. - Continue home regimen of amlodipine 5 mg twice a day. - Held home regimen of labetalol 300 mg 3 times a day. Day team to reassess in the morning if appropriate to restart.. Diabetes mellitus type II insulin using, present on admission, active. - Home regimen includes glargine 15 units twice a day. Will reduce to 10 units once a day. - Lispro low-dose correctional scale. - Gabapentin 100 200 mg nightly for neuropathy. History of TIA, present on admission, ongoing. - Continue clopidogrel 75 mg daily. Asthma, present on admission, chronic. - Continue home inhalers including Atrovent and albuterol. PRN Medications - Acetaminophen as needed for mild pain/fever/headache - Bowel regimen as needed - Antiemetic as needed Patient is admitted under observation status with expected length of stay less than 2 midnights due to severity of presenting symptoms, risk of adverse event, and complexity of treatment plan. GI Prophylaxis: Not indicated Resuscitation Status: Limited Interventions (DO NOT INTUBATE) Limited Interventions: Compressions, Cardioversion/Defibrillation Attending Statement The patient was seen and examined together with Dr. Ambrocio on 05/26 and I agree with the history, exam and plan as outlined in the note above. Colonoscopy should be considered due to recurrent diarrhea. Patient has recent antibiotics exposure and C difficile testing pending. ELIEZER AMBROCIO DO May 26, 2017 19:41 Prabhu Morales MD May 26, 2017 22:53
[2017-05-26 20:25] VITALS: BP 147/45; PULSE 74; RESP 16; O2SAT 97
[2017-05-26 20:55] LABS: APPEARANCE,URINE HAZY (CLEAR,HAZY); COLOR,URINE YELLOW (YELLOW); OCCULT BLOOD,URINE TRACE (NEGATIVE); UROBILINOGEN,URINE NORMAL (NORMAL)
[2017-05-26 20:56] VITALS: BP 169/63; PULSE 79; RESP 18; O2SAT 98
[2017-05-26 21:20] VITALS: PULSE 84
[2017-05-26] MEDS ORDERED: Albuterol 2.5 mg/3 mL Inhalation Solution NEB PRN (21:51)
[2017-05-26] MEDS ORDERED: Ipratropium 0.02% 0.5 mg/2.5 mL Inhalation Solution NEB PRN (21:56)
[2017-05-26] MEDS ORDERED: Glucose 40% Oral Gel 15 Gm Tube PO PRN (22:05)
[2017-05-26] MEDS: 0.9% Sodium Chloride 1,000 ML IV SCH (22:11)
[2017-05-27] VITALS (8 sets, daily range): BP systolic 143–185; BP diastolic 57–70; PULSE 72–84; RESP 14–19; O2SAT 96–99
[2017-05-27] MEDS ORDERED: AMLO5TAB2 PO (00:46)
[2017-05-27] MEDS ORDERED: BECL8.7A6 INHALATION (00:50)
[2017-05-27] MEDS: 0.9% Sodium Chloride 1,000 ML IV SCH ×3 (04:17→17:10)
[2017-05-27 07:32] LABS: Mean Corpuscular Hemoglobin 26.7 pg (27.0-35.0); Mean Corpuscular Volume 87.2 fL (81-100)
[2017-05-27 07:50] LABS: Magnesium 1.5 mg/dL (1.6-2.6); Phosphorus 3.9 mg/dL (2.5-4.9)
[2017-05-27] MEDS ORDERED: Insulin GLARgine 100 Unit/mL Syringe SUBQ SCH (08:00)
[2017-05-27] MEDS: Insulin LISPRO 300 Unit/3 mL Inj SUBQ SCH ×4 (08:00→19:58)
[2017-05-27] MEDS: Fluticasone 0.05% 15 Spray/2 Gm 16 Gm Nasal Spray NOSTRIL SCH (08:20)
[2017-05-27] MEDS: Insulin GLARgine 100 Unit/mL Syringe SUBQ SCH (08:21)
[2017-05-27] MEDS: Heparin 5,000 Unit/mL Inj SUBQ SCH ×2 (08:21→19:58)
[2017-05-27] MEDS ORDERED: LABETALOL 300 MG PO SCH (08:30)
[2017-05-27] MEDS ORDERED: Magnesium Sulf 2 Gm/50mL Water 2 GM in IV Premix 1 EACH IV ONE (11:10)
--- NOTE | 2017-05-27 11:13 | PCM.PNMED ---
Subjective Date of Service May 27, 2017 Subjective Pt continues to experience intermittent abdominal cramping, feels diarrhea has abated some this morning. Continues to deny fever of chills. Pt endorses hunger , asking about advancing her diet. . Exam Vital Signs Vital Sign - Last Date Time Temp Pulse Resp B/P Pulse Ox O2 Delivery O2 Flow Rate FiO2 05/27/17 10:32 84 05/27/17 08:39 37.1 19 165/66 96 Room Air Intake and Output 05/26/17 05/26/17 05/27/17 Cumulative From/Thru 15:00 23:00 07:00 05/26/17 14:48 - 05/27/17 06:35 Intake Total 2000 ml 200 ml 2200 ml Output Total 550 ml 550 ml Balance 2000 ml -350 ml 1650 ml Intake Oral 200 ml 200 ml IV Total 2000 ml 2000 ml Output Urine Total 550 ml 550 ml # Bowel Movements 2 2 General: Alert, Oriented X3, Cooperative, Mild Distress Mouth: Mucous Membr Moist/[place] Cardiovascular: Regular Rate/Rhythm Abdomen: Other (Mild tednerness difusely, no gaurding. (+)BS) Neurological: Grossly Neurologically Intact IVs and Medications Medications Reviewed: Medications were reviewed in detail Lab and Diagnostics Result Diagram: 05/27/17 0635 05/27/17 0635 Microbiology Blood, stool, and urine cultures obtained and sent. X-Rays, CTs and MRIs CT KUB IMPRESSION: 1. No evidence of urinary tract calcification, nor obstruction. 2. Gas within the urinary bladder, which may represent recent catheterization. Correlation recommended. If there is no history of recent bladder catheterization, colovesical fistula should be considered. 3. Appendix not seen. No evidence of appendicitis. 4. Bilateral pars interarticularis defects. 5. Small hiatal hernia. Dictated by: Alix Polo M.D. on 05/26/2017 at 18:57 Approved by: Alix Polo M.D. on 05/26/2017 at 19:00 X-RAY CHEST, TWO VIEWS IMPRESSION: No acute process. Dictated by: Alix Polo M.D. on 05/26/2017 at 17:14 Approved by: Alix Polo M.D. on 05/26/2017 at 17:14 12-lead ECG EKG on 05/26/17: Sinus rhythm with rate of 68 Minimally peaked T waves in anterior leads Cardiac Echo Impressions Echocardiogram Report Interpretation Summary The ejection fraction is estimated to be 60-65%. There is moderate mitral annular calcification. There is trace tricuspid regurgitation. The right ventricular systolic pressure is estimated at 50 mmHg assuming a right atrial pressure of 3 mm Hg. Electronically signed by: Clay De La Torre on Reading Physician:01/06/2017 11:43 AM Assessment & Plan Jessica Hunter is a 77-year-old female with past medical issues significant for [place], TIA, diabetes mellitus, hyperlipidemia, hypertension, and cholecystectomy in October 2016 who presents with ongoing diarrhea since cholecystectomy. Admitted for acute on chronic kidney injury, hyperkalemia, and ongoing diarrhea. Diarrhea, present on admission, active. - Etiology possibly secondary to cholecystectomy in October versus viral etiology versus recent antibiotic use. - Stool PCR demonstrating presence of multiple pathogens, E.coli sps in addition to 2 viral sps. This is a different E.coli strain from February stool study, Rotavirus present pboth occasions, and january stool study (+) only for Norovirus. - 2 L of IV fluids given in the ED. Continued at 150 ml/hr at this time. - Advance diet as tolerated, now on clears - Closely monitor electrolytes and fluid status. - ID consulted for further consideration - Case discussed w/ GI (DR Morales) however give pt being on Plavix, would have to wait 5-7 days prior to colonoscopy as biopsies would not be possible. - Will consider holding Plavix on discharge if pt stabilizes quickly, may consider prompt out patient FU for colonoscopy. May reconsider in 1-2 days if condition proves refractory Hyperkalemia, present on admission, active. - Potassium 6.0 on admission. - Repeat potassium normalized - Continue to manage blood sugar elevation which likely contributes. Acute on chronic kidney injury, present on admission, active. - Per outpatient records BUN and creatinine were 28 and 1.45 on 03/20/17. - On presentation to ED BUN was 43 and creatinine 2.73. - Likely secondary to ongoing diarrhea and vomiting. - IV fluids as above. - IMproving with hydration - Continue to trend - Urine cx remains pending. CT finding of gas within the urinary bladder, present on admission, active. - Patient with no recent history of catheterization. - Consider further workup including cystogram. Hypertension, present on admission, active. - Continue home regimen of amlodipine 5 mg twice a day. - Held home regimen of labetalol 300 mg 3 times a day. Day team to reassess in the morning if appropriate to restart.. Diabetes mellitus type II insulin using, present on admission, active. - Home regimen includes glargine 15 units twice a day. Will reduce to 10 units once a day. - Lispro low-dose correctional scale. - Gabapentin 100 200 mg nightly for neuropathy. History of TIA, present on admission, ongoing. - Continue clopidogrel 75 mg daily. - May hold if GI procedure / colonoscopy is considered Asthma, present on admission, chronic. - Continue home inhalers including Atrovent and albuterol. Pain Evaluation: Adequate Pain Control GI Prophylaxis: Not indicated Resuscitation Status: Limited Interventions (DO NOT INTUBATE) Limited Interventions: Compressions, Cardioversion/Defibrillation Time spent 30 minutes Lavon Pak DO May 27, 2017 11:13 Lavon Pak DO May 27, 2017 11:13
[2017-05-27] MEDS ORDERED: cefTRIAXone Inj 1,000 MG in Dextrose 5% Minibag Plus 50 ML IV SCH (15:40)
--- NOTE | 2017-05-27 16:53 | NUR ---
No antibiotics Dr. Rock asks that we DO NOT give pt any antibiotics (confirmed by Dr. Covarrubias). This RN will non-admin the current order of ceftriaxone
[2017-05-28] VITALS (10 sets, daily range): BP systolic 156–192; BP diastolic 62–78; PULSE 68–81; RESP 16–20; O2SAT 93–99
--- NOTE | 2017-05-28 06:49 | NUR ---
Uneventful Night Pt slept through the night. BP remains elevated at 172/65 and 178/70. Will pass on to dayshift.
[2017-05-28 06:55] LABS: Magnesium 1.9 mg/dL (1.6-2.6)
[2017-05-28] MEDS: Insulin LISPRO 300 Unit/3 mL Inj SUBQ SCH ×4 (07:54→21:09)
[2017-05-28] MEDS: Insulin GLARgine 100 Unit/mL Syringe SUBQ SCH (08:30)
[2017-05-28 09:25] LABS: Mean Corpuscular Hemoglobin 27.2 pg (27.0-35.0); Mean Corpuscular Volume 87.1 fL (81-100); Platelet Count 253 bil/L (150-400)
[2017-05-28 09:26] LABS: BASOPHILS % (AUTO) 0.4 % (0-3); EOSINOPHILS % (AUTO) 11.8 % (0-5)
[2017-05-28] MEDS: Fluticasone 0.05% 15 Spray/2 Gm 16 Gm Nasal Spray NOSTRIL SCH (09:26)
[2017-05-28] MEDS: Heparin 5,000 Unit/mL Inj SUBQ SCH ×2 (09:30→21:09)
--- NOTE | 2017-05-28 11:00 | NUR ---
HTN B/P continues to be elevated, despite addition of PO medication. MD aware, new order generated for PO medication. Frequent and close monitoring in place. Call light in reach.
--- NOTE | 2017-05-28 12:19 | PCM.PNMED ---
Subjective Date of Service May 28, 2017 Subjective Stable overnight. No significant diarrhea since yesterday morning. Denies fever chills. Urine culture is positive for infection but she denies any symptoms of dysuria. Appetite is looking forward to advancing diet. Exam Vital Signs Vital Sign - Last Date Time Temp Pulse Resp B/P Pulse Ox O2 Delivery O2 Flow Rate FiO2 05/28/17 11:50 36.5 72 18 189/78 96 Room Air Intake and Output 05/27/17 05/27/17 05/28/17 Cumulative From/Thru 15:00 23:00 07:00 05/26/17 14:48 - 05/28/17 06:01 Intake Total 2480 ml 300 ml 4980 ml Output Total 1700 ml 1350 ml 3600 ml Balance 780 ml -1050 ml 1380 ml Intake Oral 820 ml 300 ml 1320 ml IV Total 1660 ml 3660 ml Output Urine Total 850 ml 1350 ml 2750 ml Stool Total 850 ml 850 ml # Bowel Movements 4 2 8 Exam General: Alert, Oriented X3, Cooperative, no acute Distress Mouth: Mucous Membr Moist/[place] Cardiovascular: Regular Rate/Rhythm Abdomen: Mild tenderness diffusely, no gaurding. (+)BS) Neurological: Grossly Neurologically Intact IVs and Medications Medications Reviewed: Medications were reviewed in detail Lab and Diagnostics Result Diagram: 05/28/17 0543 05/28/17 0543 Microbiology Blood, stool, and urine cultures obtained and sent. X-Rays, CTs and MRIs CT KUB IMPRESSION: 1. No evidence of urinary tract calcification, nor obstruction. 2. Gas within the urinary bladder, which may represent recent catheterization. Correlation recommended. If there is no history of recent bladder catheterization, colovesical fistula should be considered. 3. Appendix not seen. No evidence of appendicitis. 4. Bilateral pars interarticularis defects. 5. Small hiatal hernia. Dictated by: Alix Polo M.D. on 05/26/2017 at 18:57 Approved by: Alix Polo M.D. on 05/26/2017 at 19:00 X-RAY CHEST, TWO VIEWS IMPRESSION: No acute process. Dictated by: Alix Polo M.D. on 05/26/2017 at 17:14 Approved by: Alix Polo M.D. on 05/26/2017 at 17:14 12-lead ECG EKG on 05/26/17: Sinus rhythm with rate of 68 Minimally peaked T waves in anterior leads Cardiac Echo Impressions Echocardiogram Report Interpretation Summary The ejection fraction is estimated to be 60-65%. There is moderate mitral annular calcification. There is trace tricuspid regurgitation. The right ventricular systolic pressure is estimated at 50 mmHg assuming a right atrial pressure of 3 mm Hg. Electronically signed by: Clay De La Torre on Reading Physician:01/06/2017 11:43 AM Assessment & Plan Jessica Hunter is a 77-year-old female with past medical issues significant for [place], TIA, diabetes mellitus, hyperlipidemia, hypertension, and cholecystectomy in October 2016 who presents with ongoing diarrhea since cholecystectomy. Admitted for acute on chronic kidney injury, hyperkalemia, and ongoing diarrhea. Diarrhea, present on admission, active. - Etiology possibly secondary to cholecystectomy in October versus viral etiology versus recent antibiotic use. - Stool PCR demonstrating presence of multiple pathogens, E.coli sps in addition to 2 viral sps. This is a different E.coli strain from February stool study, Rotavirus present pboth occasions, and january stool study (+) only for Norovirus. - 2 L of IV fluids given in the ED. Continued at 150 ml/hr, yesterday then discontinued with good oral intake. - Advance diet as tolerated, now on clears - Closely monitor electrolytes and fluid status. - ID consulted for further consideration - Case discussed w/ GI (DR Morales) however give pt being on Plavix, would have to wait 5-7 days prior to colonoscopy as biopsies would not be possible. - Will consider holding Plavix on discharge if pt stabilizes quickly, may consider prompt out patient FU for colonoscopy. May reconsider in 1-2 days if condition proves refractory - No antibiotic therapy will be indicated for this condition given findings. Hyperkalemia, present on admission, active. - Potassium 6.0 on admission. - Repeat potassium normalized - Continue to manage blood sugar elevation which likely contributes. Acute on chronic kidney injury, present on admission, active. - Per outpatient records BUN and creatinine were 28 and 1.45 on 03/20/17. - On presentation to ED BUN was 43 and creatinine 2.73. - Likely secondary to ongoing diarrhea and vomiting. - IV fluids as above. - IMproving with hydration - Continue to trend - Urine cx remains pending. ESBL cystitis - Deferred treatment recommendations to infectious disease given comorbid gastrointestinal conditions. - Likely initiate antibiotics later today - Patient is hemodynamically stable no evidence of sepsis CT finding of gas within the urinary bladder, present on admission, active. - Patient with no recent history of catheterization. - Consider further workup including cystogram. Hypertension, present on admission, active. - Continue home regimen of amlodipine 5 mg twice a day. - Restarted home regimen of labetalol 300 mg 3 times a day in the setting of severe hypertension. Diabetes mellitus type II insulin using, present on admission, active. - Home regimen includes glargine 15 units twice a day. Will reduce to 10 units once a day. - Lispro low-dose correctional scale. - Gabapentin 100 200 mg nightly for neuropathy. History of TIA, present on admission, ongoing. - Continue clopidogrel 75 mg daily. - May hold if GI procedure / colonoscopy is considered Asthma, present on admission, chronic. - Continue home inhalers including Atrovent and albuterol. Pain Evaluation: Adequate Pain Control GI Prophylaxis: Not indicated VTE Mechanical Devices: Venous Foot Pump Resuscitation Status: Limited Interventions (DO NOT INTUBATE) Limited Interventions: Compressions, Cardioversion/Defibrillation Time spent 30 minutes Lavon Pak DO May 28, 2017 12:19
--- NOTE | 2017-05-28 15:11 | CONS ---
[address] [address] CONSULTATION REPORT PATIENT: HORACE BERRY : 1940 MR#: [id number] ADMIT: 05/26/2017 JOB ID: [id number] DATE OF SERVICE: 05/28/2017 INFECTIOUS DISEASE CONSULTATION: I thank Dr. Pak for this timely consult. REASON FOR CONSULTATION: Diarrhea with ESBL E. coli urinary tract colonization. HISTORY OF PRESENT ILLNESS: The patient is a 77-year-old woman well known to me from an admission in October when she had a cholecystectomy. The patient reports that following her cholecystectomy she was okay for a couple of months but beginning in December or January developed frequent loose stools. These would come and go, and she would have periods of diarrhea followed by more or less normal periods without diarrhea. Most recently she was admitted to this hospital on the late at night with protracted diarrhea to the point that she could not stay hydrated and for that reason was admitted and evaluated. ID consultation is requested because multiple pathogens have been found in stool including a Shiga-producing E. coli, an astrovirus and a rotavirus. The patient gives us a story of five months of off and on diarrhea ever since the cholecystectomy. She denies any and all possible sources of recurrent diarrheal infections. She states she lives in a house in [facility] which has PUD water, but despite that she drinks only [employer] bottled water. She and her dine out frequently but even when they dine out they drink bottled water. She has some grandchildren around, but only one who is in the baby or toddler stage, and that child has not had any diarrhea and her contact with him is relatively infrequent. Other persons in the household are entirely free of diarrhea or diarrheal symptoms including some who drink the tap water there. There is no recent history of travel, no usual foods, and no preceding history of diarrhea before late this past winter. In association with this diarrhea the patient has very little in the way of other symptoms. Specifically she has no fevers, chills, or sweats. She has been lightheaded at times and felt weak, presumably on the basis of frequent stools up to seven times per day. The patient does report a chronic sore neck as well as some fullness or irritation along the diaphragmatic margin of the abdomen but really little else in the way of constitutional or any focal symptoms. PAST MEDICAL HISTORY: 1. Essential hypertension. 2. Chronic renal insufficiency. 3. Type 2 diabetes. 4. Hyperlipidemia. 5. Asthma. 6. Status post cholecystectomy October 2016. 7. Chronic diarrhea since December or January 2017. SOCIAL HISTORY: The patient has worked all over the [place], primarily in the [place]. She is now retired. She is a nonsmoker, nondrinker. FAMILY HISTORY: Positive for diabetes in a sister but negative for TB in all first- and second-degree family members. REVIEW OF SYSTEMS: Was done. Today the patient has no significant headache, visual change, or sore throat. She has chronic neck pain which has actually gotten better since she has been here in the hospital. No significant cough, though she does occasionally have shortness of breath. No chest pain. No nausea, though she has had a couple of episodes of vomiting within the last month or so. She does have diarrhea as was described above which tends to wax and wane. She has had some upper abdominal pain along the diaphragm which is improving, as is her diarrhea. She denies any abdominal pain per se. She has not had dysuria, urgency, or frequency. She denies new pain in her joints. No significant skin rash. The remainder of the review of systems is negative. PHYSICAL EXAMINATION: Reveals an afebrile woman, temp 36.5, pulse 72, respiratory rate 18, blood pressure 189/78. She is saturating well on room air and is in no acute distress. Her mental status is entirely clear. Head without trauma. No temporal wasting. No conjunctivitis, no scleral icterus. No pharyngitis. Dentition is in reasonable repair. Neck without adenopathy or JVD. The neck is supple. Her lungs are clear. No wheezing is heard. Cardiac tones regular rate and rhythm. Abdomen soft and nontender this afternoon. No suprapubic fullness. She does not have a Vargas catheter. She does have venous stasis changes below the knees bilaterally, but without significant edema, and certainly no cellulitis involving the lower extremities. No synovitis is seen. She is neurologically intact. No pedal edema. She does have a minimal amount of decreased sensation in her feet, however, related to her longstanding diabetes presumably. LABORATORIES: Include white count 4500, 11% eosinophils are noted interestingly. Her creatinine 1.38. ALT is 42, AST 48, albumin 3.6. Creatinine was 2.73 when she came in; it has already declined to 1.38. Urinalysis: 6-10 white cells. Hep C is negative. The urine culture grew an ESBL E. coli in a concentration of greater than 100,000 colonies. The stool PCR on this occasion yielded an E. coli shiga-like toxin producing organism which is not E coli 0157. Additionally astrovirus and rotavirus were noted. Going back into her record a bit further, in February she had a stool PCR which was positive for EPEC as well as rotavirus, and back on January 16 the stool PCR was positive for Norovirus only. In looking at the results from her gallbladder surgery, her gallbladder fluid culture was positive for Enterococcus faecium. A stool done in June 2016 before her surgery had an enteroaggretive E. coli, as well as an enteropathogenic E. coli and an enterotoxigenic E. coli. She also had an ESBL E. coli in the urine one year ago. IMAGING: Includes a CT scan of the abdomen which showed no evidence of urinary tract calcification or obstruction, though there was gas in the urinary bladder possibly secondary catheterization, though it is unclear if she has had such catheterization lately. Otherwise, the abdomen was essentially benign as were the lung bases. IMPRESSION: This is an amazing case of a woman who over the course of the past one year has had a grand total of eight different microorganisms detected by [facility] stool PCR. These have included four different types of E. coli including EPEC on multiple occasions, enteroaggretive E. coli, Shiga-producing non-0157 E. coli, and ETEC. In addition, she has had rotavirus, Norovirus, and astrovirus. This is an amazing collection of stool pathogens and it is hard to explain how she has acquired all these without contaminated water or contacts with multiple ill persons with diarrhea such as might occur in a daycare or some similar situation. The patient denies receiving unusual home cooked meals from neighbors or any other clear-cut risk factor. I suspect that most of her diarrhea may be on the basis of post cholecystectomy dumping syndrome and might suggest a trial of lower dose cholestyramine to see if it brings some of her diarrhea under control. The detection of some of the organisms such as rotavirus likely represents just continued presence of minute amounts of virus left over from prior episodes and probably does not represent a clear-cut pathogen at this time. Given the fact she has a Shiga-producing E. coli in her stool, it would be unsafe to give her antibiotics, and fortunately I do not think she needs any at this time. The patient looks utterly nontoxic at this point and has basically normal laboratories so I think that she could be discharged and does not require specific treatment for her Shiga-producing E. coli or any of these other organisms. Also notable here is the fact that she has ESBL E. coli in the urine and has had this off and on for a couple of years. Fortunately she does not have significant pyuria, nor does she have any urinary symptoms. Note that older women over the age of 50 or 60 typically have 6-10 white cells, and 30%-40% of such women are chronically colonized with bacteria. This patient has asymptomatic bacteriuria and does not require any treatment. Even if she did require treatment for a urinary tract infection, we would be hard pressed to do it safely with a Shiga-producing E. coli on board. RECOMMENDATIONS: 1. I think the patient can be discharged at any time. 2. I cannot explain how she has so many different stool pathogens over the course of the past 12 months. 3. No antibiotics are indicated. In fact, they are contraindicated because of this Shiga-producing E. coli in the stool. 4. A trial of low-dose cholestyramine may be indicated on an outpatient basis to see whether this helps to control her frequent diarrheal relapses, as I think some of this may be due to cholecystectomy associated dumping syndrome. 5. ID will go and sign off on this case at this time. Thank you very much.
[2017-05-29 00:59] VITALS: BP 147/55; PULSE 75; RESP 16; O2SAT 98
[2017-05-29 01:46] VITALS: PULSE 78
--- NOTE | 2017-05-29 03:19 | NUR ---
Uneventful night Patient has remained alert and oriented, cooperative with care. Denies nausea, abdominal pain. Administered HS medications, BP trending down, at 0100 it was 147/55. Bed alarm on for safety, patient instructed to use call light for needs.
[2017-05-29 04:31] VITALS: BP 121/62; PULSE 76; RESP 16; O2SAT 98
[2017-05-29 05:45] VITALS: PULSE 73
[2017-05-29 06:49] LABS: BASOPHILS % (AUTO) 0.2 % (0-3); EOSINOPHILS % (AUTO) 8.6 % (0-5); MONOCYTES % (AUTO) 13.1 % (4-12); Mean Corpuscular Hemoglobin 26.8 pg (27.0-35.0); Mean Corpuscular Volume 85.8 fL (81-100); NEUTROPHILS % (AUTO) 45.4 % (40-74); Platelet Count 238 bil/L (150-400)
[2017-05-29] MEDS: Insulin LISPRO 300 Unit/3 mL Inj SUBQ SCH ×2 (07:35→12:17)
[2017-05-29] MEDS: Heparin 5,000 Unit/mL Inj SUBQ SCH (08:30)
[2017-05-29] MEDS: Fluticasone 0.05% 15 Spray/2 Gm 16 Gm Nasal Spray NOSTRIL SCH (08:43)
[2017-05-29] MEDS: Insulin GLARgine 100 Unit/mL Syringe SUBQ SCH (09:04)
[2017-05-29 09:13] VITALS: BP 154/64; PULSE 74; RESP 17; O2SAT 95
[2017-05-29 11:43] VITALS: PULSE 74
--- NOTE | 2017-05-29 12:49 | PCM.DC.MED ---
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 Acute on chronic renal failure secondary to dehydration. Consultations Infectious disease, Dr Covarrubias. Procedures XRay, CTs & MRIs CT KUB IMPRESSION: 1. No evidence of urinary tract calcification, nor obstruction. 2. Gas within the urinary bladder, which may represent recent catheterization. Correlation recommended. If there is no history of recent bladder catheterization, colovesical fistula should be considered. 3. Appendix not seen. No evidence of appendicitis. 4. Bilateral pars interarticularis defects. 5. Small hiatal hernia. Dictated by: Alix Polo M.D. on 05/26/2017 at 18:57 Approved by: Alix Polo M.D. on 05/26/2017 at 19:00 X-RAY CHEST, TWO VIEWS IMPRESSION: No acute process. Dictated by: Alix Polo M.D. on 05/26/2017 at 17:14 Approved by: Alix Ploo M.D. on 05/26/2017 at 17:14 ECG 12 Lead EKG on 05/26/17: Sinus rhythm with rate of 68 Minimally peaked T waves in anterior leads Cardiac Echo Impression Echocardiogram Report Interpretation Summary The ejection fraction is estimated to be 60-65%. There is moderate mitral annular calcification. There is trace tricuspid regurgitation. The right ventricular systolic pressure is estimated at 50 mmHg assuming a right atrial pressure of 3 mm Hg. Electronically signed by: Clay De La Torre on Reading Physician:01/06/2017 11:43 AM Brief History As per admission HPI by admitting physician, "Jessica Hunter is a 77-year-old female with past medical issues significant for MO, TIA, diabetes mellitus, hyperlipidemia, hypertension, and cholecystectomy in October 2016 who presents with ongoing diarrhea since cholecystectomy. Patient is Maori-speaking and was in the bathroom for a significant portion of my history due to ongoing diarrhea. History was therefore obtained from both the patient, , and daughter. Patient was admitted in February for diarrhea and stool was positive for rotavirus. Patient received supportive therapy and symptomatically improved. Patient states that diarrhea has continued since this hospitalization waxing and waning with significant worsening over the last 4 days. Patient has had poor oral intake as this typically causes diarrhea and vomiting. Patient also notes diffuse abdominal pain with no radiation. She states it feels like a bloating, gassy feeling. Patient had recent antibiotic use with Bactrim started on 05/10/17. Patient's believes she has had a colonoscopy in the past but I found no records to support this. Patient has also been taking Tylenol daily to help with her abdominal pain. Patient has been trialed on H2 blockers and proton pump inhibitors with no improvement. In the ED vitals were temperature 36.4, pulse 72, respiratory rate 16, blood pressure 93/50, pulse oximetry 98% on room air. Initial labs significant for potassium of 6.0,, BUN 43, creatinine 2.73, lactic acid 1.0, AST 52, ALT 53. EKG normal sinus rhythm with minimally peaked T waves in the anterior leads. In the ED patient was given 2 L of fluid along with Zofran." Hospital Course Jessica Hunter is a 77-year-old female with past medical issues significant for MO, TIA, diabetes mellitus, hyperlipidemia, hypertension, and cholecystectomy in October 2016 who presents with ongoing diarrhea since cholecystectomy. Admitted for acute on chronic kidney injury, hyperkalemia, and ongoing diarrhea. Diarrhea, present on admission, active. - Etiology possibly secondary to cholecystectomy in October versus viral etiology versus recent antibiotic use. - Stool PCR demonstrating presence of multiple pathogens, E.coli sps in addition to 2 viral sps. This is a different E.coli strain from February stool study, Rotavirus present pboth occasions, and january stool study (+) only for Norovirus. - 2 L of IV fluids given in the ED. Continued at 150 ml/hr, yesterday then discontinued with good oral intake. - Advance diet as tolerated, now on clears - Closely monitor electrolytes and fluid status. - ID consulted for further consideration - Case discussed w/ GI (DR Morales) however give pt being on Plavix, would have to wait 5-7 days prior to colonoscopy as biopsies would not be possible. - Will consider holding Plavix on discharge if pt stabilizes quickly, may consider prompt out patient FU for colonoscopy. May reconsider in 1-2 days if condition proves refractory - No antibiotic therapy will be indicated for this condition given findings. Per recommendations of infectious disease: "1. I cannot explain how she has so many different stool pathogens over the course of the past 12 months. 2. No antibiotics are indicated. In fact, they are contraindicated because of this Shiga-producing E. coli in the stool. 3. A trial of low-dose cholestyramine may be indicated on an outpatient basis to see whether this helps to control her frequent diarrheal relapses, as I think some of this may be due to cholecystectomy associated dumping syndrome." Hyperkalemia, present on admission, resolved. - Potassium 6.0 on admission. - Repeat potassium normalized - Continue to manage blood sugar elevation which likely contributes. Acute on chronic kidney injury, present on admission, active. - Per outpatient records BUN and creatinine were 28 and 1.45 on 03/20/17. - On presentation to ED BUN was 43 and creatinine 2.73. - Likely secondary to ongoing diarrhea and vomiting. - IV fluids as above. - IMproving with hydration - Continue to trend - Urine cx remains pending. ESBL cystitis - Deferred treatment recommendations to infectious disease given comorbid gastrointestinal conditions. - Likely initiate antibiotics later today - Patient is hemodynamically stable no evidence of sepsis CT finding of gas within the urinary bladder, present on admission, active. - Patient with no recent history of catheterization. - Consider further workup out-patient including cystogram if any of the follow symptoms present: pneumourea, fecourea, lower abdominal/pelvic pain, dysuria. Hypertension, present on admission, active. - Continue home regimen of amlodipine 5 mg twice a day. - Restarted home regimen of labetalol 300 mg 3 times a day in the setting of severe hypertension. - BP stable on discharge Diabetes mellitus type II insulin using, present on admission, active. - Home regimen includes glargine 15 units twice a day. Will reduce to 10 units once a day. - Lispro low-dose correctional scale. - Gabapentin 100 200 mg nightly for neuropathy. History of TIA, present on admission, ongoing. - Continued clopidogrel 75 mg daily. - May hold if GI procedure / colonoscopy is considered Asthma, present on admission, chronic. - Continue home inhalers including Atrovent and albuterol. Exam Vital Signs (Last) Date Time Temp Pulse Resp B/P Pulse Ox O2 Delivery O2 Flow Rate FiO2 05/29/17 11:43 74 05/29/17 09:13 36.5 17 154/64 95 Room Air Exam General: Alert, Oriented X3, Cooperative, no acute Distress Mouth: Mucous Membranes Moist/[place] Cardiovascular: Regular Rate/Rhythm Abdomen: Nontender, no guarding. (+)BS) Neurological: Grossly Neurologically Intact Test 05/26/17 17:05 05/26/17 17:09 05/26/17 20:40 05/27/17 06:35 Lipase 37U/L (13-60) Hold [place] Top Tube Received (Received) Lactic Acid Level 1.0mmol/L (0.4-2.0) Troponin T < 0.010ug/L (0.0-0.011) Urine Color Yellow (YELLOW) Urine Appearance Hazy (CLEAR,HAZY) Urine pH 5.0 (5.0-8.0) Urine Specific [place] 1.020 (1.003-1.035) Urine Protein 100mg/dL (NEG,TRACE) Urine Glucose (UA) Negativemg/dL (NEGATIVE) Urine Ketones Negativemg/dL (NEGATIVE) Urine Occult Blood Trace (NEGATIVE) Urine Nitrite Positive (NEGATIVE) Urine Bilirubin Negative (NEGATIVE) Urine Urobilinogen Normalmg/dL (NORMAL) Urine Leukocyte Esterase Negative (NEGATIVE) Urine RBC 0-2/hpf (0-2) Urine WBC 6-10/hpf (0-5) Urine Epithelial Cells Few/hpf (NONE-MOD) Urine Crystals Oxalic acid crystals (NONE Urine Bacteria Many/hpf (NONE-FEW) Urine Hyaline Casts None/lpf (NONE) Urine Granular Casts None seen (NONE SEEN) Urine Waxy Casts None seen (NONE SEEN) Urine Red Blood Cell Casts None seen (NONE SEEN) Urine White Blood Cell Casts None seen (NONE SEEN) Urine Mucus None seen (None Seen) Urine Trichomonas None seen (NONE SEEN) Urine Yeast None (NONE SEEN) Urinalysis Comment None Urine Culture Reflexed Indicated Phosphorus Level 3.9mg/dL (2.5-4.9) Test 05/27/17 15:20 05/28/17 05:43 05/29/17 06:03 Hold Urine Received (Received) Magnesium Level 1.9mg/dL (1.6-2.6) White Blood Count 4.6th/mm3 (3.8-10.1) Red Blood Count 3.81mil/mm3 (3.90-5.20) Hemoglobin 10.2g/dL (12.0-15.6) Hematocrit 32.7% (35.0-46.0) Mean Corpuscular Volume 85.8fL (81-100) Mean Corpuscular Hemoglobin 26.8pg (27.0-35.0) Mean Corpuscular Hemoglobin Concent 31.2% (32.0-37.0) Red Cell Distribution Width 13.7% (12.3-15.4) Platelet Count 238bil/L (150-400) Neutrophils (%) (Auto) 45.4% (40-74) Lymphocytes (%) (Auto) 32.5% (14-46) Monocytes (%) (Auto) 13.1% (4-12) Eosinophils (%) (Auto) 8.6% (0-5) Basophils (%) (Auto) 0.2% (0-3) Sodium Level 140mEq/L (134-144) Potassium Level 4.8mEq/L (3.5-5.2) Chloride Level 112mEq/L (97-108) Carbon Dioxide Level 16mmol/L (18-29) Blood Urea Nitrogen 17mg/dL (8-27) Creatinine 1.37mg/dL (0.57-1.00) Estimat Glomerular Filtration Rate 54mL/min (>59) Glucose Level 121mg/dL (60-99) Calcium Level 9.0mg/dL (8.5-10.1) Total Bilirubin 0.2mg/dL (0.0-1.2) Aspartate Amino Transf (AST/SGOT) 31U/L (0-50) Alanine Aminotransferase (ALT/SGPT) 32U/L (0-32) Alkaline Phosphatase 142U/L (25-165) Total Protein 6.8g/dL (6.4-8.4) Albumin 3.4g/dL (3.4-5.0) Microbiology Results Blood, stool, and urine cultures obtained and sent. Discharge Medications Discharge Medications Amlodipine (Amlodipine) 5 Mg Tablet 10 MG PO DAILY (Reported) Atorvastatin (Lipitor) 10 Mg Tab 10 MG PO HS (Reported) Cholecalciferol (Vitamin D3) (Vitamin D3) 2,000 Unit Capsule 2,000 UNIT PO DAILY (Reported) Clopidogrel (Clopidogrel) 75 Mg Tablet 75 MG PO DAILY Prescribed by: GERTRUDE JACOB MD Ferrous Sulfate (Ferrous Sulfate) 324 Mg Tablet.dr 324 MG PO DAILY (Reported) Fluticasone Propionate (Fluticasone Propionate Nasal) 16 Gm [place].susp 2 SPRAY NS Morning & Noon (Reported) Gabapentin (Gabapentin) 100 Mg Capsule 100-200 MG PO HS (Reported) Insulin Glargine (Lantus U100 Insulin Vial) 100 Unit/Ml Vial 15 UNIT SUBQ BIDWM (Reported) Labetalol (Labetalol) 300 Mg Tablet 300 MG PO TID (Reported) Montelukast (Montelukast) 10 Mg Tablet 10 MG PO HS (Reported) Pantoprazole DR (Pantoprazole DR) 40 Mg Tablet.dr 40 MG PO DAILY (Reported) Ranitidine (Ranitidine) 150 Mg Capsule 150 MG PO BID (Reported) As needed Albuterol HFA (Proair HFA) 8.5 Gm Hfa.aer.ad 2 PUFFS INHALATION TID PRN PRN For Shortness of Breath (Reported) Beclomethasone Dipropionate (Qvar) 8.7 Gm Aer.w.adap 2 PUFF INHALATION DIRECTED PRN PRN For Wheezing (Reported) Ipratropium [place] (Atrovent HFA) 200 Puff/12.9 Gm Inhaler 2 PUFF INH BID PRN PRN For Shortness of Breath (Reported) Loperamide (Loperamide) 2 Mg Capsule 2 MG PO DAILY PRN PRN For Diarrhea or Loose Stool (Reported) Ondansetron ODT (Zofran ODT) 4 Mg Tablet 4 MG PO Q4H PRN PRN For Nausea Prescribed by: RADHA DAUGHERTY DO Followup Plan Disposition: Home with family Follow-up plan Continue to hydrate well with water and other fluid You have been prescribed a new medication which may help with diarrhea in the future. IF diarrhea proves a continuing problem, may discuss further with your primary care physician, and consider consult with [facility] for further evaluation. Discharge Diet: No restrictions Discharge Activity: No restrictions Follow-up with PCP in: 1 week Time spent 40 minutes copies to: Jovana Estrada MD, Benjamin P DO May 29, 2017 12:49
[2017-05-29] MEDS ORDERED: QUE9 PO (13:07)
--- NOTE | 2017-05-29 13:09 | PCM.DIMED ---
Discharge Instructions Date of Service May 29, 2017 Dates of Hospitalization May 26, 2017 at 19:57 Discharge Diagnosis Discharge Diagnosis Chronic, refractory infectious diarrhea Possible chronic dumping syndrome secondary to cholecystectomy. Acute on chronic renal failure secondary to dehydration. Diet Discharge Diet: No restrictions Activity Discharge Activity: No restrictions Patient Instructions Patient Instructions It is very important you take no medications 1 hour BEFORE taking Cholestyramine AND take no medications 4-6 hours after taking Cholestyramine, as they may interact with this medication. Follow-up plan Continue to hydrate well with water and other fluid You have been prescribed a new medication which may help with diarrhea in the future. IF diarrhea proves a continuing problem, may discuss further with your primary care physician, and consider consult with Color Mixer for further evaluation. Follow-up with PCP in: 1 week Lavon Pak DO May 29, 2017 13:09
--- NOTE | 2017-05-29 13:35 | NUR ---
Social Work: Initial Assessment / Multidisciplinary Rounds / Discharge Data: Pt is a 77 y/o female admitted for acute kidney injury. Pt's PCP is Dr Estrada, pt's insurance is [facility] [place] Medicare. EMR reviewed. Pt discussed in rounds. MD states pt likely to d/c today, no d/c planning needs. ID is following, MD confirms no IVABX needed at d/c. CORRECTIONAL GUARD met with pt at bedside, role explained. Pt states she lives with her in a single story home in [place]. Pt does not drive, uses a cane and walker, pt has no hx of HH or SNF, no LTC or VA benefits. No d/c planning needs at this time. Assessment: Pt who is independent at baseline and cable of self care. Plan: Pt will d/c home via POV with spouse today. No D/C planning needs at this time. CORRECTIONAL GUARD will continue to follow if needs arise. RAVINDER Hoover
--- NOTE | 2017-05-29 15:16 | NUR ---
Discharge D/C to home with . D/C packet including f/u instructions, RX and care notes discussed and accompany pt. Pt requested to be escorted off floor via w/c by .
== END 2017-05-29 13:50 | disposition home or self-care (01) | DRG 392 ==
LOC: SED 14:45 → MPC 19:57
PROVIDERS: ADMIT Hospitalist; ATTEND Hospitalist
DX: A09 Infectious gastroenteritis and colitis, unspecified (principal); N17.9 Acute kidney failure, unspecified; N18.4 Chronic kidney disease, stage 4 (severe); I12.9 Hypertensive chronic kidney disease with stage 1 through stage 4 chronic kidney disease, or unspecified chronic kidney disease; N30.90 Cystitis, unspecified without hematuria; B96.20 Unspecified Escherichia coli [E. coli] as the cause of diseases classified elsewhere; Z16.12 Extended spectrum beta lactamase (ESBL) resistance; K91.1 Postgastric surgery syndromes; E87.5 Hyperkalemia; E86.0 Dehydration; E11.9 Type 2 diabetes mellitus without complications; E78.5 Hyperlipidemia, unspecified; Z79.4 Long term (current) use of insulin; Z86.73 Personal history of transient ischemic attack (TIA), and cerebral infarction without residual deficits; J45.909 Unspecified asthma, uncomplicated; B96.22 Other specified Shiga toxin-producing Escherichia coli [E. coli] [STEC] as the cause of diseases classified elsewhere

== ENCOUNTER 2017-06-05 10:05 | Inpatient (IN) | payer MEDICARE ==
[~2017-06-05] VITALS: Ht 154.9 cm; Wt 67.9 kg
[2017-06-05] VITALS (7 sets, daily range): BP systolic 142–174; BP diastolic 56–80; PULSE 88–110; RESP 16–18; O2SAT 91–97
[~2017-06-05 10:05] MED LIST changes: +BECL8.7A6 INHALATION; +QUE9 PO
--- NOTE | 2017-06-05 10:27 | ED.REPORT ---
HPI-General Illness Date of Service Jun 05, 2017 ED Provider: Dariel Laguna MD A 77 year old female with a history of TIA, UT, diabetes, high cholesterol, hypertension, UTI, atypical pneumonia and hyperlipidemia is brought to the ED via EMS due to altered mental status. The pt woke at 03:00 with a frontal headache. She felt generally unwell so she went to go sit down in the living room. Her found her later in the morning and became concerned when she did not respond normally when he spoke to her. She seemed unable to carry on a conversation or speak normally. The pt was also febrile with generalized weakness, though she was not experiencing focal weakness. The pt's last known normal was last night, at which point she was not experiencing a fever, cough, headache, or diarrhea. Her speech and thought processes were normal at that time. The pt does not have a history of dementia and her blood sugar was 253 this morning per medics. She was recently admitted to the hospital for acute kidney injury. Nursing Notes Stated Complaint: WEAKNESS/FEVER Chief Complaint: Headache Nursing Notes Reviewed: Yes Allergies: Coded Allergies: pioglitazone (Verified Allergy, Intermediate, Nausea,Vomiting, 06/05/17) rosiglitazone (Verified Allergy, Intermediate, Nausea,Vomiting, 06/05/17) amoxicillin (Verified Allergy, Mild, itching, 06/05/17) ciprofloxacin HCl (Verified Allergy, Mild, Rash,Itching,, 06/05/17) per PCP record from [facility] clavulanic acid (Verified Allergy, Mild, itching, 06/05/17) erythromycin base (Verified Allergy, Mild, unknown, 06/05/17) per PCP record at [facility] morphine (Verified Adverse Reaction, Intermediate, Nausea,Vomiting, ) Scheduled Amlodipine (Amlodipine) 5 Mg Tablet 10 MG PO DAILY Atorvastatin (Lipitor) 10 Mg Tab 10 MG PO HS Cholecalciferol (Vitamin D3) (Vitamin D3) 2,000 Unit Capsule 2,000 UNIT PO DAILY Clopidogrel (Clopidogrel) 75 Mg Tablet 75 MG PO DAILY Ferrous Sulfate (Ferrous Sulfate) 324 Mg Tablet.dr 324 MG PO DAILY Gabapentin (Gabapentin) 100 Mg Capsule 100-200 MG PO HS Insulin Glargine (Lantus U100 Insulin Vial) 100 Unit/Ml Vial 15 UNIT SUBQ BID Ipratropium Mcclure (Atrovent HFA) 200 Puff/12.9 Gm Inhaler 2 PUFF INH QID Labetalol (Labetalol) 300 Mg Tablet 300 MG PO TID Montelukast (Montelukast) 10 Mg Tablet 10 MG PO HS Pantoprazole DR (Pantoprazole DR) 40 Mg Tablet.dr 40 MG PO DAILY Ranitidine (Ranitidine) 150 Mg Capsule 150 MG PO BID Scheduled PRN Albuterol HFA (Proair HFA) 8.5 Gm Hfa.aer.ad 2 PUFFS INHALATION TID PRN PRN For Shortness of Breath Beclomethasone Dipropionate (Qvar) 8.7 Gm Aer.w.adap 2 PUFF INHALATION BID PRN PRN For Wheezing Ondansetron (Ondansetron) 8 Mg Tablet 8 MG PO Q8H PRN PRN For Nausea General Time Seen by MD: 10:19 Chief Complaint Altered mental status Hx Obtained From: Patient, Spouse, EMS Arrived By: Ambulance Sudden in Onset?: Yes Onset Occurred: 5 - 8 hours ago Symptom Duration: Since onset Recent Healthcare: Recent doctor visit, Recent hospitalization Similar Sx Previous: No Past Medical History Past Medical History h/o vertigo Severe HTN UTI Atypical pneumonia recent [place] TIA high cholesterol Reports: Asthma, Diabetes mellitus, GERD, Hyperlipidemia, Hypertension Reports: Kidney disease Past Surgical History Reports: Appendectomy, Cholecystectomy (2016, chronic diarrhea after (resolved as of 05/2017)), Hysterectomy Family History noncontributory Smoking History Never Smoker Social History Alcohol Use: Denies alcohol use Other Social History: Good social support, , Local resident Occupation lives with and son, no work or school 02/15/2017 Ambulatory Status Independent Review of Systems altered mental status denies focal weakness Full Review of Systems Constitutional: Reports: Fever, Weakness - generalized Respiratory: Denies: Non-productive cough GI: Denies: Diarrhea, Vomiting Skin: Denies Rash Neurologic: Reports: Headache Complete sys rev & neg: except as marked. Physical Exam Vital Signs Vital Signs Date Time Temp Pulse Resp B/P Pulse Ox O2 Delivery O2 Flow Rate FiO2 06/05/17 12:53 37.1 06/05/17 10:22 37.3 110 18 174/56 91 Room Air Initial VS: Reviewed General/Constitutional: Awake, Alert Head / Eyes: Atraumatic, Normocephalic, PERRL, EOMI ENT: Atraumatic, Airway patent, Mucous membranes moist Neck: Atraumatic, Supple, Full range of motion questionable positive Brudzinskis Sign Respiratory / Chest: Atraumatic, Breath sounds = bilat, No respiratory distress faint crackles, bilateral bases Cardiovascular: Heart rate NL, Regular rhythm, Heart sounds NL Abdomen: Atraumatic, Soft diffuse abdominal tenderness Back: Atraumatic, Full range of motion Upper Extremities Upper Extremity / MS: Atraumatic, Full range of motion Lower Extremity / Pelvis / MS: Neurologic intact, Vascular intact Skin: Atraumatic, Color NL, No rash, Warm, Dry Neurologic: CN II - XII intact left lower extremity drift right lower extremity drift left upper extremity finger to nose dysmetria Psychiatric: Mood NL Interpretation & Diagnostics Lab Results Interpretation Result Diagram: 06/05/17 1015 06/05/17 1015 Test 06/05/17 10:15 06/05/17 11:26 06/05/17 12:28 06/05/17 14:25 White Blood Count 11.1th/mm3 (3.8-10.1) Red Blood Count 4.06mil/mm3 (3.90-5.20) Hemoglobin 11.1g/dL (12.0-15.6) Hematocrit 34.3% (35.0-46.0) Mean Corpuscular Volume 84.5fL (81-100) Mean Corpuscular Hemoglobin 27.3pg (27.0-35.0) Mean Corpuscular Hemoglobin Concent 32.4% (32.0-37.0) Red Cell Distribution Width 13.7% (12.3-15.4) Platelet Count 267bil/L (150-400) Neutrophils (%) (Auto) 84.4% (40-74) Lymphocytes (%) (Auto) 5.9% (14-46) Monocytes (%) (Auto) 8.6% (4-12) Eosinophils (%) (Auto) 0.5% (0-5) Basophils (%) (Auto) 0.3% (0-3) Sodium Level 134mEq/L (134-144) Potassium Level 4.5mEq/L (3.5-5.2) Chloride Level 104mEq/L (97-108) Carbon Dioxide Level 13mmol/L (18-29) Blood Urea Nitrogen 52mg/dL (8-27) Creatinine 1.62mg/dL (0.57-1.00) Estimat Glomerular Filtration Rate 44mL/min (>59) Glucose Level 204mg/dL (60-99) Calcium Level 9.8mg/dL (8.5-10.1) Magnesium Level 1.3mg/dL (1.6-2.6) Total Bilirubin 0.3mg/dL (0.0-1.2) Aspartate Amino Transf (AST/SGOT) 61U/L (0-50) Alanine Aminotransferase (ALT/SGPT) 38U/L (0-32) Alkaline Phosphatase 124U/L (25-165) Troponin T < 0.010ug/L (0.0-0.011) Total Protein 8.2g/dL (6.4-8.4) Albumin 4.0g/dL (3.4-5.0) Triglycerides Level 223mg/dL (0-149) Cholesterol Level 144mg/dL (100-199) LDL Cholesterol, Calculated 57.400mg/dL (0-99) VLDL Cholesterol 44.600mg/dL HDL Cholesterol 42mg/dL (>39) Cholesterol/HDL Ratio 3.43 (0.0-4.4) Lipase 174U/L (13-60) Procalcitonin 2.03ng/mL (0.00-0.08) Lactic Acid Level 1.4mmol/L (0.4-2.0) CSF Appearance Clear (CLEAR) CSF Color Colorless (COLORLESS) CSF WBC 0/mm3 (0-5) CSF RBC 0/mm3 CSF Mononuclear WBCs % CSF Polynuclear WBCs % CSF Other Cells CSF Glucose 107mg/dL (45-90) CSF Total Protein 43mg/dL (15-45) Urine Color Straw (YELLOW) Urine Appearance Slightly cloudy Urine pH 5.0 (5.0-8.0) Urine Specific [place] 1.015 (1.003-1.035) Urine Protein 100mg/dL (NEG,TRACE) Urine Glucose (UA) Negativemg/dL (NEGATIVE) Urine Ketones Negativemg/dL (NEGATIVE) Urine Occult Blood Small (NEGATIVE) Urine Nitrite Negative (NEGATIVE) Urine Bilirubin Negative (NEGATIVE) Urine Urobilinogen Normalmg/dL (NORMAL) Urine Leukocyte Esterase Negative (NEGATIVE) Urine RBC 0-2/hpf (0-2) Urine WBC 0-5/hpf (0-5) Urine Epithelial Cells Few/hpf (NONE-MOD) Urine Crystals None seen (NONE SEEN) Urine Bacteria Many/hpf (NONE-FEW) Urine Hyaline Casts None/lpf (NONE) Urine Granular Casts None seen (NONE SEEN) Urine Waxy Casts None seen (NONE SEEN) Urine Red Blood Cell Casts None seen (NONE SEEN) Urine White Blood Cell Casts None seen (NONE SEEN) Urine Mucus Present (None Seen) Urine Trichomonas None seen (NONE SEEN) Urine Yeast None (NONE SEEN) Urinalysis Comment None Urine Culture Reflexed Indicated ECG Interpretation ECG Interpretation: sinus tachycardia with a rate of [address] changes LVH Q waves in V1, unchanged from previous Time: 11:09 Interpreted by: ED physician X-Ray Chest Interpretation Chest Xray Interpretation: IMPRESSION: 1. New confluent right air space opacities consistent with consolidation and likely reflecting pneumonia. Dictated by: Malachi Pendleton M.D. on 06/05/2017 at 11:49 Approved by: Malachi Pendleton M.D. on 06/05/2017 at 12:01 Interpretation / Wet Read by: Interpret - Radiologist CT Head Interpretation IMPRESSION: 1. No acute intracranial abnormality. Dictated by: Malachi Pendleton M.D. on 06/05/2017 at 11:21 Approved by: Malachi Pendleton M.D. on 06/05/2017 at 11:23 Interpretation / Wet Read by: Interpret - Radiologist CT Abd / Pelvis Interpretation IMPRESSION: 1. Right lower lobe consolidation most likely represents pneumonia. Aspiration may also have this appearance. Please correlate clinically. 2. Air within a distended urinary bladder may be related to recent catheterization. Please correlate clinically to exclude cystitis. 3. Diverticulosis of the colon without diverticulitis. No bowel obstruction. 4. Questionable nonobstructing left renal calculus. No hydronephrosis or ureteral calculi. 5. Moderate-sized hiatal hernia. 6. Small fat containing periumbilical and right inguinal hernias. Dictated by: Devin Mercedes M.D. on 06/05/2017 at 11:15 Approved by: Devin Mercedes M.D. on 06/05/2017 at 11:29 Interpretation / Wet Read by: Interpret - Radiologist Procedures Lumbar Puncture Time: 12:07 Procedure Performed by: ED physician Consent / Setup / Site Prep: Informed consent provided, Consent from patient , Time-out performed, Hand hygiene observed, Stand sterile technique, Sterile drapes applied, Patient sitting up Skin Preparation Agent: Betadine Local Anesthesia: Lidocaine w epi 1% Inserted Needle at: L4 L5 Post-Procedure / Complications: Antibiotic oint applied, Dressing applied, No complications, Tolerated procedure well, Patient stable Re-Eval/Medical Decision Med Decision/Clinical Course 77-year-old female history of CAD, UT, TIA recently admitted for diarrhea, acute kidney injury presenting with altered mental status since 3:00 this morning. Her last was last night greater than 12 hours prior to arrival. She is out of the TPA window. She has been altered and reportedly with a fever by paramedics in route. Afebrile here. On exam her NIH stroke scale is 6. SHe is somnolent but arousable. She has left upper extremity [id number] dysmetria as well as right upper extremity [id number] dysmetria left greater than right though difficult to tell if it is due to poor compliance. She also has bilateral lower extremity drift. Her vital signs are stable. On exam coarse sounds right lung. She also has neck pain on Brudzinski's. Therefore lumbar puncture was performed which shows no signs of meningitis. CT brain no acute pathology. She was also complaining of some abdominal pain with a mildly elevated lipase CT scan abdomen and was performed in no acute pathology as cause for her symptoms. Patient will be admitted for altered mental status and right lung pneumonia. She meets criteria for healthcare associated pneumonia. She has allergies to penicillin, ciprofloxacin, erythromycin. Therefore she was given vancomycin and cefepime. Cause of altered mental status may be due to pneumonia cannot rule out stroke or TIA. Patient will be admitted for stroke workup, treatment or care associated pneumonia and altered mental status workup. Source of Hx: Old records Time of Eval: 12:07 Patient Status: Condition improved Re-Evaluation/Progress Note: Pt rechecked and LP is performed. Pt tolerated the procedure well and there were no complications. The need for admission is discussed. The pt's family understands and agrees with the plan. All questions are addressed at this time. Consultation : Referral / Consult Name: Rigde Cruz Consulted With: Hospitalist Call Returned at: 13:09 Packing Room Supervisor: Agrees with eval, Agrees with plan, Accepts admit Note: Spoke with Dr. Cruz, hospitalist, regarding pt's case. Dr. Cruz agrees with the evaluation and agrees to admit the pt. Counseled Regarding: Diagnosis, Lab results, Need for admission Discharge & Departure Primary Impression: Altered mental status Altered mental status type: unspecified Qualified Code: R41.82 - Altered mental status, unspecified Additional Impression: Pneumonia Pneumonia type: due to unspecified organism Laterality: right Lung location : lower lobe of lung Qualified Code: J18.1 - Lobar pneumonia, unspecified organism Disposition: ADMITTED TO HOSPITAL Discharge Condition All VS Reviewed: Yes Condition: Stable Referrals: Jovana Estrada MD (PCP) Scribe Attestation Portions of this note were transcribed by Oralia Pineda. I, Dr. Laguna personally performed the history, physical exam and medical decision-making; I reviewed and confirmed the accuracy of the information in the transcribed note. copies to: Jovana Estrada MD Risk Factors NIH Stroke Scale Level of Consciousness: Not alert, arousable (1) Ask Month & Age: 1 question right (1) Open/Close Eyes/Hand Avionics Systems Repairer: Performs both tasks (0) Horizontal EO Movements: None (0) Visual Levin: No visual loss (0) Facial Palsy: Normal symmetry (0) Right Arm Motor Drift (10s): No drift 10 sec (0) Left Arm Motor Drift (10s): No drift 10 sec (0) Right Leg Motor Drift (5s): Drift, hits bed (2) Left Leg Motor Drift (5s): Drift, not touch bed (1) Limb Ataxia FNF/Heel-Marrero: Ataxia in 1 limb (1) Sensation (Arms/Legs/Face): No sensory loss (0) Language Aphasia: No aphasia, normal (0) Dysarthria: No dysarthria, normal (0) Extinction/Inattention: No exctinct/inattent (0) NIHSS Score: 6 Time NIHSS Performed: 10:50 Date NIHSS Performed: Jun 05, 2017 Dariel Laguna MD Jun 05, 2017 10:27 ORALIA PINEDA Jun 05, 2017 10:58
[2017-06-05 10:40] LABS: BASOPHILS % (AUTO) 0.3 % (0-3); EOSINOPHILS % (AUTO) 0.5 % (0-5); MONOCYTES % (AUTO) 8.6 % (4-12); Mean Corpuscular Hemoglobin 27.3 pg (27.0-35.0); Mean Corpuscular Volume 84.5 fL (81-100); NEUTROPHILS % (AUTO) 84.4 % (40-74); Platelet Count 267 bil/L (150-400)
[2017-06-05 11:01] LABS: Magnesium 1.3 mg/dL (1.6-2.6)
--- NOTE | 2017-06-05 11:25 | DRSVH ---
PROCEDURE: CT BRAIN WITHOUT CONTRAST ([id number]) INDICATIONS: dysarthria, altered mental status TECHNIQUE: Noncontrast 4.5 mm thick angled axial sections acquired from the foramen magnum to the vertex, with c oronal reformats. COMPARISON: None. FINDINGS: Image quality: Excellent. CSF spaces: Basal cisterns are patent. No extra-axial fluid collections. Ventricles are normal in size and shape. Brain: No intracranial hemorrhage, mass, or mass effect. Man-white matter interface is preserved. Skull and face: Calvarium and visualized facial bones appear intact, without suspicious lesions. Sinuses: Visualized sinuses and mastoids are clear. IMPRESSION: 1. No acute intracranial abnormality. Dictated by: Malachi Pendleton M.D. on 06/05/2017 at 11:21 Approved by: Malachi Pendleton M.D. on 06/05/2017 at 11:23
--- NOTE | 2017-06-05 12:03 | DRSVH ---
PROCEDURE: X-RAY CHEST ONE VIEW, PORTABLE ([id number]) INDICATIONS: altered mental status TECHNIQUE: One view of the chest was acquired. COMPARISON: [facility], CR, XR CHEST 1VW (PORTABLE), 06/03/2016, 11:03. [facility], CR, XR CHEST 1VW (PORTABLE), 10/11/2016, 15:19. [facility], CR, XR CHEST 1VW (PO RTABLE), 01/05/2017, 14:03. FINDINGS: Surgical changes and devices: None. Lungs and pleura: No pleural effusions or pneumothorax. No new confluent air space opacities within the right mid and lower lung zones consistent with consolidation. Chronic peripheral reticular inte rstitial opacities are redemonstrated bilaterally Mediastinum: Mediastinal contours appear unchanged. Heart size is normal. Bones and chest wall: No suspicious bony lesions. Overlying soft tissues appear unremarkable. IMPRESSION: 1. New confluent right air space opacities consistent with consolidation and likely reflecting pneum onia. Dictated by: Malachi Pendleton M.D. on 06/05/2017 at 11:49 Approved by: Malachi Pendleton M.D. on 06/05/2017 at 12:01
--- NOTE | 2017-06-05 12:31 | DRSVH ---
PROCEDURE: CT ABDOMEN AND PELVIS WITHOUT CONTRAST ([id number]) INDICATIONS: abd pain TECHNIQUE: After the administration of oral contrast, 5 mm thick sections acquired from the diaphragms to the sy mphysis. 5 mm coronal and sagittal reformats were performed. For radiation dose reduction, the foll owing was used: automated exposure control, adjustment of mA and/or kV according to patient size. COMPARISON: [facility], CT, CT KUB, 05/26/2017, 18:54. FINDINGS: Image quality: Diagnostic. ABDOMEN: Lung bases: Extensive airspace disease is identified throughout the right lower lobe that has been in cluded on this exam. No definite pleural effusion is evident. The heart is normal in size without a pericardial effusion. Solid organs: The liver, spleen, adrenals, and pancreas are within normal limits. Although, there is small calcified granuloma involving the spleen. The kidneys are normal in size. No hydronephrosis is evident. There is a question of 2 mm calculus involving the mid aspect of the left kidney. The u reters are normal in course and caliber without ureteral calculi evident. Peritoneum and bowel: There is a moderate-sized hiatal hernia. Otherwise, the stomach, duodenum, and remainder of the small bowel loops are nondilated. Moderate residual stool seen within the colon. Extensive colonic diverticulosis is identified without surrounding inflammation to suggest acute dive rticulitis. The appendix is not definitely seen. No free fluid, loculated fluid collection or free air. There may be a small fat containing periumbilical hernia. Nodes and vessels: No retroperitoneal or mesenteric adenopathy by size criteria. Aorta and inferior vena cava are normal in size. There is aortic atherosclerosis atherosclerotic changes involving the iliac arteries. Bones: Image osseous structures are age-appropriate with degenerative changes noted involving the lum bar spine, best appreciated involving the lower lumbar facet joints. No suspicious osseous lesions o r acute fractures are identified. PELVIS: Genitourinary: The urinary bladder is moderately distended with urine, which may be intentional. The re is a small to moderate amount of air contained within the urinary bladder. No Vargas catheter is s een. The uterus and ovaries are not definitely seen. Miscellaneous: There is a small fat containing right inguinal hernia. No free fluid, loculated fluid collection or lymphadenopathy is seen within the pelvis. Bones: No suspicious bony lesions. No acute fractures of the pelvis are evident. IMPRESSION: 1. Right lower lobe consolidation most likely represents pneumonia. Aspiration may also have this a ppearance. Please correlate clinically. 2. Air within a distended urinary bladder may be related to recent catheterization. Please correlat e clinically to exclude cystitis. 3. Diverticulosis of the colon without diverticulitis. No bowel obstruction. 4. Questionable nonobstructing left renal calculus. No hydronephrosis or ureteral calculi. 5. Moderate-sized hiatal hernia. 6. Small fat containing periumbilical and right inguinal hernias. Dictated by: Devin Mercedes M.D. on 06/05/2017 at 11:15 Approved by: Devin Mercedes M.D. on 06/05/2017 at 11:29
[2017-06-05] MEDS ORDERED: Vancomycin Dose per Pharmacist XX ONE (12:35)
[2017-06-05] MEDS ORDERED: Cefepime Inj 2,000 MG in Dextrose 5% Minibag Plus 100 ML IV ONE (12:35)
[2017-06-05] MEDS ORDERED: Vancomycin Inj 1,000 MG in IV Premix 1 EACH IV ONE (13:00)
[2017-06-05] MEDS ORDERED: INSU100V7 SUBQ (13:03)
[2017-06-05] MEDS ORDERED: ATRINH INH (13:03)
[2017-06-05] MEDS ORDERED: ONDA-54 PO (13:06)
[2017-06-05] MEDS ORDERED: 0.9% Sodium Chloride 500 ML IV ONE ×2 (13:25→15:15)
[2017-06-05 13:35] LABS: APPEARANCE,CSF CLEAR (CLEAR); COLOR,CSF COLORLESS (COLORLESS); WHITE BLOOD CELL,CSF 0 /mm3 (0-5)
[2017-06-05] MEDS ORDERED: Labetalol 5 mg/mL 4 mL Inj IVPUSH PRN (14:20)
[2017-06-05] MEDS ORDERED: Alum-Mag Hydrox-Simeth 30 mL Suspension PO PRN (14:20)
[2017-06-05] MEDS ORDERED: Polyethylene Glycol (PEG) 17 Gm Powder PO PRN (14:20)
[2017-06-05] MEDS ORDERED: Ondansetron 2 mg/mL 2 mL Inj IVPUSH PRN (14:20)
--- NOTE | 2017-06-05 14:37 | PCM.HPMED ---
Subjective Date of Service Jun 05, 2017 Primary Provider: Admitting Physician: Primary Care Physician: Jovana Estrada MD Attending Physician: Chief Complaint: Confusion and somnolence History of Present Illness: 77-year-old female with past medical history of IA, TIA, insulin using diabetes with neuropathy, hyperlipidemia, hypertension, UTI with ESBL, and cholecystectomy 10/2016 who presents to the emergency room via EMS today due to acute change in mental status that began at 3 AM this morning as the patient awoke with a supraorbital headache. Patient states that at that time she felt weak, mildly dizzy, and lightheaded. Patient was able to get up and moved to the living room but stopped responding appropriately and was unable to carry on a conversation with her when he questioned her. She denied any additional chest pain, shortness of breath, nausea, vomiting, diarrhea, cough, sputum, abdominal pain, fever, chills, or dysuria/hematuria. called EMS , reportedly a subjective fever, and the patient was brought to the hospital. Per discussion with the daughters families this is very unusual for her as her baseline is usually very social. They state last night there with her playing games until 11 at night. Yesterday she cleaned her house which she is not supposed to do but denies using anything other than [place]. Patient has underlying neuropathy and complains of tingling in all 4 extremities that is not at baseline. In emergency room imaging identified lower lobe consolidations consistent with pneumonia, and the patient was satting 91% on room air. Patient is also hypertensive and tachycardic with only a mild leukocytosis. Respiratory PCR was molina negative and blood cultures were obtained. Urine culture was also requested due to recent history of ESBL, however antibiotics given before an adequate sample could be obtained. Brain CT was negative for bleed. On neurologic exam is noted left and right lower extremity drifts and the patient was unable to perform finger to nose with the emergency room doctor. Review of Systems: Complete review of systems performed; pertinent positives and negatives per history of present illness, all other systems reviewed and are negative Allergies Coded Allergies: pioglitazone (Verified Allergy, Intermediate, Nausea,Vomiting, 06/05/17) rosiglitazone (Verified Allergy, Intermediate, Nausea,Vomiting, 06/05/17) amoxicillin (Verified Allergy, Mild, itching, 06/05/17) ciprofloxacin HCl (Verified Allergy, Mild, Rash,Itching,, 06/05/17) per PCP record from [facility] clavulanic acid (Verified Allergy, Mild, itching, 06/05/17) erythromycin base (Verified Allergy, Mild, unknown, 06/05/17) per PCP record at [facility] morphine (Verified Adverse Reaction, Intermediate, Nausea,Vomiting, ) Home Medications Albuterol Amlodipine 10 mg daily Atorvastatin 10 mg daily Atrovent 2 puffs 4 times a day Clopidogrel 75 mg daily Ferrous sulfate 324 mg daily Gabapentin 900 mg nightly Labetalol 300 mg 3 times a day Lantus 15 units twice a day Loperamide 2 mg when necessary Meclizine when necessary Zofran when necessary Pantoprazole 40 mg daily Qvar twice a day Ranitidine 150 mg twice a day Exam Vital Signs & I/O Vital Sign- Last 8 Hours Date Time Temp Pulse Resp B/P Pulse Ox O2 Delivery O2 Flow Rate FiO2 06/07/17 05:35 97 06/07/17 04:30 Room Air 06/07/17 04:14 36.8 80 18 156/68 95 Room Air 06/07/17 00:51 38.7 95 18 161/64 95 Room Air 06/07/17 00:00 95 20 95 Room Air Intake and Output- Last 8 Hour 06/07/17 Cumulative From/Thru 07:00 06/05/17 10:22 - 06/07/17 06:32 Intake Total 1287 ml 5757 ml Output Total 800 ml 1922 ml Balance 487 ml 3835 ml Intake Oral 100 ml 1726 ml IV Total 1187 ml 4031 ml Output Urine Total 500 ml 1622 ml Urine/Stool Mix 300 ml 300 ml # Voids 4 # Bowel Movements 1 Lab & Micro Results Laboratory Tests Test 06/07/17 06:20 White Blood Count 17.4th/mm3 (3.8-10.1) Red Blood Count 3.50mil/mm3 (3.90-5.20) Hemoglobin 9.4g/dL (12.0-15.6) Hematocrit 29.7% (35.0-46.0) Mean Corpuscular Volume 84.9fL (81-100) Mean Corpuscular Hemoglobin 26.9pg (27.0-35.0) Mean Corpuscular Hemoglobin Concent 31.6% (32.0-37.0) Red Cell Distribution Width 14.3% (12.3-15.4) Platelet Count 233bil/L (150-400) Neutrophils (%) (Auto) 79.6% (40-74) Lymphocytes (%) (Auto) 8.3% (14-46) Monocytes (%) (Auto) 8.1% (4-12) Eosinophils (%) (Auto) 3.1% (0-5) Basophils (%) (Auto) 0.2% (0-3) Sodium Level 138mEq/L (134-144) Potassium Level 4.7mEq/L (3.5-5.2) Chloride Level 108mEq/L (97-108) Carbon Dioxide Level 17mmol/L (18-29) Blood Urea Nitrogen 23mg/dL (8-27) Creatinine 1.10mg/dL (0.57-1.00) Estimat Glomerular Filtration Rate 69mL/min (>59) Glucose Level 115mg/dL (60-99) Calcium Level 8.9mg/dL (8.5-10.1) Magnesium Level 1.9mg/dL (1.6-2.6) Total Bilirubin 0.5mg/dL (0.0-1.2) Aspartate Amino Transf (AST/SGOT) 27U/L (0-50) Alanine Aminotransferase (ALT/SGPT) 22U/L (0-32) Alkaline Phosphatase 82U/L (25-165) Total Protein 6.1g/dL (6.4-8.4) Albumin 3.1g/dL (3.4-5.0) Microbiology 06/05/17 Blood Culture - Preliminary, Resulted NO GROWTH AFTER 24 HOURS 06/05/17 Gram Stain - Final, Resulted 06/05/17 Culture & Sensitivity - Preliminary, Resulted No growth to date 06/05/17 Escherichia coli K1 (PCR) - Final, Resulted Not Detected 06/05/17 Haemophilis influenzae (PCR)(JUAN) - Final, Resulted Not Detected 06/05/17 Listeria DNA (PCR) - Final, Resulted Not Detected 06/05/17 Neisseria meningitidis (PCR)(JUAN) - Final, Resulted Not Detected 06/05/17 Streptococcus agalactiae (PCR)(JUAN) - Final, Resulted Not Detected 06/05/17 Streptococcus pneumoniae (PCR)(JUAN) - Final, Resulted Not Detected 06/05/17 Cytomegalovirus DNA (PCR) (JUAN) - Final, Resulted Not Detected 06/05/17 Enterovirus RNA (PCR) - Final, Resulted Not Detected 06/05/17 Human Herpesvirus 6 - Final, Resulted Not Detected 06/05/17 Herpes Simplex Virus I DNA (PCR)JUAN - Final, Resulted Not Detected 06/05/17 Herpes Simplex Virus II DNA (PCR) M - Final, Resulted Not Detected 06/05/17 Parechovirus RNA (PCR) - Final, Resulted Not Detected 06/05/17 Varicella-Zoster Virus DNA (PCR) MC - Final, Resulted Not Detected 06/05/17 Cryptococcus neoformans/teri (PCR) - Final, Resulted 06/06/17 MRSA (PCR) - Final, Complete 06/05/17 Urine Culture - Preliminary, Resulted Result Diagram: 06/07/1761906/07/17619 Review of Systems: Constitutional: Negative, except as otherwise mentioned in the history above. Ophthalmologic: Negative, except as otherwise mentioned in the history above. Cardiovascular: Negative, except as otherwise mentioned in the history above. Respiratory: Negative, except as otherwise mentioned in the history above. Gastrointestinal: Negative, except as otherwise mentioned in the history above. Genitourinary: Negative, except as otherwise mentioned in the history above. Musculoskeletal: Negative, except as otherwise mentioned in the history above. Neurological: Negative, except as otherwise mentioned in the history above. Psychiatric: Negative, except as otherwise mentioned in the history above. Hematologic/Lymphatic: Negative, except as otherwise mentioned in the history above. Allergic/Immunologic: Negative, except as otherwise mentioned in the history above. PMH h/o vertigo Severe HTN UTI Atypical pneumonia recent IA TIA high cholesterol Reports: Asthma, Diabetes mellitus, GERD, Hyperlipidemia, Hypertension Reports: Kidney disease Surgical History Reports: Appendectomy, Cholecystectomy (2016, chronic diarrhea after (resolved as of 05/2017)), Hysterectomy Family History Siblings - Diabetes Mellitus Parents when patient was 4 years old No history of cancer or heart disease Social History Hx Alcohol Use: No Hx Substance Use: No Hx Tobacco Use: No Smoking Status: Never Smoker Living Arrangement: with Family Exam Vital Signs Vital Sign - Last Date Time Temp Pulse Resp B/P Pulse Ox O2 Delivery O2 Flow Rate FiO2 06/05/17 12:53 37.1 06/05/17 10:22 110 18 174/56 91 Room Air Exam General: Somnolent age-appropriate female HEENT: PERRLA, EOMI, nonicteric, membranes moist Lymph: No lymphadenopathy Cardio: Regular rhythm with tachycardia; notable fixed split S2 Respiratory: CTA bilaterally, no wheezes, no crackles Abdomen: Soft, positive bowel sounds, nontender, nondistended Extremities: No edema; pain to touch in the lower extremities; strength is 3/5 globally Psych: Appropriate mood and affect Neuro: CN II through XII grossly intact, decreased sensation in the lower extremities with pain on palpation; finger to nose was appropriate; no pronator drift; no Babinski; heel to chou appropriate Skin: No rash Lab and Diagnostics Result Diagram: 06/07/1761906/07/17619 X-Rays, CTs and MRIs CT abdomen and pelvis 1. Right lower lobe consolidation most likely represents pneumonia. Aspiration may also have this appearance. Please correlate clinically. 2. Air within a distended urinary bladder may be related to recent catheterization. Please correlate clinically to exclude cystitis. 3. Diverticulosis of the colon without diverticulitis. No bowel obstruction. 4. Questionable nonobstructing left renal calculus. No hydronephrosis or ureteral calculi. 5. Moderate-sized hiatal hernia. 6. Small fat containing periumbilical and right inguinal hernias. Dictated by: Devin Mercedes M.D. on 06/05/2017 at 11:[address] 1. No acute intracranial abnormality Dictated by: Malachi Pendleton M.D. on 06/05/2017 at 11:21 Chest X-ray 1. New confluent right air space opacities consistent with consolidation and likely reflecting pneumonia. Dictated by: Malachi Pendleton M.D. on 06/05/2017 at 11:49 Assessment & Plan 77-year-old female with past medical history of IA, TIA, insulin using diabetes with neuropathy, hyperlipidemia, hypertension, UTI with ESBL, and cholecystectomy 10/2016 who presents to the emergency room via EMS today due to acute change in mental status that began at 3 AM this morning as the patient awoke with a supraorbital headache. Imaging is negative of the brain with positive imaging of consolidation in her lungs consistent with pneumonia. TIA/stroke; present admission; ongoing -presents with confusing constellation of symptoms but there seems to be a neurological component -Other than the somnolence the patient's neurological symptoms improved between ED physician and admitting physician -CT brain was negative for bleed -Atorvastatin 10 mg daily -Aspirin 325 mg daily -Lipid panel and A1c -Permissive hypertension; control>220 with labetalol -Pt already on plavix; will continue -MRA non-contrast; CTA deferred due to renal functoin -Received to 500 mL boluses -Normal saline at 80 mL per hour -Lumbar puncture was clear without signs of infection. Hospital-acquired pneumonia; present on admission; ongoing -Patient was recently discharged last week and presents with new lung mass noted on CT and chest x-ray -Patient does not appear to be septic at this point but does have some confusion may show systemic infection without sepsis -Blood cultures obtained -Legionella and pneumococcal antigens ordered -Pro calcitonin -Vancomycin and meropenem -Repeat CBC -Patient has a history of ESBL, thus meropenem is being used until Bcx are -UA was contaminated and additional straight cath was ordered Acute on chronic kidney injury; present admission; ongoing -Baseline creatinine about 1.3 -Presents with creatinine 1.6 to -UA pending -Fluid management as above Elevated transaminases and elevated lipase; present on admission; ongoing -Patient presents with mild elevations in liver functions with the exception of alkaline phosphatase -A patient's is also elevated -Patient has no complaints of abdominal pain -Hepatitis panel was run in October and no risk factors for infection -Patterns are not consistent with congestion or infarction -Possible bile stone and will order right upper quadrant ultrasound -Note: Patient had a cholecystectomy in October Diabetes, insulin using with neuropathy; present medicines; ongoing -Continue home lantus -Low correctional -A1c ordered Hypertension -Presents with elevated blood pressure; unsure if this is due to possible stroke or not taking her medications as morning -Continue home medications after 24 hours permissive hypertension Hyperlipidemia-statin CAD with IA-aspirin and Plavix Disposition: Patient is being admitted to inpatient status with expected length of stay greater than two midnights due to to severity of presentation, duration of treatment, and risks of adverse events disposition Limited interventions: DO NOT INTUBATE Pain Evaluation: Adequate Pain Control VTE Mechanical Devices: Intermittant Pneumatic CD Resuscitation Status: Limited Interventions (DO NOT INTUBATE) Attending Statement The patient was seen and examined together with Dr. Armendariz on 06/05/17 and I agree with the history, exam and plan as outlined in the note above. Tin Armendariz DO Jun 05, 2017 14:37 Ridge Cruz Jun 07, 2017 07:41
[2017-06-05 15:02] LABS: APPEARANCE,URINE SLIGHTLY CLOUDY (CLEAR,HAZY); COLOR,URINE STRAW (YELLOW); OCCULT BLOOD,URINE SMALL (NEGATIVE); UROBILINOGEN,URINE NORMAL (NORMAL)
[2017-06-05] MEDS ORDERED: Glucose 40% Oral Gel 15 Gm Tube PO PRN (15:20)
[2017-06-05] MEDS ORDERED: Albuterol 2.5 mg/3 mL Inhalation Solution NEB PRN (15:44)
[2017-06-05] MEDS ORDERED: Dextrose 10% 250 ML IV PRN (15:45)
[2017-06-05] MEDS ORDERED: Meropenem Inj 2,000 MG in 0.9% Sodium Chloride 100 ML IV SCH (16:30)
[2017-06-05] MEDS: 0.9% Sodium Chloride 1,000 ML IV SCH ×2 (18:09→21:36)
[2017-06-05] MEDS: Insulin LISPRO 300 Unit/3 mL Inj SUBQ SCH ×2 (18:36→21:37)
--- NOTE | 2017-06-05 18:51 | DRSVH ---
PROCEDURE: US ABDOMEN, LIMITED ([id number]) INDICATIONS: 77 year-old female with elevated liver function tests. TECHNIQUE: Real-time focused scanning was performed of the abdomen, with image documentation. COMPARISON: [facility], CT, CT ABD PELVIS WO CON, 06/05/2017, 11:58. FINDINGS: The liver is normal in overall size and homogeneous in echotexture. No suspicious hepatic m asses. The gallbladder is surgically absent. No intra-or extrahepatic biliary ductal dilation. No estevan e abdominal fluid within the hepatorenal recess. IMPRESSION: No sonographic explanation for elevated liver function tests. Dictated by: Tito Burks M.D. on 06/05/2017 at 18:45 Approved by: Tito Burks M.D. on 06/05/2017 at 18:48
[2017-06-05] MEDS ORDERED: Magnesium Sulf 2 Gm/50mL Water 2 GM in IV Premix 1 EACH IV ONE ×2 (20:25→23:30)
[2017-06-05] MEDS ORDERED: LABETALOL 300 MG PO SCH (20:30)
[2017-06-05] MEDS: Insulin GLARgine 100 Unit/mL Syringe SUBQ SCH (21:37)
[2017-06-06] VITALS (9 sets, daily range): BP systolic 156–171; BP diastolic 63–68; PULSE 89–100; RESP 18–20; O2SAT 92–97
[2017-06-06] MEDS: Meropenem Inj 2,000 MG in 0.9% Sodium Chloride 100 ML IV SCH ×3 (03:26→19:44)
[2017-06-06 06:23] LABS: BASOPHILS % (AUTO) 0.2 % (0-3); EOSINOPHILS % (AUTO) 0.8 % (0-5); MONOCYTES % (AUTO) 5.6 % (4-12); Mean Corpuscular Hemoglobin 27.2 pg (27.0-35.0); Mean Corpuscular Volume 84.4 fL (81-100); NEUTROPHILS % (AUTO) 84.5 % (40-74); Platelet Count 235 bil/L (150-400)
[2017-06-06 06:55] LABS: Magnesium 2.2 mg/dL (1.6-2.6)
[2017-06-06] MEDS: Insulin LISPRO 300 Unit/3 mL Inj SUBQ SCH ×4 (08:00→22:00)
[2017-06-06] MEDS: Insulin GLARgine 100 Unit/mL Syringe SUBQ SCH ×2 (08:39→22:21)
--- NOTE | 2017-06-06 10:35 | DRSVH ---
PROCEDURE: MRA ANGIOGRAM HEAD WITHOUT CONTRAST ([id number]) INDICATIONS: DECREASED MENTATION TECHNIQUE: Noncontrast axial 3-D [id number] MR angiogram, with 3-dimensional maximum intensity projection (M IP) reformats of the internal carotid arteries and posterior circulation then performed. COMPARISON: [facility], MR, MR STROKE PROTOCOL, 07/05/2015, 14:45. [facility] l, CT, CT BRAIN WO CON, 06/05/2017, 10:59. FINDINGS: Image quality: Excellent. Anterior circulation: Intracranial internal carotid arteries demonstrate normal size and intralumina l flow signal. The flow within the paired anterior cerebral arteries is patent bilaterally. The nadir w within the middle cerebral arteries is patent bilaterally. The anterior communicating artery is pa tent. No focal stenoses, occlusions, or aneurysms. Posterior circulation: The basilar artery is supplied by the left vertebral artery. The mass artery appears patent along its course. The flow within the posterior cerebral arteries is patent bilatera lly without focal stenoses. IMPRESSION: 1. No high-grade stenosis or occlusion of the central intracranial arteries. 2. Basilar artery supplied by the left vertebral artery. Finding is unchanged from the prior study and likely represents an anatomic variant Dictated by: Malachi Pendleton M.D. on 06/06/2017 at 10:34 Approved by: Malachi Pendleton M.D. on 06/06/2017 at 10:34
[2017-06-06] MEDS: 0.9% Sodium Chloride 1,000 ML IV SCH ×2 (11:03→22:22)
[2017-06-07] VITALS (12 sets, daily range): BP systolic 155–171; BP diastolic 64–70; PULSE 80–97; RESP 16–20; O2SAT 93–96
--- NOTE | 2017-06-07 00:25 | PCM.PNMED ---
Subjective Date of Service Jun 07, 2017 Subjective The patient is more awake and alert than she was yesterday. She is feeling better and very much wants to go home as her son who is the last of her 6 children is getting today. The patient has no specific new complaints. Exam Vital Signs Vital Sign - Last Date Time Temp Pulse Resp B/P Pulse Ox O2 Delivery O2 Flow Rate FiO2 06/06/17 20:11 37.7 96 18 157/63 96 Room Air Intake and Output 06/06/17 06/06/17 06/07/17 Cumulative From/Thru 15:00 23:00 07:00 06/05/17 10:22 - 06/06/17 18:06 Intake Total 2359 ml 4470 ml Output Total 772 ml 1122 ml Balance 1587 ml 3348 ml Intake Oral 1272 ml 1626 ml IV Total 1087 ml 2844 ml Output Urine Total 772 ml 1122 ml # Voids 2 4 # Bowel Movements 1 1 Lab and Diagnostics Result Diagram: 06/06/17 0531 06/06/17 0531 Microbiology Name: HORACE BERRY Susana Age/Sex: 77/F Attend Dr: Ridge Cruz Acct: [id number] Unit: [id number] Status: ADM IN Location: [facility] 3025-1 Re06/05/17 Disch: Specimen: [id number] Collected: 06/05/17 Status: SHAUN Botello#: [id number] Received: 06/05/17 Source: URINE CC Sp Desc : PP Subm Dr: Dariel Laguna MD Ordered: URINE CULT Procedure Result Verified Site Microbiology JUAN CULT URINE Preliminary 06/06/17 PRELIMINARY ID GRAM NEGATIVE DOE ID AND SENS TO FOLLOW COLONY COUNT/QUANTITY >100,000 CFU/ml X-Rays, CTs and MRIs CT abdomen and pelvis 1. Right lower lobe consolidation most likely represents pneumonia. Aspiration may also have this appearance. Please correlate clinically. 2. Air within a distended urinary bladder may be related to recent catheterization. Please correlate clinically to exclude cystitis. 3. Diverticulosis of the colon without diverticulitis. No bowel obstruction. 4. Questionable nonobstructing left renal calculus. No hydronephrosis or ureteral calculi. 5. Moderate-sized hiatal hernia. 6. Small fat containing periumbilical and right inguinal hernias. Dictated by: Devin Mercedes M.D. on 06/05/2017 at 11:[address] 1. No acute intracranial abnormality Dictated by: Malachi Pendleton M.D. on 06/05/2017 at 11:21 Chest X-ray 1. New confluent right air space opacities consistent with consolidation and likely reflecting pneumonia. Dictated by: Malachi Pendleton M.D. on 06/05/2017 at 11:49 Assessment & Plan 77-year-old female with past medical history of [place], TIA, insulin using diabetes with neuropathy, hyperlipidemia, hypertension, UTI with ESBL, and cholecystectomy 10/2016 who presents to the emergency room via EMS today due to acute change in mental status that began at 3 AM this morning as the patient awoke with a supraorbital headache. Imaging is negative of the brain with positive imaging of consolidation in her lungs consistent with pneumonia. TIA/stroke; present admission; ongoing -presents with confusing constellation of symptoms but there seems to be a neurological component -Other than the somnolence the patient's neurological symptoms improved between ED physician and admitting physician -CT brain was negative for bleed -Atorvastatin 10 mg daily -Aspirin 325 mg daily -Lipid panel and A1c -Permissive hypertension for 24 hours after admission; control>220 with labetalol. Now begin closer control of blood pressure as needed. -Pt already on plavix; will continue -MRA non-contrast; CTA deferred due to renal functoin final result is pending. -Received two 500 mL boluses -Continue Normal saline at 80 mL per hour -Lumbar puncture was clear without signs of infection. Hospital-acquired pneumonia; present on admission; ongoing -Patient was recently discharged last week and presents with new lung mass/ consolidation noted on CT and chest x-ray -Patient does not appear to be septic at this point but does have some confusion may show systemic infection without sepsis. White blood cell count has almost doubled since yesterday 12/30,000. -Blood cultures obtained and are pending -Legionella and pneumococcal antigens ordered -Pro calcitonin ordered -We will continue Vancomycin and meropenem for now as patient has had resistant organisms isolated from urinary tract and has had Pseudomonas isolated from the sputum. -Repeat CBC -Patient has a history of ESBL, thus meropenem is being used until Bcx are -UA was contaminated and additional straight cath was ordered Acute on chronic kidney injury; present admission; ongoing -Baseline creatinine about 1.3 -Presents with creatinine 1.6 to -UA pending -Fluid management as above Elevated transaminases and elevated lipase; present on admission; ongoing -Patient presents with mild elevations in liver functions with the exception of alkaline phosphatase. This is likely due to septicemia. -Patient has no complaints of abdominal pain -Hepatitis panel was run in October and no risk factors for infection -Patterns are not consistent with congestion or infarction -Possible bile stone and will order right upper quadrant ultrasound -Note: Patient had a cholecystectomy in October -We will check serial CMP's Diabetes, insulin using with neuropathy; present medicines; ongoing -Continue home lantus -Low correctional -A1c ordered Hypertension -Presents with elevated blood pressure; unsure if this is due to possible stroke or not taking her medications as morning -Continue home medications after 24 hours permissive hypertension Hyperlipidemia-statin CAD with [place]-aspirin and Plavix Disposition: Patient was informed that she will not be going home today to attend her son's wedding. She was disappointed but understood due to the severity and complexity of her illness. Her family understands as well. She understands that she will be her several more days for further evaluation and treatment of the above complex medical problems. Limited interventions: DO NOT INTUBATE Pain Evaluation: Adequate Pain Control VTE Mechanical Devices: Intermittant Pneumatic CD Resuscitation Status: Limited Interventions (DO NOT INTUBATE) Víctor Britton MD Jun 07, 2017 00:25
[2017-06-07] MEDS: Meropenem Inj 2,000 MG in 0.9% Sodium Chloride 100 ML IV SCH ×3 (04:09→18:00)
[2017-06-07 06:33] LABS: BASOPHILS % (AUTO) 0.2 % (0-3); EOSINOPHILS % (AUTO) 3.1 % (0-5); MONOCYTES % (AUTO) 8.1 % (4-12); Mean Corpuscular Hemoglobin 26.9 pg (27.0-35.0); Mean Corpuscular Volume 84.9 fL (81-100); NEUTROPHILS % (AUTO) 79.6 % (40-74); Platelet Count 233 bil/L (150-400)
[2017-06-07 07:00] LABS: Magnesium 1.9 mg/dL (1.6-2.6)
[2017-06-07] MEDS: Insulin LISPRO 300 Unit/3 mL Inj SUBQ SCH ×4 (08:00→21:13)
[2017-06-07] MEDS: Insulin GLARgine 100 Unit/mL Syringe SUBQ SCH ×2 (08:43→21:13)
[2017-06-07] MEDS: 0.9% Sodium Chloride 1,000 ML IV SCH (11:37)
--- NOTE | 2017-06-07 23:12 | PCM.PNMED ---
Subjective Date of Service Jun 07, 2017 Subjective Patient is feeling a little bit better. However' she appears to have shaking chills. She is complaining of tremor when she drinks cold water. Exam Vital Signs Vital Sign - Last Date Time Temp Pulse Resp B/P Pulse Ox O2 Delivery O2 Flow Rate FiO2 06/07/17 20:59 36.7 85 18 160/68 95 Room Air Intake and Output 06/06/17 06/06/17 06/07/17 Cumulative From/Thru 15:00 23:00 07:00 06/05/17 10:22 - 06/07/17 06:32 Intake Total 2359 ml 1287 ml 5757 ml Output Total 772 ml 800 ml 1922 ml Balance 1587 ml 487 ml 3835 ml Intake Oral 1272 ml 100 ml 1726 ml IV Total 1087 ml 1187 ml 4031 ml Output Urine Total 772 ml 500 ml 1622 ml Urine/Stool Mix 300 ml 300 ml # Voids 2 4 # Bowel Movements 1 1 Exam General: Patient is exhibiting tremors and appears to have shaking chills. Otherwise she appears to have more energy and is sitting up on the side of the bed. HEENT: Head is atraumatic and normocephalic. Eyes: Pupils are equally round and reactive to light and accommodation. Extraocular muscles are intact. Sclera are white, anicteric. Subconjunctival mucosa is pink. Ears and nose are unremarkable. Oropharynx: There is no mucosal lesions, there is no thrush, there is no pharyngitis. Neck: Is supple, there are no nodes, or masses or tenderness. Chest: Is significant for rales at the right base approximately one third of the way up the lung field. Otherwise the lungs are clear. Heart: Rate, rhythm is regular. There is no new murmur, rub or gallop. Abdomen: Good bowel sounds are present. Abdomen is soft, nontender, no organomegaly or masses were appreciated. Extremities: Are symmetrical and well perfused. There is no edema, there is no cellulitis, no rash. Neurologic: There are no focal neurological deficits. Cranial nerves II through XII are intact. There are no sensory or motor deficits. The patient appears to have an essential tremor. Psychiatric: Patients mood is calm and shows no sign of agitation. Genital: Deferred Rectal: Deferred Lab and Diagnostics Result Diagram: 06/07/1761906/07/17619 Microbiology Name: HORACE BERRY Age/Sex: 77/F Attend Dr: Ridge Cruz Acct: [id number] Unit: [id number] Status: ADM IN Location: [facility] 3025-1 Re06/05/17 Disch: Specimen: [id number] Collected: 06/05/17 Status: RES Req#: [id number] Received: 06/05/17 Source: URINE JONE Narvaez Desc : MAGDALENE Soto Dr: Dariel Laguna MD Ordered: URINE CULT Procedure Result Verified Site Microbiology JUAN CULT URINE Preliminary 06/06/17-07 PRELIMINARY ID GRAM NEGATIVE DOE ID AND SENS TO FOLLOW COLONY COUNT/QUANTITY >100,000 CFU/ml X-Rays, CTs and MRIs CT abdomen and pelvis 1. Right lower lobe consolidation most likely represents pneumonia. Aspiration may also have this appearance. Please correlate clinically. 2. Air within a distended urinary bladder may be related to recent catheterization. Please correlate clinically to exclude cystitis. 3. Diverticulosis of the colon without diverticulitis. No bowel obstruction. 4. Questionable nonobstructing left renal calculus. No hydronephrosis or ureteral calculi. 5. Moderate-sized hiatal hernia. 6. Small fat containing periumbilical and right inguinal hernias. Dictated by: Devin Mercedes M.D. on 06/05/2017 at 11:[address] 1. No acute intracranial abnormality Dictated by: Malachi Pendleton M.D. on 06/05/2017 at 11:21 Chest X-ray 1. New confluent right air space opacities consistent with consolidation and likely reflecting pneumonia. Dictated by: Malachi Pendleton M.D. on 06/05/2017 at 11:49 PROCEDURE: MRA ANGIOGRAM HEAD WITHOUT CONTRAST ([id number]) INDICATIONS: DECREASED MENTATION TECHNIQUE: Noncontrast axial 3-D [id number] MR angiogram, with 3-dimensional maximum intensity projection (MIP) reformats of the internal carotid arteries and posterior circulation then performed. COMPARISON: [facility], MR, MR STROKE PROTOCOL, 07/05/2015, 14:45. [facility], CT, CT BRAIN WO CON, 06/05/2017, 10:59. FINDINGS: Image quality: Excellent. Anterior circulation: Intracranial internal carotid arteries demonstrate normal size and intraluminal flow signal. The flow within the paired anterior cerebral arteries is patent bilaterally. The flow within the middle cerebral arteries is patent bilaterally. The anterior communicating artery is patent. No focal stenoses, occlusions, or aneurysms. Posterior circulation: The basilar artery is supplied by the left vertebral artery. The mass artery appears patent along its course. The flow within the posterior cerebral arteries is patent bilaterally without focal stenoses. IMPRESSION: 1. No high-grade stenosis or occlusion of the central intracranial arteries. 2. Basilar artery supplied by the left vertebral artery. Finding is unchanged from the prior study and likely represents an anatomic variant Dictated by: Malachi Pendleton M.D. on 06/06/2017 at 10:34 Approved by: Malachi Pendleton M.D. on 06/06/2017 at 10:34 12-lead ECG . Sinus tachycardia . Probable left atrial enlargement . Probable LVH with secondary repol abnrm Cardiac Echo Impressions Echocardiogram Report Name: HORACE BERRY OStudy Date: Height: 61 in Hospital Exam Location: [facility] Weight: 148 lb Gender: Female BSA: 1.7 m2 : 1940 Age: 76 yrs BP: 181/76 mmHg Reason For Study: CVA Ordering Physician: Performed By: Alysia [facility]adoM[facility] Interpretation Summary The ejection fraction is estimated to be 60-65%. There is moderate mitral annular calcification. There is trace tricuspid regurgitation. The right ventricular systolic pressure is estimated at 50 mmHg assuming a right atrial pressure of 3 mm Hg. Assessment & Plan 77-year-old female with past medical history of MN, TIA, insulin using diabetes with neuropathy, hyperlipidemia, hypertension, UTI with ESBL, and cholecystectomy 10/2016 who presents to the emergency room via EMS today due to acute change in mental status that began at 3 AM this morning as the patient awoke with a supraorbital headache. Imaging is negative of the brain with positive imaging of consolidation in her lungs consistent with pneumonia. TIA/stroke; present admission; ongoing -presents with confusing constellation of symptoms but there seems to be a neurological component -Other than the somnolence the patient's neurological symptoms improved between ED physician and admitting physician -CT brain was negative for bleed -Continue Atorvastatin 10 mg daily -We will continue Aspirin 325 mg daily -Lipid panel and A1c are pending -Permissive hypertension for 24 hours after admission; control>220 with labetalol. Now begin closer control of blood pressure as needed. -Pt already on plavix; will continue -MRA non-contrast lateral report is still pending -Received two 500 mL boluses -Continue Normal saline at 80 mL per hour -Lumbar puncture was clear without signs of infection. Hospital-acquired pneumonia; present on admission; ongoing -Patient was recently discharged last week and presents with new lung mass/ consolidation noted on CT and chest x-ray -Patient does not appear to be septic at this point but does have some confusion may show systemic infection without sepsis. White blood cell count has almost doubled since admission to 21,000. The white count is now down to 17 ,400. -Blood cultures obtained and are pending -Legionella and pneumococcal antigens ordered -Pro calcitonin ordered -We will continue Vancomycin and meropenem for now as patient has had resistant organisms isolated from urinary tract and has had Pseudomonas isolated from the sputum. -Repeat CBC -Patient has an ESBL producing Escherichia coli urinary tract infection, will continue Meropenem. -UA was contaminated and additional straight cath was ordered Acute on chronic kidney injury; present admission; ongoing -Baseline creatinine about 1.3 -Presents with creatinine 1.6. This is improved today to 1.1 -UA showed many bacteria and culture was sent. However, the urinalysis was negative for leukocyte esterase, nitrate or pyuria. -Fluid management as above Elevated transaminases and elevated lipase; present on admission; ongoing -Patient presents with mild elevations in liver functions with the exception of alkaline phosphatase. This is likely due to septicemia. We will repeat liver function test in a.m. -Patient has no complaints of abdominal pain -Hepatitis panel was run in October and no risk factors for infection -Patterns are not consistent with congestion or infarction -Possible bile stone and will order right upper quadrant ultrasound -Note: Patient had a cholecystectomy in October -We will check serial CMP's Diabetes, insulin using with neuropathy; present medicines; ongoing -Continue home lantus -Low correctional -A1c ordered Hypertension -Presents with elevated blood pressure; unsure if this is due to possible stroke or not taking her medications as morning -Continue home medications after 24 hours permissive hypertension Hyperlipidemia-statin CAD with MN-aspirin and Plavix Disposition: Patient will be here another 48-72 hours due to the severity of her symptoms, risk of adverse events and complexity of her treatment plan. Limited interventions: DO NOT INTUBATE Pain Evaluation: Adequate Pain Control VTE Mechanical Devices: Venous Foot Pump Resuscitation Status: Limited Interventions (DO NOT INTUBATE) Víctor Britton MD Jun 07, 2017 23:11
[2017-06-08] VITALS (11 sets, daily range): BP systolic 158–185; BP diastolic 55–76; PULSE 72–97; RESP 16–18; O2SAT 93–99
[2017-06-08] MEDS: Meropenem Inj 2,000 MG in 0.9% Sodium Chloride 100 ML IV SCH ×3 (02:38→19:19)
[2017-06-08] MEDS: Acetaminophen IV 1,000 MG in IV Premix 1 EACH IV PRN (03:11)
[2017-06-08] MEDS: 0.9% Sodium Chloride 1,000 ML IV SCH ×2 (04:46→19:11)
[2017-06-08 07:04] LABS: BASOPHILS % (AUTO) 0.3 % (0-3); MONOCYTES % (AUTO) 7.8 % (4-12); Mean Corpuscular Hemoglobin 26.8 pg (27.0-35.0); Mean Corpuscular Volume 85.4 fL (81-100); NEUTROPHILS % (AUTO) 77.8 % (40-74); Platelet Count 238 bil/L (150-400)
[2017-06-08 07:07] LABS: Magnesium 1.9 mg/dL (1.6-2.6)
[2017-06-08] MEDS: Insulin LISPRO 300 Unit/3 mL Inj SUBQ SCH ×4 (09:13→22:00)
[2017-06-08] MEDS: Insulin GLARgine 100 Unit/mL Syringe SUBQ SCH ×2 (09:27→22:19)
--- NOTE | 2017-06-08 23:10 | CONS ---
[address] [address] CONSULTATION REPORT PATIENT: HORACE BERRY : 1940 MR#: [id number] ADMIT: 06/05/2017 JOB ID: [id number] DATE OF SERVICE: 06/08/[address] Britton for this consult. REASON FOR CONSULTATION: New right-sided pneumonia and colonization and perhaps infection with ESBL organism in the urine. HISTORY OF PRESENT ILLNESS: The patient is an extraordinarily complex patient who is well known to me from a couple admissions over the past year. Most recently, she was here in May, and at that time the patient was complaining of diarrhea which was felt to be related to her cholecystectomy she had back in October. In any event, I was consulted earlier this month because the patient had been admitted for hydration and other issues and her stool PCR revealed a wide variety of possible anaerobic pathogens, including Shiga toxin producing E. coli which was not 0157, as well as astrovirus and rotavirus. This was on the heels of prior stool studies done in February that had also yielded rotavirus, as well as anaerobe pathogenic E. coli, and even earlier stool PCR in January which he had yielded norovirus. My conclusion at the time of the admission earlier this month was that these were probably all clinically insignificant except perhaps the Shiga producing E. coli and that we could not treat any of them because the hazards of precipitating hemolytic uremic syndrome if we treated the Shiga producing E. coli. As the patient was nontoxic, I recommended she be discharged without antibiotics. It was also notable during that admission about two weeks ago that she had an ESBL organism in her urine. This was not associated with any urinary tract symptoms and I recommended that it not be treated, partly because it was just asymptomatic bacteriuria and also because attempted treatment of the organism in the urine could precipitate a crisis given the presence of Shiga producing E. coli in the stool. The patient was subsequently discharged on May 29 and did well for about a week, only to develop severe headache, mild confusion, dizziness and lightheadedness. When she complained of these things and her family noted that she could not even carry on a conversation, they brought her to the emergency department for evaluation. They reported that this had been very sudden and that just a few hours before the onset of these symptoms in the inspector precision assembly hours of June 05 she had been completely normal. This raised concerns about a possible TIA or stroke, and she was evaluated for that, as well as possibility of PROBATION [employer]ROL [employer]ENT infection. As part of our workup in her three days here in the hospital, she has undergone many studies including lumbar puncture, blood cultures, chest x-ray, and additional urine cultures. These studies have yielded a confusing variety of results including what appears to be a largely asymptomatic but extensive right-sided pulmonary infiltrate, as well as continued presence of ESBL E. coli in the urine. In contrast to her admission earlier this month, the patient reports that at the time of this admission on June 05 she did have some dysuria and urgency, which were not present during her earlier admission. She does deny any significant shortness of breath, however, and states that she has not had any significant cough or pleuritic chest pain. She notes that she continues to have two or three loose stools a day, but this is becoming the new normal for her status post cholecystectomy and is not especially problematic. PAST MEDICAL HISTORY: 1. Hypertension. 2. Chronic renal insufficiency. 3. Type 2 diabetes. 4. Hyperlipidemia. 5. Asthma. 6. Status post cholecystectomy October 2016. 7. Diarrhea since January 2017. 8. Multiple pathogens identified by stool PCR studies over the past four months as noted in the history of present illness above. 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 She lives with her family in the local area. FAMILY HISTORY: Negative for TB in all first and second-degree relatives, but there is a history of diabetes in a sister. REVIEW OF SYSTEMS: The patient at this time states that this severe headache, which was the main cause of her emergency department visit on June 05, that led to this admission is much improved. There has been no visual change and had no more of the confusion which was reported by her family in the inspector precision assembly hours of June 05. At this point, she has a mild scratchy throat but it is not severe. She has no significant cough, though does state that the right side of her chest feels a bit congested as opposed to the left. There is no pleuritic chest pain per se and she is not short of breath. She is not having nausea or vomiting, and as noted, she has two or three loose stools a day. She does have some degree of dysuria and frequency which are new over the past few days. No swelling of the joints or trouble with her lower extremity or upper extremity strength. Remainder the review of systems is negative. PHYSICAL EXAMINATION: Reveals an afebrile woman, temp 37.7, pulse 82, respiratory rate 16, blood pressure 165/85. She is saturating well on room air. Examination of mental status tonight reveals it is completely clear. She is fully oriented and able to engage in extended conversation with no lapses or problems with word-finding. Her head is without trauma. Her eyes without conjunctivitis or scleral icterus. Oral cavity without thrush, hairy leukoplakia or pharyngitis. Her neck is reasonably supple. Her lungs are notable for some rales on the right side diffusely, left fairly clear. Cardiac tones: Regular rate and rhythm but distant heart sounds. Abdomen: Soft and nontender without organomegaly or ascites. No suprapubic fullness. No Vargas catheter is present. There is no evidence of synovitis. No significant cellulitis, skin abnormalities or rashes are seen. Her strength is good throughout all four extremities. There is no peripheral edema. LABORATORIES: Include a white blood count 14,500; down from 21,000 on June 06. The diff is still a bit left shifted 78% segs but better than 85% two days ago. Creatinine is 1.39, up from 1.1 yesterday. LFTs normal. Albumin 3.0. Procalcitonin was 2.03 on June 05, it has not been repeated. Urinalysis had no white cells again on this admission. Lumbar puncture had no white cells. Glucose 107, protein 43. Hep C antibody is negative. Hep B surface antigen negative. Additional studies include blood cultures from June 05 which are negative. Cerebral spinal fluid PCR negative. Pneumococcal antigen and Legionella antigen in urine is negative. Urine again grew ESBL E. coli sensitive only to ertapenem, imipenem, gent and nitrofurantoin. This is same organism that was isolated last time. MRSA screen is negative. I have reviewed the chest x-ray on the computer from June 05, which shows fairly extensive and new right-sided infiltrates consistent with pneumonia which was not present just a couple weeks ago. Additionally, we have an abdominopelvic CT scan which shows right lower lobe consolidation, as well as a possible nonobstructing left renal stone. An abdominal ultrasound was done which showed no abnormalities of the right upper quadrant, and a brain MRI has been done which did not reveal any notable new abnormalities. IMPRESSION: This continues to be a confusing case. Recall this is a patient who underwent cholecystectomy back in October and has had diarrhea now for several months. Every time we obtain stool studies we find numerous possible pathogens in the stool, but these do not seem to correlate much with her symptomatology, and I think that all the PCR positives in the stool up through the last admission in mid May are of little clinical significance. The main stool organism detected of concern is the Shiga producing Escherichia coli which might suggest some caution when giving broad-spectrum antibiotics. The patient was readmitted on the of this month because of sudden onset of confusion and severe headache. This would certainly sound more like a transient ischemic attack than anything else, but she was noted almost as an incidental finding to have a new right-sided pulmonary infiltrate. Additionally, the patient complained of some dysuria, which I think is probably not significant as she is chronically colonized apparently with this extended-spectrum beta-lactamase E. coli and does not have any pyuria. I suspect she still has an almost asymptomatic bacteriuria, even though she does report some mild symptoms. It is probably reasonable to pursue aggressive therapy for possible right-sided aspiration type pneumonia occurring in the setting of her recent hospital stay, but my concern here is that we could trigger a much worse process given her underlying Shiga toxin producing E. coli. RECOMMENDATIONS: 1. Will cautiously proceed with a short course of carbapenem, which the patient is so far tolerating. She is currently receiving meropenem which is reasonable as it will cover both the E. coli in the urine, which I do not think is a pathogen, as well as what probably is aspiration pneumonia. 2. I would not give the patient any vancomycin or specific methicillin-resistant Staphylococcus aureus therapy as we have no indication for that. 3. Total course of therapy could probably be about seven days, when we might consider a switch to ertapenem to facilitate discharge. 4. I will continue to follow this patient with you. 5. I would not submit a stool PCR unless something changes with respect to her diarrhea, as we are likely to find multiple confusing pathogens. Thank you very much this consult.
[2017-06-09] VITALS (8 sets, daily range): BP systolic 143–184; BP diastolic 63–70; PULSE 76–97; RESP 16–18; O2SAT 92–96
[2017-06-09] MEDS: Acetaminophen IV 1,000 MG in IV Premix 1 EACH IV PRN (02:07)
--- NOTE | 2017-06-09 02:19 | PCM.PNMED ---
Subjective Date of Service Jun 09, 2017 Subjective The patient is feeling a little bit better. However, she still periodically has shaking chills and is still not feeling well. Exam Vital Signs Vital Sign - Last Date Time Temp Pulse Resp B/P Pulse Ox O2 Delivery O2 Flow Rate FiO2 06/09/17 00:22 36.8 93 18 155/68 92 Room Air Intake and Output 06/08/17 06/08/17 06/09/17 Cumulative From/Thru 15:00 23:00 07:00 06/05/17 10:22 - 06/08/17 22:37 Intake Total 2392 ml 44044 ml Output Total 500 ml 4472 ml Balance 1892 ml 6506 ml Intake Oral 1050 ml 3701 ml IV Total 1342 ml 7277 ml Output Urine Total 500 ml 4172 ml Urine/Stool Mix 300 ml # Voids 1 8 # Bowel Movements 2 8 Exam General: Patient is resting comfortably laying supine in bed. However, staff states that she has been having shaking chills. HEENT: Head is atraumatic and normocephalic. Eyes: Pupils are equally round and reactive to light and accommodation. Extraocular muscles are intact. Sclera are white, anicteric. Subconjunctival mucosa is pink. Ears and nose are unremarkable. Oropharynx: There is no mucosal lesions, there is no thrush, there is no pharyngitis. Neck: Is supple, there are no nodes, or masses or tenderness. Chest: Is significant for rales at the right base approximately one third of the way up the lung field. Otherwise the lungs are clear. Heart: Rate, rhythm is regular. There is no new murmur, rub or gallop. Abdomen: Good bowel sounds are present. Abdomen is soft, nontender, no organomegaly or masses were appreciated. Extremities: Are symmetrical and well perfused. There is no edema, there is no cellulitis, no rash. Neurologic: There are no focal neurological deficits. Cranial nerves II through XII are intact. There are no sensory or motor deficits. The patient appears to have an essential tremor. Psychiatric: Patients mood is calm and shows no sign of agitation. Genital: Deferred Rectal: Deferred Lab and Diagnostics Result Diagram: 06/08/1715 06/08/17 0615 Microbiology Name: HORACE BERRY Susana Age/Sex: 77/F Attend Dr: Ridge Cruz Acct: [id number] Unit: [id number] Status: ADM [place] [facility] [place]25-1 Re06/05/17 Disch: Specimen: [id number] Collected: 06/05/17 Status: RES Req#: [id number] Received: 06/05/17 Source: URINE CC Sp Desc : MAGDALENE Soto Dr: Dariel Laguna MD Ordered: URINE CULT Procedure Result Verified Site Microbiology JUAN CULT URINE Preliminary 06/06/17 PRELIMINARY ID GRAM NEGATIVE DOE ID AND SENS TO FOLLOW COLONY COUNT/QUANTITY >100,000 CFU/ml X-Rays, CTs and MRIs CT abdomen and pelvis 1. Right lower lobe consolidation most likely represents pneumonia. Aspiration may also have this appearance. Please correlate clinically. 2. Air within a distended urinary bladder may be related to recent catheterization. Please correlate clinically to exclude cystitis. 3. Diverticulosis of the colon without diverticulitis. No bowel obstruction. 4. Questionable nonobstructing left renal calculus. No hydronephrosis or ureteral calculi. 5. Moderate-sized hiatal hernia. 6. Small fat containing periumbilical and right inguinal hernias. Dictated by: Devin Mercedes M.D. on 06/05/2017 at 11:[address] 1. No acute intracranial abnormality Dictated by: Malachi Pendleton M.D. on 06/05/2017 at 11:21 Chest X-ray 1. New confluent right air space opacities consistent with consolidation and likely reflecting pneumonia. Dictated by: Malachi Pendleton M.D. on 06/05/2017 at 11:49 PROCEDURE: MRA ANGIOGRAM HEAD WITHOUT CONTRAST ([id number]) INDICATIONS: DECREASED MENTATION TECHNIQUE: Noncontrast axial 3-D [id number] MR angiogram, with 3-dimensional maximum intensity projection (MIP) reformats of the internal carotid arteries and posterior circulation then performed. COMPARISON: [facility], MR, MR STROKE PROTOCOL, 07/05/2015, 14:45. [facility], CT, CT BRAIN WO CON, 06/05/2017, 10:59. FINDINGS: Image quality: Excellent. Anterior circulation: Intracranial internal carotid arteries demonstrate normal size and intraluminal flow signal. The flow within the paired anterior cerebral arteries is patent bilaterally. The flow within the middle cerebral arteries is patent bilaterally. The anterior communicating artery is patent. No focal stenoses, occlusions, or aneurysms. Posterior circulation: The basilar artery is supplied by the left vertebral artery. The mass artery appears patent along its course. The flow within the posterior cerebral arteries is patent bilaterally without focal stenoses. IMPRESSION: 1. No high-grade stenosis or occlusion of the central intracranial arteries. 2. Basilar artery supplied by the left vertebral artery. Finding is unchanged from the prior study and likely represents an anatomic variant Dictated by: Malachi Pendleton M.D. on 06/06/2017 at 10:34 Approved by: Malachi Pendleton M.D. on 06/06/2017 at 10:34 12-lead ECG . Sinus tachycardia . Probable left atrial enlargement . Probable LVH with secondary repol abnrm Cardiac Echo Impressions Echocardiogram Report Name: HORACE BERRY Date: Height: 61 in Hospital Exam Location: [facility] Weight: 148 lb Gender: Female BSA: 1.7 m2 : 1940 Age: 76 yrs BP: 181/76 mmHg Reason For Study: CVA Ordering Physician: Performed By: Alysia Longoria [facility] Interpretation Summary The ejection fraction is estimated to be 60-65%. There is moderate mitral annular calcification. There is trace tricuspid regurgitation. The right ventricular systolic pressure is estimated at 50 mmHg assuming a right atrial pressure of 3 mm Hg. Assessment & Plan The patient is a 77-year-old female with past medical history of AR, TIA, insulin using diabetes with neuropathy, hyperlipidemia, hypertension, UTI with ESBL, and cholecystectomy 10/2016 who presents to the emergency room via EMS today due to acute change in mental status that began at 3 AM this morning as the patient awoke with a supraorbital headache. Imaging is negative of the brain with positive imaging of consolidation in her lungs consistent with pneumonia. TIA/stroke; present admission; ongoing -presents with confusing constellation of symptoms. However, it appears that these are most likely due to sepsis from a urinary tract infection and pneumonia. -Other than the somnolence the patient's neurological symptoms improved between ED physician and admitting physician -CT brain was negative for bleed -Continue Atorvastatin 10 mg daily -We will continue Aspirin 325 mg daily -Lipid panel and A1c are pending -Permissive hypertension for 24 hours after admission; control>220 with labetalol. Now begin closer control of blood pressure as needed. -Pt already on plavix; will continue -MRA non-contrast lateral report is still pending -Received two 500 mL boluses -Continue Normal saline at 80 mL per hour -Lumbar puncture was clear without signs of infection. Hospital-acquired pneumonia; present on admission; ongoing -Patient was recently discharged last week and presents with new lung mass/ consolidation noted on CT and chest x-ray -Patient does not appear to be septic at this point but does have some confusion may show systemic infection without sepsis. White blood cell count has almost doubled since admission to 21,000. The white count is now down to 17 ,400. -Blood cultures obtained and are pending -Legionella and pneumococcal antigens ordered -Pro calcitonin ordered -We will continue Vancomycin and Meropenem for now as patient has had resistant organisms isolated from urinary tract and has had Pseudomonas isolated from the sputum. -Repeat CBC -Patient has an ESBL producing Escherichia coli urinary tract infection, will continue Meropenem. -UA was contaminated and additional straight cath was ordered Acute on chronic kidney injury; present admission; ongoing -Baseline creatinine about 1.3 -Presents with creatinine 1.6. This is improved today to 1.1 -UA showed many bacteria and culture was sent. However, the urinalysis was negative for leukocyte esterase, nitrate or pyuria. -Fluid management as above Elevated transaminases and elevated lipase; present on admission; ongoing -Patient presents with mild elevations in liver functions with the exception of alkaline phosphatase. This is likely due to septicemia. We will repeat liver function test in a.m. -Patient has no complaints of abdominal pain -Hepatitis panel was run in October and no risk factors for infection -Patterns are not consistent with congestion or infarction -Possible bile stone and will order right upper quadrant ultrasound -Note: Patient had a cholecystectomy in October -We will check serial CMP's Diabetes, insulin using with neuropathy; present medicines; ongoing -Continue home lantus -Low correctional -A1c ordered Hypertension -Presents with elevated blood pressure; unsure if this is due to possible stroke or not taking her medications as morning -Continue home medications after 24 hours permissive hypertension Hyperlipidemia-statin CAD with AR-aspirin and Plavix Disposition: Patient will be here another 48-72 hours due to the severity of her symptoms, risk of adverse events and complexity of her treatment plan. Dr. Covarrubias has been consulted for infectious disease. Dr. Dali will follow in a.m. Limited interventions: DO NOT INTUBATE Pain Evaluation: Adequate Pain Control VTE Prophylaxis: Sub-Q Enoxaparin VTE Mechanical Devices: Venous Foot Pump Resuscitation Status: Limited Interventions (DO NOT INTUBATE) Víctor Britton MD Jun 09, 2017 02:19
[2017-06-09] MEDS: Meropenem Inj 2,000 MG in 0.9% Sodium Chloride 100 ML IV SCH ×2 (03:21→10:40)
[2017-06-09 07:34] LABS: BASOPHILS % (AUTO) 0.5 % (0-3); EOSINOPHILS % (AUTO) 5.6 % (0-5); MONOCYTES % (AUTO) 10.2 % (4-12); Mean Corpuscular Hemoglobin 27.1 pg (27.0-35.0); NEUTROPHILS % (AUTO) 68.9 % (40-74); Platelet Count 281 bil/L (150-400)
[2017-06-09] MEDS: Insulin LISPRO 300 Unit/3 mL Inj SUBQ SCH ×4 (08:00→21:07)
[2017-06-09 08:07] LABS: Magnesium 1.8 mg/dL (1.6-2.6)
[2017-06-09] MEDS: 0.9% Sodium Chloride 1,000 ML IV SCH ×2 (08:59→19:15)
[2017-06-09] MEDS: Insulin GLARgine 100 Unit/mL Syringe SUBQ SCH ×2 (10:37→21:07)
--- NOTE | 2017-06-09 11:47 | PCM.PNMED ---
Subjective Date of Service Jun 09, 2017 Subjective Patient seen and examined. Doing much better today. Denies pain. Vitals stable. Exam Vital Signs Vital Sign - Last Date Time Temp Pulse Resp B/P Pulse Ox O2 Delivery O2 Flow Rate FiO2 06/09/17 10:50 97 06/09/17 10:04 36.8 18 145/68 95 Room Air Intake and Output 06/08/17 06/08/17 06/09/17 Cumulative From/Thru 15:00 23:00 07:00 06/05/17 10:22 - 06/09/17 06:40 Intake Total 2392 ml 1397 ml 42094 ml Output Total 500 ml 800 ml 5272 ml Balance 1892 ml 597 ml 7103 ml Intake Oral 1050 ml 550 ml 4251 ml IV Total 1342 ml 847 ml 8124 ml Output Urine Total 500 ml 800 ml 4972 ml Urine/Stool Mix 300 ml # Voids 1 2 10 # Bowel Movements 2 1 9 Exam General: Patient is resting comfortably laying supine in bed. However, staff states that she has been having shaking chills. Neck: Is supple, there are no nodes, or masses or tenderness. Chest: Is significant for rales at the right base approximately one third of the way up the lung field. Otherwise the lungs are clear. Heart: Rate, rhythm is regular. There is no new murmur, rub or gallop. Abdomen: Good bowel sounds are present. Abdomen is soft, nontender, no organomegaly or masses were appreciated. Neurologic: There are no focal neurological deficits. Cranial nerves II through XII are intact. There are no sensory or motor deficits. The patient appears to have an essential tremor. Psychiatric: Patients mood is calm and shows no sign of agitation. Lab and Diagnostics Result Diagram: 06/09/17 0650 06/09/17 0650 Microbiology Name: HORACE BERRY Age/Sex: 77/F Attend Dr: Ridge Cruz Acct: [id number] Unit: [id number] Status: ADM IN Location: [facility] [place] 3025-1 Re06/05/17 Disch: Specimen: [id number] Collected: 06/05/17 Status: RES Req#: [id number] Received: 06/05/17 Source: URINE CC Sp Desc : PP Brittany Dr: Dariel Laguna MD Ordered: URINE CULT Procedure Result Verified Site Microbiology JUAN CULT URINE Preliminary 06/06/17-735 PRELIMINARY ID GRAM NEGATIVE DOE ID AND SENS TO FOLLOW COLONY COUNT/QUANTITY >100,000 CFU/ml X-Rays, CTs and MRIs CT abdomen and pelvis 1. Right lower lobe consolidation most likely represents pneumonia. Aspiration may also have this appearance. Please correlate clinically. 2. Air within a distended urinary bladder may be related to recent catheterization. Please correlate clinically to exclude cystitis. 3. Diverticulosis of the colon without diverticulitis. No bowel obstruction. 4. Questionable nonobstructing left renal calculus. No hydronephrosis or ureteral calculi. 5. Moderate-sized hiatal hernia. 6. Small fat containing periumbilical and right inguinal hernias. Dictated by: Devin Mercedes M.D. on 06/05/2017 at 11:[address] 1. No acute intracranial abnormality Dictated by: Malachi Pendleton M.D. on 06/05/2017 at 11:21 Chest X-ray 1. New confluent right air space opacities consistent with consolidation and likely reflecting pneumonia. Dictated by: Malachi Pendleton M.D. on 06/05/2017 at 11:49 PROCEDURE: MRA ANGIOGRAM HEAD WITHOUT CONTRAST ([id number]) INDICATIONS: DECREASED MENTATION TECHNIQUE: Noncontrast axial 3-D [id number] MR angiogram, with 3-dimensional maximum intensity projection (MIP) reformats of the internal carotid arteries and posterior circulation then performed. COMPARISON: [facility], MR, MR STROKE PROTOCOL, 07/05/2015, 14:45. [facility], CT, CT BRAIN WO CON, 06/05/2017, 10:59. FINDINGS: Image quality: Excellent. Anterior circulation: Intracranial internal carotid arteries demonstrate normal size and intraluminal flow signal. The flow within the paired anterior cerebral arteries is patent bilaterally. The flow within the middle cerebral arteries is patent bilaterally. The anterior communicating artery is patent. No focal stenoses, occlusions, or aneurysms. Posterior circulation: The basilar artery is supplied by the left vertebral artery. The mass artery appears patent along its course. The flow within the posterior cerebral arteries is patent bilaterally without focal stenoses. IMPRESSION: 1. No high-grade stenosis or occlusion of the central intracranial arteries. 2. Basilar artery supplied by the left vertebral artery. Finding is unchanged from the prior study and likely represents an anatomic variant Dictated by: Malachi Pendleton M.D. on 06/06/2017 at 10:34 Approved by: Malachi Pendleton M.D. on 06/06/2017 at 10:34 12-lead ECG . Sinus tachycardia . Probable left atrial enlargement . Probable LVH with secondary repol abnrm Cardiac Echo Impressions Echocardiogram Report Name: HORACE BERRY Date: Height: 61 in Hospital Exam Location: [facility] Weight: 148 lb Gender: Female BSA: 1.7 m2 : 1940 Age: 76 yrs BP: 181/76 mmHg Reason For Study: CVA Ordering Physician: Performed By: [facility] Interpretation Summary The ejection fraction is estimated to be 60-65%. There is moderate mitral annular calcification. There is trace tricuspid regurgitation. The right ventricular systolic pressure is estimated at 50 mmHg assuming a right atrial pressure of 3 mm Hg. Assessment & Plan The patient is a 77-year-old female with past medical history of AR, TIA, insulin using diabetes with neuropathy, hyperlipidemia, hypertension, UTI with ESBL, and cholecystectomy 10/2016 who presents to the emergency room via EMS today due to acute change in mental status that began at 3 AM this morning as the patient awoke with a supraorbital headache. Imaging is negative of the brain with positive imaging of consolidation in her lungs consistent with pneumonia. TIA/stroke; present admission; resolved -presented with confusing constellation of symptoms. However, it appeared that these were most likely 2/2 urinary tract infection and pneumonia. -Other than the somnolence the patient's neurological symptoms improved between ED physician and admitting physician -CT brain was negative for bleed -Continue Atorvastatin 10 mg daily -We will continue Aspirin 325 mg daily -Lipid panel and A1c are pending -Permissive hypertension for 24 hours after admission; control>220 with labetalol. Now begin closer control of blood pressure as needed. -Pt already on plavix; will continue -MRA report as noted above -Continue Normal saline at 80 mL per hour Hospital-acquired pneumonia vs aspiration pneumonia; present on admission; ongoing -Patient was recently discharged last week and presents with new lung mass/ consolidation noted on CT and chest x-ray -Blood cultures obtained and are pending -Legionella and pneumococcal antigens ordered -Pro calcitonin 2.03 -Patient has an ESBL producing Escherichia coli urinary tract infection, will continue Meropenem. -ID on board appreciate recs Acute on chronic kidney injury; present admission; ongoing -Baseline creatinine about 1.3 -Presents with creatinine 1.6. trended down then up again. -Fluid management as above Elevated transaminases and elevated lipase; present on admission; resolved -Patient presents with mild elevations in liver functions with the exception of alkaline phosphatase. This is likely due to septicemia. -Patient has no complaints of abdominal pain -Hepatitis panel was run in October and no risk factors for infection Diabetes, insulin using with neuropathy; present medicines; ongoing -Continue home lantus -Low correctional -A1c 7.7 Hypertension -Presents with elevated blood pressure; unsure if this is due to possible stroke or not taking her medications as morning -Continue home medications after 24 hours permissive hypertension Hyperlipidemia-statin CAD with AR-aspirin and Plavix Disposition: Patient will be here another 48-72 hours due to the severity of her symptoms, risk of adverse events and complexity of her treatment plan. Dr. Covarrubias has been consulted for infectious disease. Limited interventions: DO NOT INTUBATE VTE Prophylaxis: Sub-Q Enoxaparin VTE Mechanical Devices: Venous Foot Pump Resuscitation Status: Limited Interventions (DO NOT INTUBATE) Time spent 35 mins Isaac Mcnally MD Jun 09, 2017 11:47 35 mins Isaac Mcnally MD Jun 09, 2017 11:47
--- NOTE | 2017-06-09 14:35 | PROG NOTE ---
[address] [address] PROGRESS NOTE PATIENT: HORACE BERRY : 1940 MR#: [id number] ADMIT: 06/05/2017 JOB ID: [id number] INFECTIOUS DISEASE FOLLOWUP: DATE: 06/09/2017 REASON FOR FOLLOWUP: Right-sided pneumonia, ESBL E. coli urinary colonization, and Shiga-producing E. coli. organism in stool. INTERVAL HISTORY: Overnight, the patient reports she is feeling quite well. She thinks she is about ready to go home. She currently denies fevers, chills, or sweats. She is having minimal dry cough and is not short of breath. No abdominal complaint. Her loose stools continue as they have been for months following her cholecystectomy. PHYSICAL EXAMINATION: Reveals an afebrile woman, temp 36.6, pulse 76, respiratory rate 16, blood pressure 155/63. She is saturating well on room air. She is in no distress at all. She moves around easily sitting up in bed without any assistance. Mental status is clear. Oral cavity benign. Lungs with rales at the right base which are quite unilateral. Cardiac tones without any murmur. Abdomen benign. LABORATORY DATA: Labs include a white count which is now normalized at 9700. She does have 5.6% eosinophils. Creatinine 1.6; that is the level she came in, though she did dip to 1.1 earlier. It is notable that her platelet count is normal at 281. LFTs normal. No new cultures are available. Recall that she did have ESBL E. coli in her urine. IMAGING: Her chest x-ray showed a new infiltrate which was not present on her admission just 10 days or so ago and it was thought to reflect pneumonia. Obviously the new chest x-ray infiltrate was not malignant, for example, as it arose over a very short period of time. IMPRESSION: This remains a confusing and strange case of a woman with diarrhea following cholecystectomy late last winter who has had many potential stool pathogens identified by PCR. This admission she presents with headache and what sounds like confusion and mental status changes which rapidly resolved. No neurologic explanation was found but the patient was noted to have a new right-sided infiltrate which is almost asymptomatic as well as continued ESBL E coli urinary colonization. The patient was started on carbapenem antibiotics by the team out of concern for possible nosocomial aspiration pneumonia and/or ESBL complicated urinary tract infection. At this point, I think the patient is reaching a point where she could be reasonably discharged. I would aim to keep her antibiotic course as short as possible given the fact she is colonized with Shiga-producing E. coli and this is intrinsically hazardous therapy. RECOMMENDATIONS: 1. We can continue the patient through tonight on meropenem. 2. The family and the patient agreed that they can bring her back and forth for a couple of days following discharge to complete a course of antibiotics. 3. Tomorrow morning, we will give the patient a single dose of IV ertapenem prior to discharge and she can return on June 11 and to the [facility] to complete a one-week course of carbapenem therapy there. 4. This case discussed in person with the hospitalist as well as with the patient and her extended family to ensure that these plans are reasonable. 5. Given that we have a plan in place, ID will go ahead and sign off at this time. 6. Note that this patient should have a followup chest x-ray in a few weeks to make sure this infiltrate has largely cleared.
[2017-06-09] MEDS ORDERED: Meropenem Inj 1,000 MG in 0.9% Sodium Chloride 100 ML IV SCH (19:00)
[2017-06-10] VITALS (7 sets, daily range): BP systolic 125–170; BP diastolic 55–63; PULSE 74–85; RESP 16–20; O2SAT 96–99
[2017-06-10] MEDS ORDERED: Meropenem Inj 1,000 MG in 0.9% Sodium Chloride 100 ML IV SCH (02:42)
[2017-06-10] MEDS: 0.9% Sodium Chloride 1,000 ML IV SCH ×2 (06:45→20:53)
[2017-06-10] MEDS: Insulin LISPRO 300 Unit/3 mL Inj SUBQ SCH ×4 (07:39→21:40)
[2017-06-10] MEDS: Insulin GLARgine 100 Unit/mL Syringe SUBQ SCH ×2 (08:09→20:53)
[2017-06-10] MEDS: Ertapenem Inj 500 MG in 0.9% Sodium Chloride 50 ML IV SCH (09:20)
--- NOTE | 2017-06-10 11:16 | PCM.PNMED ---
Subjective Date of Service Jun 10, 2017 Subjective Patient seen and examined. No complaints. Vitals stable. Exam Vital Signs Vital Sign - Last Date Time Temp Pulse Resp B/P Pulse Ox O2 Delivery O2 Flow Rate FiO2 06/10/17 11:04 85 06/10/17 09:32 36.8 18 125/55 97 Room Air Intake and Output 06/09/17 06/09/17 06/10/17 Cumulative From/Thru 15:00 23:00 07:00 06/05/17 10:22 - 06/10/17 06:21 Intake Total 1422 ml 1588 ml 452 ml 96791 ml Output Total 1400 ml 750 ml 7422 ml Balance 1422 ml 188 ml -298 ml 8415 ml Intake Oral 1030 ml 200 ml 5481 ml IV Total 1422 ml 558 ml 252 ml 83610 ml Output Urine Total 1400 ml 750 ml 7122 ml Urine/Stool Mix 300 ml # Voids 10 # Bowel Movements 1 1 11 Exam General: Patient is resting comfortably laying supine in bed. However, staff states that she has been having shaking chills. Neck: Is supple, there are no nodes, or masses or tenderness. Chest: Is significant for rales at the right base approximately one third of the way up the lung field. Otherwise the lungs are clear. Heart: Rate, rhythm is regular. There is no new murmur, rub or gallop. Abdomen: Good bowel sounds are present. Abdomen is soft, nontender, no organomegaly or masses were appreciated. Neurologic: There are no focal neurological deficits. Cranial nerves II through XII are intact. There are no sensory or motor deficits. The patient appears to have an essential tremor. Psychiatric: Patients mood is calm and shows no sign of agitation. Lab and Diagnostics Result Diagram: 06/09/17 0650 06/09/17 0650 Microbiology Name: HORACE BERRY Age/Sex: 77/F Attend Dr: Ridge Cruz Acct: [id number] Unit: [id number] Status: AD[place] [facility] [place] Re06/05/17 Disch: Specimen: [id number] Collected: 06/05/17 Status: RES Req#: [id number] Received: 06/05/17 Source: URINE CC Sp Desc : MAGDALENE Soto Dr: Dariel Laguna MD Ordered: URINE CULT Procedure Result Verified Site Microbiology JUAN CULT URINE Preliminary 06/06/17-735 PRELIMINARY ID GRAM NEGATIVE DOE ID AND SENS TO FOLLOW COLONY COUNT/QUANTITY >100,000 CFU/ml X-Rays, CTs and MRIs CT abdomen and pelvis 1. Right lower lobe consolidation most likely represents pneumonia. Aspiration may also have this appearance. Please correlate clinically. 2. Air within a distended urinary bladder may be related to recent catheterization. Please correlate clinically to exclude cystitis. 3. Diverticulosis of the colon without diverticulitis. No bowel obstruction. 4. Questionable nonobstructing left renal calculus. No hydronephrosis or ureteral calculi. 5. Moderate-sized hiatal hernia. 6. Small fat containing periumbilical and right inguinal hernias. Dictated by: Devin Mercedes M.D. on 06/05/2017 at 11:[address] 1. No acute intracranial abnormality Dictated by: Malachi Pendleton M.D. on 06/05/2017 at 11:21 Chest X-ray 1. New confluent right air space opacities consistent with consolidation and likely reflecting pneumonia. Dictated by: Malachi Pendleton M.D. on 06/05/2017 at 11:49 PROCEDURE: MRA ANGIOGRAM HEAD WITHOUT CONTRAST ([id number]) INDICATIONS: DECREASED MENTATION TECHNIQUE: Noncontrast axial 3-D [id number] MR angiogram, with 3-dimensional maximum intensity projection (MIP) reformats of the internal carotid arteries and posterior circulation then performed. COMPARISON: [facility], MR, MR STROKE PROTOCOL, 07/05/2015, 14:45. [facility], CT, CT BRAIN WO CON, 06/05/2017, 10:59. FINDINGS: Image quality: Excellent. Anterior circulation: Intracranial internal carotid arteries demonstrate normal size and intraluminal flow signal. The flow within the paired anterior cerebral arteries is patent bilaterally. The flow within the middle cerebral arteries is patent bilaterally. The anterior communicating artery is patent. No focal stenoses, occlusions, or aneurysms. Posterior circulation: The basilar artery is supplied by the left vertebral artery. The mass artery appears patent along its course. The flow within the posterior cerebral arteries is patent bilaterally without focal stenoses. IMPRESSION: 1. No high-grade stenosis or occlusion of the central intracranial arteries. 2. Basilar artery supplied by the left vertebral artery. Finding is unchanged from the prior study and likely represents an anatomic variant Dictated by: Malachi Pendleton M.D. on 06/06/2017 at 10:34 Approved by: Malachi Pendleton M.D. on 06/06/2017 at 10:34 12-lead ECG . Sinus tachycardia . Probable left atrial enlargement . Probable LVH with secondary repol abnrm Cardiac Echo Impressions Echocardiogram Report Name: HORACE BERRY Date: Height: 61 in Hospital Exam Location: [facility] Weight: 148 lb Gender: Female BSA: 1.7 m2 : 1940 Age: 76 yrs BP: 181/76 mmHg Reason For Study: CVA Ordering Physician: Performed By: [facility] Interpretation Summary The ejection fraction is estimated to be 60-65%. There is moderate mitral annular calcification. There is trace tricuspid regurgitation. The right ventricular systolic pressure is estimated at 50 mmHg assuming a right atrial pressure of 3 mm Hg. Assessment & Plan The patient is a 77-year-old female with past medical history of CO, TIA, insulin using diabetes with neuropathy, hyperlipidemia, hypertension, UTI with ESBL, and cholecystectomy 10/2016 who presents to the emergency room via EMS today due to acute change in mental status that began at 3 AM this morning as the patient awoke with a supraorbital headache. Imaging is negative of the brain with positive imaging of consolidation in her lungs consistent with pneumonia. Hospital-acquired pneumonia vs aspiration pneumonia; present on admission; ongoing -Patient was recently discharged last week and presents with new lung mass/ consolidation noted on CT and chest x-ray -Blood cultures obtained and are pending -Legionella and pneumococcal antigens ordered -Pro calcitonin 2.03 -Patient has an ESBL producing Escherichia coli urinary tract infection, will continue ertapenem for 2 more days. -ID on board, appreciate recs Acute on chronic kidney injury; present admission; ongoing -Baseline creatinine about 1.3 -Presents with creatinine 1.6. trended down then up again. Will get another bmp today -Fluid management TIA/stroke; present admission; resolved -presented with confusing constellation of symptoms. However, it appeared that these were most likely 2/2 urinary tract infection and pneumonia. -Other than the somnolence the patient's neurological symptoms improved between ED physician and admitting physician -CT brain was negative for bleed -Continue Atorvastatin 10 mg daily -We will continue Aspirin 325 mg daily -Lipid panel and A1c are pending -Permissive hypertension for 24 hours after admission; control>220 with labetalol. Now begin closer control of blood pressure as needed. -Pt already on plavix; will continue -MRA report as noted above -Continue Normal saline at 80 mL per hour Elevated transaminases and elevated lipase; present on admission; resolved -Patient presents with mild elevations in liver functions with the exception of alkaline phosphatase. This is likely due to septicemia. -Patient has no complaints of abdominal pain -Hepatitis panel was run in October and no risk factors for infection Diabetes, insulin using with neuropathy; present medicines; ongoing -Continue home lantus -Low correctional -A1c 7.7 Hypertension -Presents with elevated blood pressure; unsure if this is due to possible stroke or not taking her medications as morning -Continue home medications after 24 hours permissive hypertension Hyperlipidemia-statin CAD with CO-aspirin and Plavix Disposition: Patient will be here another 48-72 hours due to the severity of her symptoms, risk of adverse events and complexity of her treatment plan. Dr. Covarrubias has been consulted for infectious disease. Limited interventions: DO NOT INTUBATE VTE Prophylaxis: Sub-Q Enoxaparin VTE Mechanical Devices: Venous Foot Pump Resuscitation Status: Limited Interventions (DO NOT INTUBATE) Time spent 35 mins Isaac Mcnally MD Jun 10, 2017 11:16
[2017-06-11 05:25] VITALS: BP 157/63; PULSE 73; RESP 18; O2SAT 97
[2017-06-11] MEDS: Insulin GLARgine 100 Unit/mL Syringe SUBQ SCH ×2 (09:00→22:01)
[2017-06-11] MEDS: Insulin LISPRO 300 Unit/3 mL Inj SUBQ SCH ×4 (09:01→22:00)
[2017-06-11] MEDS: Ertapenem Inj 500 MG in 0.9% Sodium Chloride 50 ML IV SCH (09:04)
--- NOTE | 2017-06-11 13:02 | PCM.PNMED ---
Subjective Date of Service Jun 11, 2017 Subjective Patient seen and examined. Doing good. Vitals stable. Exam Vital Signs Vital Sign - Last Date Time Temp Pulse Resp B/P Pulse Ox O2 Delivery O2 Flow Rate FiO2 06/11/17 05:25 36.6 73 18 157/63 97 Room Air Intake and Output 06/10/17 06/10/17 06/11/17 Cumulative From/Thru 15:00 23:00 07:00 06/05/17 10:22 - 06/11/17 06:24 Intake Total 368 ml 2050 ml 473 ml 08606 ml Output Total 1200 ml 8622 ml Balance 368 ml 2050 ml -727 ml 53605 ml Intake Oral 2050 ml 473 ml 8004 ml IV Total 368 ml 12631 ml Output Urine Total 1200 ml 8322 ml Urine/Stool Mix 300 ml # Voids 6 16 # Bowel Movements 1 2 14 Exam General: Patient is resting comfortably laying supine in bed. However, staff states that she has been having shaking chills. Neck: Is supple, there are no nodes, or masses or tenderness. Chest: Is significant for rales at the right base approximately one third of the way up the lung field. Otherwise the lungs are clear. Heart: Rate, rhythm is regular. There is no new murmur, rub or gallop. Abdomen: Good bowel sounds are present. Abdomen is soft, nontender, no organomegaly or masses were appreciated. Neurologic: There are no focal neurological deficits. Cranial nerves II through XII are intact. There are no sensory or motor deficits. The patient appears to have an essential tremor. Psychiatric: Patients mood is calm and shows no sign of agitation. Lab and Diagnostics Result Diagram: 06/09/17 0650 06/11/17 0620 Microbiology Name: KRISTIHORACE Susana Age/Sex: 77/F Attend Dr: Ridge Cruz Acct: [id number] Unit: [id number] Status: ADM IN Location: [place] [id number] Re06/05/17 Disch: Specimen: [id number] Collected: 06/05/17 Status: RES Req#: [id number] Received: 06/05/17 Source: URINE CC Sp Desc : MAGDALENE Soto Dr: Dariel Laguna MD Ordered: URINE CULT Procedure Result Verified Site Microbiology JUAN CULT URINE Preliminary 06/06/17-735 PRELIMINARY ID GRAM NEGATIVE DOE ID AND SENS TO FOLLOW COLONY COUNT/QUANTITY >100,000 CFU/ml X-Rays, CTs and MRIs CT abdomen and pelvis 1. Right lower lobe consolidation most likely represents pneumonia. Aspiration may also have this appearance. Please correlate clinically. 2. Air within a distended urinary bladder may be related to recent catheterization. Please correlate clinically to exclude cystitis. 3. Diverticulosis of the colon without diverticulitis. No bowel obstruction. 4. Questionable nonobstructing left renal calculus. No hydronephrosis or ureteral calculi. 5. Moderate-sized hiatal hernia. 6. Small fat containing periumbilical and right inguinal hernias. Dictated by: Devin Mercedes M.D. on 06/05/2017 at 11:[address] 1. No acute intracranial abnormality Dictated by: Malachi Pendleton M.D. on 06/05/2017 at 11:21 Chest X-ray 1. New confluent right air space opacities consistent with consolidation and likely reflecting pneumonia. Dictated by: Malachi Pendleton M.D. on 06/05/2017 at 11:49 PROCEDURE: MRA ANGIOGRAM HEAD WITHOUT CONTRAST ([id number]) INDICATIONS: DECREASED MENTATION TECHNIQUE: Noncontrast axial 3-D [id number] MR angiogram, with 3-dimensional maximum intensity projection (MIP) reformats of the internal carotid arteries and posterior circulation then performed. COMPARISON: [facility], MR, MR STROKE PROTOCOL, 07/05/2015, 14:45. [facility], CT, CT BRAIN WO CON, 06/05/2017, 10:59. FINDINGS: Image quality: Excellent. Anterior circulation: Intracranial internal carotid arteries demonstrate normal size and intraluminal flow signal. The flow within the paired anterior cerebral arteries is patent bilaterally. The flow within the middle cerebral arteries is patent bilaterally. The anterior communicating artery is patent. No focal stenoses, occlusions, or aneurysms. Posterior circulation: The basilar artery is supplied by the left vertebral artery. The mass artery appears patent along its course. The flow within the posterior cerebral arteries is patent bilaterally without focal stenoses. IMPRESSION: 1. No high-grade stenosis or occlusion of the central intracranial arteries. 2. Basilar artery supplied by the left vertebral artery. Finding is unchanged from the prior study and likely represents an anatomic variant Dictated by: Malachi Pendleton M.D. on 06/06/2017 at 10:34 Approved by: Malachi Pendleton M.D. on 06/06/2017 at 10:34 12-lead ECG . Sinus tachycardia . Probable left atrial enlargement . Probable LVH with secondary repol abnrm Cardiac Echo Impressions Echocardiogram Report Name: HORACE BERRY Date: Height: 61 in Hospital Exam Location: [facility] Weight: 148 lb Gender: Female BSA: 1.7 m2 : 1940 Age: 76 yrs BP: 181/76 mmHg Reason For Study: CVA Ordering Physician: Performed By: [facility] Interpretation Summary The ejection fraction is estimated to be 60-65%. There is moderate mitral annular calcification. There is trace tricuspid regurgitation. The right ventricular systolic pressure is estimated at 50 mmHg assuming a right atrial pressure of 3 mm Hg. Assessment & Plan The patient is a 77-year-old female with past medical history of DC, TIA, insulin using diabetes with neuropathy, hyperlipidemia, hypertension, UTI with ESBL, and cholecystectomy 10/2016 who presents to the emergency room via EMS today due to acute change in mental status that began at 3 AM this morning as the patient awoke with a supraorbital headache. Imaging is negative of the brain with positive imaging of consolidation in her lungs consistent with pneumonia. Hospital-acquired pneumonia vs aspiration pneumonia; present on admission; resolving -Patient was recently discharged recently and presents with new lung mass/ consolidation noted on CT and chest x-ray -Blood cultures obtained and are pending -Legionella and pneumococcal antigens ordered -Pro calcitonin 2.03 -Patient has an ESBL producing Escherichia coli urinary tract infection, will continue ertapenem for 1 more day. -ID on board, appreciate recs Acute on chronic kidney injury; present admission; ongoing -Baseline creatinine about 1.3 -Trending down -Fluid management TIA/stroke; present admission; resolved -presented with confusing constellation of symptoms. However, it appeared that these were most likely 2/2 urinary tract infection and pneumonia. -Other than the somnolence the patient's neurological symptoms improved between ED physician and admitting physician -CT brain was negative for bleed -Continue Atorvastatin 10 mg daily -We will continue Aspirin 325 mg daily -Permissive hypertension for 24 hours after admission; control>220 with labetalol. Now begin closer control of blood pressure as needed. -Pt already on plavix; will continue -MRA report as noted above -Continue Normal saline at 80 mL per hour Elevated transaminases and elevated lipase; present on admission; resolved -Patient presents with mild elevations in liver functions with the exception of alkaline phosphatase. This is likely due to septicemia. -Patient has no complaints of abdominal pain -Hepatitis panel was run in October and no risk factors for infection Diabetes, insulin using with neuropathy; present medicines; ongoing -Continue home lantus -Low correctional -A1c 7.7 Hypertension -on amlodipine at home - continue Hyperlipidemia-statin CAD with [place]-aspirin and Plavix Disposition: Tomorrow home with home health Limited interventions: DO NOT INTUBATE VTE Prophylaxis: Sub-Q Enoxaparin VTE Mechanical Devices: Venous Foot Pump Resuscitation Status: Limited Interventions (DO NOT INTUBATE) Time spent 35 mins Isaac Mcnally MD Jun 11, 2017 13:02 Isaac Mcnally MD Jun 11, 2017 13:02
[2017-06-11 13:33] VITALS: BP 140/60; PULSE 72; RESP 18; O2SAT 95
[2017-06-11] MEDS: 0.9% Sodium Chloride 1,000 ML IV SCH (16:32)
[2017-06-11] MEDS: Heparin 5,000 Unit/mL Inj SUBQ SCH (17:10)
[2017-06-11 21:51] VITALS: BP 166/66; PULSE 82; RESP 16; O2SAT 94
[2017-06-12] MEDS: Heparin 5,000 Unit/mL Inj SUBQ SCH ×2 (00:29→09:37)
[2017-06-12 00:37] VITALS: BP 160/63; PULSE 85; RESP 16; O2SAT 96
[2017-06-12 04:30] VITALS: BP 157/63; PULSE 79; RESP 16; O2SAT 97
[2017-06-12] MEDS: 0.9% Sodium Chloride 1,000 ML IV SCH (05:31)
[2017-06-12 07:22] LABS: BASOPHILS % (AUTO) 0.6 % (0-3); EOSINOPHILS % (AUTO) 15.3 % (0-5); MONOCYTES % (AUTO) 8.8 % (4-12); Mean Corpuscular Hemoglobin 26.8 pg (27.0-35.0); Mean Corpuscular Volume 85.2 fL (81-100); Platelet Count 327 bil/L (150-400)
[2017-06-12] MEDS: Insulin LISPRO 300 Unit/3 mL Inj SUBQ SCH ×2 (07:39→11:51)
[2017-06-12 09:29] VITALS: BP 160/60; PULSE 77; RESP 18; O2SAT 98
[2017-06-12] MEDS: Ertapenem Inj 500 MG in 0.9% Sodium Chloride 50 ML IV SCH (09:34)
[2017-06-12] MEDS: Insulin GLARgine 100 Unit/mL Syringe SUBQ SCH (10:46)
[2017-06-12] MEDS ORDERED: Butalbital-Acet-Caffeine Tablet PO PRN (11:00)
--- NOTE | 2017-06-12 13:19 | PCM.DIMED ---
Discharge Instructions Date of Service Jun 12, 2017 Dates of Hospitalization Jun 05, 2017 at 14:31 Discharge Diagnosis Discharge Diagnosis Pneumonia UTI Diet Discharge Diet: Low fat, Low Sodium, Heart Healthy Activity Discharge Activity: No restrictions Call your provider Call your provider for: Fever or Chills, Shortness of breath, Excessive diarrhea Patient Instructions Follow-up with PCP in: 1 week (Follow up CXR in 3-4 weeks) Isaac Mcnally MD Jun 12, 2017 13:19
--- NOTE | 2017-06-12 13:32 | PCM.DC.MED ---
Discharge Summary Date of Service Jun 12, 2017 Dates of Hospitalization Date of Hospital Admission Jun 05, 2017 at 14:31 Date of Discharge: Jun 12, 2017 Providers: Admitting Physician: Ridge Jacob Primary Care Physician: Jovana Estrada MD Attending Physician: Isaac Mcnally MD Diagnosis at Time of Discharge Diagnosis at Time of Discharge Pneumonia UTI Procedures XRay, CTs & MRIs CT abdomen and pelvis 1. Right lower lobe consolidation most likely represents pneumonia. Aspiration may also have this appearance. Please correlate clinically. 2. Air within a distended urinary bladder may be related to recent catheterization. Please correlate clinically to exclude cystitis. 3. Diverticulosis of the colon without diverticulitis. No bowel obstruction. 4. Questionable nonobstructing left renal calculus. No hydronephrosis or ureteral calculi. 5. Moderate-sized hiatal hernia. 6. Small fat containing periumbilical and right inguinal hernias. Dictated by: Devin Mercedes M.D. on 06/05/2017 at 11:[address] 1. No acute intracranial abnormality Dictated by: Malachi Pendleton M.D. on 06/05/2017 at 11:21 Chest X-ray 1. New confluent right air space opacities consistent with consolidation and likely reflecting pneumonia. Dictated by: Malachi Pendleton M.D. on 06/05/2017 at 11:49 PROCEDURE: MRA ANGIOGRAM HEAD WITHOUT CONTRAST ([id number]) INDICATIONS: DECREASED MENTATION TECHNIQUE: Noncontrast axial 3-D [id number] MR angiogram, with 3-dimensional maximum intensity projection (MIP) reformats of the internal carotid arteries and posterior circulation then performed. COMPARISON: [facility], MR, MR STROKE PROTOCOL, 07/05/2015, 14:45. [facility], CT, CT BRAIN WO CON, 06/05/2017, 10:59. FINDINGS: Image quality: Excellent. Anterior circulation: Intracranial internal carotid arteries demonstrate normal size and intraluminal flow signal. The flow within the paired anterior cerebral arteries is patent bilaterally. The flow within the middle cerebral arteries is patent bilaterally. The anterior communicating artery is patent. No focal stenoses, occlusions, or aneurysms. Posterior circulation: The basilar artery is supplied by the left vertebral artery. The mass artery appears patent along its course. The flow within the posterior cerebral arteries is patent bilaterally without focal stenoses. IMPRESSION: 1. No high-grade stenosis or occlusion of the central intracranial arteries. 2. Basilar artery supplied by the left vertebral artery. Finding is unchanged from the prior study and likely represents an anatomic variant Dictated by: Malachi Pendleton M.D. on 06/06/2017 at 10:34 Approved by: Malachi Pendleton M.D. on 06/06/2017 at 10:34 ECG 12 Lead . Sinus tachycardia . Probable left atrial enlargement . Probable LVH with secondary repol abnrm Cardiac Echo Impression Echocardiogram Report Name: HORACE BERRY OStudy Date: Height: 61 in Hospital Exam Location: [facility] Weight: 148 lb Gender: Female BSA: 1.7 m2 : 1940 Age: 76 yrs BP: 181/76 mmHg Reason For Study: CVA Ordering Physician: Performed By: Alysia GuardadoHamilton [facility] HospitalIST [facility] Interpretation Summary The ejection fraction is estimated to be 60-65%. There is moderate mitral annular calcification. There is trace tricuspid regurgitation. The right ventricular systolic pressure is estimated at 50 mmHg assuming a right atrial pressure of 3 mm Hg. Brief History 77-year-old female with past medical history of NM, TIA, insulin using diabetes with neuropathy, hyperlipidemia, hypertension, UTI with ESBL, and cholecystectomy 10/2016 who presents to the emergency room via EMS today due to acute change in mental status that began at 3 AM this morning as the patient awoke with a supraorbital headache. Patient states that at that time she felt weak, mildly dizzy, and lightheaded. Patient was able to get up and moved to the living room but stopped responding appropriately and was unable to carry on a conversation with her when he questioned her. She denied any additional chest pain, shortness of breath, nausea, vomiting, diarrhea, cough, sputum, abdominal pain, fever, chills, or dysuria/hematuria. called EMS , reportedly a subjective fever, and the patient was brought to the hospital. Per discussion with the daughters families this is very unusual for her as her baseline is usually very social. They state last night there with her playing games until 11 at night. Yesterday she cleaned her house which she is not supposed to do but denies using anything other than [place]. Patient has underlying neuropathy and complains of tingling in all 4 extremities that is not at baseline. In emergency room imaging identified lower lobe consolidations consistent with pneumonia, and the patient was satting 91% on room air. Patient is also hypertensive and tachycardic with only a mild leukocytosis. Respiratory PCR was molina negative and blood cultures were obtained. Urine culture was also requested due to recent history of ESBL, however antibiotics given before an adequate sample could be obtained. Brain CT was negative for bleed. On neurologic exam is noted left and right lower extremity drifts and the patient was unable to perform finger to nose with the emergency room doctor. Hospital Course The patient is a 77-year-old female with past medical history of NM, TIA, insulin using diabetes with neuropathy, hyperlipidemia, hypertension, UTI with ESBL, and cholecystectomy 10/2016 who presents to the emergency room via EMS today due to acute change in mental status that began at 3 AM this morning as the patient awoke with a supraorbital headache. Imaging is negative of the brain with positive imaging of consolidation in her lungs consistent with pneumonia. Hospital-acquired pneumonia vs aspiration pneumonia; present on admission; resolving -Patient was recently discharged recently and presents with new consolidation noted on CT and chest x-ray -Patient has an ESBL producing Escherichia coli urinary tract infection, as well - been treated with broad spectrum (carbepenems) for 1 week -ID saw the patient, appreciate help with treatment and recs - patient to do follow up CXR outpatient - incentive spirometery Acute on chronic kidney injury; present admission; ongoing -Baseline creatinine~ 1.3 -Trending down TIA/stroke; present admission; resolved -presented with confusing constellation of symptoms. However, it appeared that these were most likely 2/2 urinary tract infection and pneumonia. -Other than the somnolence the patient's neurological symptoms improved between ED physician and admitting physician -CT brain was negative for bleed -Continue Atorvastatin 10 mg daily -We will continue Aspirin 325 mg daily -Pt already on plavix; will continue Elevated transaminases and elevated lipase; present on admission; resolved -Patient presents with mild elevations in liver functions with the exception of alkaline phosphatase. This is likely due to septicemia. -Patient has no complaints of abdominal pain -Hepatitis panel was run in October and no risk factors for infection Diabetes, insulin using with neuropathy; present medicines; ongoing -Continue home lantus -Low correctional -A1c 7.7 Hypertension -on amlodipine at home - continue Hyperlipidemia-statin CAD with NM-aspirin and Plavix Disposition: Tomorrow home with home health Limited interventions: DO NOT INTUBATE Exam Vital Signs (Last) Date Time Temp Pulse Resp B/P Pulse Ox O2 Delivery O2 Flow Rate FiO2 06/12/17 09:29 36.7 77 18 160/60 98 Room Air Test 06/05/17 10:15 06/05/17 11:26 06/05/17 12:28 06/05/17 14:20 Hemoglobin A1c 7.7% (4.8-5.6) Troponin T < 0.010ug/L (0.0-0.011) Triglycerides Level 223mg/dL (0-149) Cholesterol Level 144mg/dL (100-199) LDL Cholesterol, Calculated 57.400mg/dL (0-99) VLDL Cholesterol 44.600mg/dL HDL Cholesterol 42mg/dL (>39) Cholesterol/HDL Ratio 3.43 (0.0-4.4) Lipase 174U/L (13-60) Procalcitonin 2.03ng/mL (0.00-0.08) Lactic Acid Level 1.4mmol/L (0.4-2.0) CSF Appearance Clear (CLEAR) CSF Color Colorless (COLORLESS) CSF WBC 0/mm3 (0-5) CSF RBC 0/mm3 CSF Mononuclear WBCs % CSF Polynuclear WBCs % CSF Other Cells CSF Glucose 107mg/dL (45-90) CSF Total Protein 43mg/dL (15-45) Urine Legionella pneumophilia Ag Negative (Negative) Test 06/05/17 14:25 06/09/17 06:50 06/12/17 06:40 Urine Color Straw (YELLOW) Urine Appearance Slightly cloudy Urine pH 5.0 (5.0-8.0) Urine Specific [place] 1.015 (1.003-1.035) Urine Protein 100mg/dL (NEG,TRACE) Urine Glucose (UA) Negativemg/dL (NEGATIVE) Urine Ketones Negativemg/dL (NEGATIVE) Urine Occult Blood Small (NEGATIVE) Urine Nitrite Negative (NEGATIVE) Urine Bilirubin Negative (NEGATIVE) Urine Urobilinogen Normalmg/dL (NORMAL) Urine Leukocyte Esterase Negative (NEGATIVE) Urine RBC 0-2/hpf (0-2) Urine WBC 0-5/hpf (0-5) Urine Epithelial Cells Few/hpf (NONE-MOD) Urine Crystals None seen (NONE SEEN) Urine Bacteria Many/hpf (NONE-FEW) Urine Hyaline Casts None/lpf (NONE) Urine Granular Casts None seen (NONE SEEN) Urine Waxy Casts None seen (NONE SEEN) Urine Red Blood Cell Casts None seen (NONE SEEN) Urine White Blood Cell Casts None seen (NONE SEEN) Urine Mucus Present (None Seen) Urine Trichomonas None seen (NONE SEEN) Urine Yeast None (NONE SEEN) Urinalysis Comment None Urine Culture Reflexed Indicated Magnesium Level 1.8mg/dL (1.6-2.6) Total Bilirubin 0.3mg/dL (0.0-1.2) Aspartate Amino Transf (AST/SGOT) 24U/L (0-50) Alanine Aminotransferase (ALT/SGPT) 19U/L (0-32) Alkaline Phosphatase 102U/L (25-165) Total Protein 6.2g/dL (6.4-8.4) Albumin 3.0g/dL (3.4-5.0) White Blood Count 6.9th/mm3 (3.8-10.1) Red Blood Count 3.32mil/mm3 (3.90-5.20) Hemoglobin 8.9g/dL (12.0-15.6) Hematocrit 28.3% (35.0-46.0) Mean Corpuscular Volume 85.2fL (81-100) Mean Corpuscular Hemoglobin 26.8pg (27.0-35.0) Mean Corpuscular Hemoglobin Concent 31.4% (32.0-37.0) Red Cell Distribution Width 13.6% (12.3-15.4) Platelet Count 327bil/L (150-400) Neutrophils (%) (Auto) 53.0% (40-74) Lymphocytes (%) (Auto) 20.1% (14-46) Monocytes (%) (Auto) 8.8% (4-12) Eosinophils (%) (Auto) 15.3% (0-5) Basophils (%) (Auto) 0.6% (0-3) Sodium Level 140mEq/L (134-144) Potassium Level 4.3mEq/L (3.5-5.2) Chloride Level 108mEq/L (97-108) Carbon Dioxide Level 18mmol/L (18-29) Blood Urea Nitrogen 21mg/dL (8-27) Creatinine 1.53mg/dL (0.57-1.00) Estimat Glomerular Filtration Rate 47mL/min (>59) Glucose Level 120mg/dL (60-99) Calcium Level 8.8mg/dL (8.5-10.1) Microbiology Results Name: HORACE BERRY Age/Sex: 77/F Attend Dr: Ridge Jacob Acct: [id number] Unit: [id number] Status: ADM IN Location: [facility] [place] 3025-1 Re06/05/17 Disch: Specimen: [id number] Collected: 06/05/17 Status: RES Req#: [id number] Received: 06/05/17 Source: URINE CC Sp Desc : MAGDALENE Soto Dr: Dariel Laguna MD Ordered: URINE CULT Procedure Result Verified Site Microbiology JUAN CULT URINE Preliminary 06/06/17-735 PRELIMINARY ID GRAM NEGATIVE DOE ID AND SENS TO FOLLOW COLONY COUNT/QUANTITY >100,000 CFU/ml Discharge Medications Discharge Medications Amlodipine (Amlodipine) 5 Mg Tablet 10 MG PO DAILY (Reported) Atorvastatin (Lipitor) 10 Mg Tab 10 MG PO HS (Reported) Cholecalciferol (Vitamin D3) (Vitamin D3) 2,000 Unit Capsule 2,000 UNIT PO DAILY (Reported) Clopidogrel (Clopidogrel) 75 Mg Tablet 75 MG PO DAILY Prescribed by: RIDGE JACOB MD Ferrous Sulfate (Ferrous Sulfate) 324 Mg Tablet.dr 324 MG PO DAILY (Reported) Gabapentin (Gabapentin) 100 Mg Capsule 100-200 MG PO HS (Reported) Insulin Glargine (Lantus U100 Insulin Vial) 100 Unit/Ml Vial 15 UNIT SUBQ BID ( Reported) Ipratropium [place] (Atrovent HFA) 200 Puff/12.9 Gm Inhaler 2 PUFF INH QID ( Reported) Labetalol (Labetalol) 300 Mg Tablet 300 MG PO TID (Reported) Montelukast (Montelukast) 10 Mg Tablet 10 MG PO HS (Reported) Pantoprazole (Pantoprazole DR) 40 Mg Tablet.dr 40 MG PO DAILY (Reported) Ranitidine (Ranitidine) 150 Mg Capsule 150 MG PO BID (Reported) As needed Albuterol HFA (Proair HFA) 8.5 Gm Hfa.aer.ad 2 PUFFS INHALATION TID PRN PRN For Shortness of Breath (Reported) Beclomethasone Dipropionate (Qvar) 8.7 Gm Aer.w.adap 2 PUFF INHALATION BID PRN PRN For Wheezing (Reported) Ondansetron (Ondansetron) 8 Mg Tablet 8 MG PO Q8H PRN PRN For Nausea (Reported) Followup Plan Discharge Diet: Low fat, Low Sodium, Heart Healthy Discharge Activity: No restrictions Follow-up with PCP in: 1 week Time spent 35 mins Isaac Mcnally MD Jun 12, 2017 13:32 Isaac Mcnally MD Jun 12, 2017 13:32
== END 2017-06-12 15:22 | disposition home health service (06) | DRG 178 ==
LOC: SED 10:05 → EDBD 10:05 → OSC 14:31 → MPC 16:48
PROVIDERS: ADMIT Internal Medicine; ATTEND Internal Medicine
PROC: 009U3ZX Drainage of Spinal Canal, Percutaneous Approach, Diagnostic (ICD-10-PCS; principal; 2017-06-05)
DX: J69.0 Pneumonitis due to inhalation of food and vomit (principal); N39.0 Urinary tract infection, site not specified; N17.9 Acute kidney failure, unspecified; E78.5 Hyperlipidemia, unspecified; I25.2 Old myocardial infarction; Z86.73 Personal history of transient ischemic attack (TIA), and cerebral infarction without residual deficits; E11.42 Type 2 diabetes mellitus with diabetic polyneuropathy; Z79.4 Long term (current) use of insulin; B96.29 Other Escherichia coli [E. coli] as the cause of diseases classified elsewhere; Z22.39 Carrier of other specified bacterial diseases; I12.9 Hypertensive chronic kidney disease with stage 1 through stage 4 chronic kidney disease, or unspecified chronic kidney disease; N18.9 Chronic kidney disease, unspecified